=== PATIENT | female | born 1965 | race African-American/Black ===

== ENCOUNTER 2021-01-30 15:10 | Inpatient (IN) | payer MEDICARE, SELFPAY ==
[2021-01-30] VITALS (17 sets, daily range): BP systolic 158–206; BP diastolic 66–94; PULSE 79–88; RESP 12–19; TEMP 36.1; O2SAT 98–100
--- NOTE | ~2021-01-30 | CT_ITS ---
EXAMINATION: CTA chest PE protocol DATE: 02/07/2021 08:30 INDICATION: Dyspnea on exertion. TECHNIQUE: Computed tomography (CT) pulmonary angiogram of the chest was performed with 100 mL Omnipa que-350 intravenous contrast. Additional 3D reconstructions utilizing coronal maximum intensity proje ction (MIP) were performed. Automated exposure control and iterative reconstruction technique were em ployed. The dose-length product was 490.89 mGy-cm. COMPARISON: None FINDINGS: Excellent contrast opacification of the pulmonary arteries. There is mild streak artifact from dense contrast in the superior vena cava and right atrium. Mild scattered respiratory motion artifact. Over all this only mildly decreases sensitivity in some of the smaller subsegmental pulmonary arteries. No pulmonary embolism. Mild dependent atelectasis in the bilateral lower lobes. No pneumonia, pulmonary edema, pleural effusion or pneumothorax. Cardiomegaly. Atherosclerotic coronary artery calcific lesi ons versus stenting. No pericardial effusion. Thoracic aorta is normal in caliber with no dissection. No pathologically enlarged thoracic lymphadenopathy. Small sliding-type hiatal hernia. 1.7 cm parape lvic cyst at the upper pole of the left kidney. Visualized upper abdomen is otherwise unremarkable. M ild thoracic spondylosis. IMPRESSION: 1. Mild dependent atelectasis in the bilateral lower lobes. No pulmonary embolism or other acute card iopulmonary disease. 2. Cardiomegaly. 3. Small sliding-type hiatal hernia. Reviewed, dictated and finalized at [facility]. IAGE AND FAMILY THERAPIST IMPRESSION: 1. Mild dependent atelectasis in the bilateral lower lobes. No pulmonary emboli sm or other acute cardiopulmonary disease. 2. Cardiomegaly. 3. Small sliding-type hiatal hernia.
--- NOTE | ~2021-01-30 | US_ITS ---
EXAMINATION: US soft tissue buttock RT DATE: 02/05/2021 13:04 INDICATION: Hidradenitis. Right buttock drainage. TECHNIQUE: Multiple grayscale and Doppler ultrasound images of the buttocks were obtained. COMPARISON: CT abdomen and pelvis 01/30/2021 FINDINGS: In the subcutaneous right buttock, there is soft tissue of heterogeneous echogenicity with increased vascularity. IMPRESSION: 1. Heterogeneous subcutaneous soft tissue in right buttock with increased vascularity, consistent wit h inflammation. There is likely not a significant drainable component. Reviewed, dictated and finalized at location A. APPLICATION DEVELOPER IMPRESSION: 1. Heterogeneous subcutaneous soft tissue in right buttock with increased vascu larity, consistent with inflammation. There is likely not a significant draina ble component.
--- NOTE | ~2021-01-30 | NM_ITS ---
EXAMINATION: NM eryn stress w perfusion DATE: 02/10/2021 15:02 INDICATION: Coronary artery disease presenting with arrhythmia and shortness of breath TECHNIQUE: Rest images were obtained following intravenous administration of 7.9 mCi Tc99m tetrofosmi n (Myoview). The patient was infused intravenously with Lexiscan (Regadenoson). Then, 25.3 mCi Tc99m tetrofosmin (Myoview) was administered intravenously, and stress images were obtained. Data was recon structed into short axis and horizontal and vertical long axis SPECT images. Gated SPECT images were also obtained. COMPARISON: None. FINDINGS: There is no definite reversible or fixed perfusion abnormality to suggest ischemia or infar ction. There is normal left ventricular chamber size, wall motion and ejection fraction. Left ventr icular ejection fraction measures >70%. IMPRESSION: 1. Normal myocardial perfusion at rest and during stress. 2. Left ventricular ejection fraction measuring >70%. Reviewed, dictated and finalized at location . R COUNSELOR
--- NOTE | ~2021-01-30 | XR_ITS ---
XR chest 1V portable DATE: 02/08/2021 13:13 INDICATION: Assess percutaneous line placement TECHNIQUE: Portable upright AP chest on 02/08/2021 at 13 0 cm COMPARISON: 02/03/2021 CT pulmonary scan 02/01/2021 portable AP chest FINDINGS: There is cardiomegaly and coronary artery calcification. No pulmonary infiltrate or consoli dation, pleural effusion or pulmonary vascular congestion or pneumothorax. Right internal jugular central venous catheter tip overlies the superior cavoatrial junction. No pneu mothorax. IMPRESSION: Right internal artery as well as central venous catheter tip near superior cavoatrial yuri ction Cardiomegaly, coronary artery calcification Reviewed, dictated and finalized at location A. RETE MIXER OPERATOR HELPER IMPRESSION: Right internal artery as well as central venous catheter tip near s uperior cavoatrial junction Cardiomegaly, coronary artery calcification
--- NOTE | ~2021-01-30 | CT_ITS ---
EXAMINATION: CT abdomen pelvis wo con DATE: 01/30/2021 18:47 INDICATION: Right buttocks pain. Upper abdominal pain. TECHNIQUE: Computed tomography (CT) of the abdomen and pelvis was performed with 100 cc Omnipaque 350 intravenous contrast. The dose-length product was 992.43 mGy-cm. Automated exposure control and iter ative reconstruction technique were employed. COMPARISON: None. FINDINGS: Lung bases are unremarkable. No significant pleural or pericardial effusion. There is subcu taneous fatty infiltration with skin thickening in the right gluteal region extending to the perirect al space and also across the midline into the left gluteal region. Findings suspicious for cellulitis . No definite drainable fluid collection to suggest abscess. There is extensive atherosclerosis. There are gallstones with moderate gallbladder distention. The liver, spleen, pancreas, adrenal gland s are unremarkable. There are nonobstructing bilateral renal stones. No hydronephrosis. Nonobstructiv e bowel gas pattern. There is bladder wall thickening. No acute osseous abnormality. IMPRESSION: 1. Extensive subcutaneous fatty infiltration with bilateral gluteal skin thickening extending to the perirectal space. Findings compatible with cellulitis. No drainable fluid collection to suggest absce ss. 2: Cholelithiasis. 3: Nonobstructing bilateral renal stones. Reviewed, dictated and finalized at location A. ING MACHINE OPERATOR IMPRESSION: 1. Extensive subcutaneous fatty infiltration with bilateral gluteal skin thicke peace extending to the perirectal space. Findings compatible with cellulitis. No drainable fluid collection to suggest abscess. 2: Cholelithiasis. 3: Nonobstructing bilateral renal stones.
--- NOTE | ~2021-01-30 | XR_ITS ---
EXAMINATION: XR chest 2V 01/30/2021 15:47 INDICATION: Left chest pain PROCEDURE: 2 views of the chest COMPARISON: No prior studies for comparison. FINDINGS: There is a focal nodular density in the left upper lung medially may represent prominent co stal cartilage calcification, although follow-up CT recommended to exclude pulmonary nodule. The card iomediastinal silhouette is within normal limits. There are no pleural effusions. There is no pneum othorax suspected. There is a vascular stent in the left upper extremity. IMPRESSION: 1: NO ACUTE CARDIOPULMONARY DISEASE. 2: Focal nodular density in the left upper lung medially may represent prominent costal cartilage luis a cification, although follow-up CT recommended to exclude pulmonary nodule. Reviewed, dictated and finalized at location A. SCHOOL PROFESSIONAL IMPRESSION: 1: NO ACUTE CARDIOPULMONARY DISEASE. 2: Focal nodular density in the left upper lung medially may represent prominen t costal cartilage calcification, although follow-up CT recommended to exclude pulmonary nodule.
--- NOTE | ~2021-01-30 | XR_ITS ---
EXAMINATION: XR chest port-a-cath/central DATE: 02/01/2021 14:01 INDICATION: Central line placement. TECHNIQUE: A single frontal view of the chest was obtained. COMPARISON: Chest 2 views 01/30/2021, CT abdomen and pelvis 01/30/2021 FINDINGS: The chest demonstrates clear lungs without pneumonia, pleural effusion, or pneumothorax. Th e heart size is normal. There is a right internal jugular central venous catheter with tip at superio r cavoatrial junction. IMPRESSION: 1. Central line tip at superior cavoatrial junction. Reviewed, dictated and finalized at location A. HEALTH CARE WORKER
--- NOTE | ~2021-01-30 | CT_ITS ---
EXAMINATION: CT abdomen pelvis wo con DATE: 02/06/2021 14:46 INDICATION: Hidradenitis. Sore on the buttocks. TECHNIQUE: Computed tomography (CT) of the abdomen and pelvis was performed without intravenous contr ast. Automated exposure control and iterative reconstruction technique were employed. The dose-length product was 1286.15 mGy-cm. COMPARISON: None FINDINGS: Mild linear discoid atelectasis in the left and right lower lobes. Heart size is normal. No pericardi al or pleural effusion. Multiple small calcified gallstones in the dependent aspect of the normal gal lbladder. No gallbladder wall thickening or pericholecystic inflammatory stranding to suggest acute c holecystitis. Liver is normal with no intrahepatic biliary ductal dilation. Spleen, pancreas and bila teral adrenal glands are normal. 1.6 cm parapelvic cyst at the upper pole of the left kidney. There a re multiple calcifications at the bilateral kidneys which could represent nonobstructing nephrolithia sis or more likely atherosclerotic calcific lesions with additional extensive atherosclerotic calcifi cations along many of the arteries of the abdomen and pelvis which suggests diabetes. Bowels includin g the appendix are normal. Diffuse wall thickening of the incompletely distended bladder which could be due to partially decompressed state but could also be seen with cystitis either acute or chronic. A small calcified fibroid at the right side of the uterine fundus. No free intraperitoneal gas or flu id. No pathologically enlarged abdominal or pelvic lymphadenopathy. There is been some interval incre ase in both extent and degree of skin thickening and infiltration of the immediately underlying super ficial subcutaneous fat at the right buttock which extends across the midline to involve the left dean e of the gluteal crease which extends caudally to the proximal most aspect of the posterior medial bi lateral thighs. No abscess or evident deeper extension of the inflammatory changes. Bones are unremar kable. IMPRESSION: 1. Interval progression of extent and degree of skin thickening and infiltration of the superficial s ubcutaneous fat at the right buttock and medial left buttock consistent with cellulitis without assoc iated abscess. 2. Cholelithiasis. 3. Possible bilateral nonobstructing nephrolithiasis versus renal artery atherosclerotic calcificatio ns. Reviewed, dictated and finalized at [facility]. WRAPPER IMPRESSION: 1. Interval progression of extent and degree of skin thickening and infiltratio n of the superficial subcutaneous fat at the right buttock and medial left butt ock consistent with cellulitis without associated abscess. 2. Cholelithiasis. 3. Possible bilateral nonobstructing nephrolithiasis versus renal artery athero sclerotic calcifications.
--- NOTE | 2021-01-30 15:18 | ECG_ITS ---
Measurements Intervals [place] Rate: 85 P: 71 NM: 156 QRS: 19 QRSD: 94 T: 72 QT: 388 QTc: 462 Interpretive Statements SINUS RHYTHM POSSIBLE RIGHT ATRIAL ENLARGEMENT POSSIBLE LEFT ATRIAL ENLARGEMENT BORDERLINE R WAVE PROGRESSION, ANTERIOR LEADS BORDERLINE ST-T WAVE ABNORMALITY- HIGH LATERAL LEADS BORDERLINE ECG Electronically Signed On 01-30-2021 15:52:00 FIELD LOGISTICS COORDINATOR by Bruce Henry D.O.
[2021-01-30 15:41] LABS: Hematocrit 38.5 % (37.0-47.0); Hemoglobin 12.3 g/dL (12.0-15.0); Mean Corpuscular HGB Conc 31.9 g/dl (32-36); Mean Corpuscular Hemoglobin 30.6 pg (26-34); Mean Corpuscular Volume 95.8 fl (80-100); Mean Platelet Volume 9.8 fl (7.4-10.4); Platelet Count Result 342 k/mm3 (150-375); Red Blood Count 4.02 M/mm3 (4.2-5.4); Red Cell Distribution Width 15.9 % (11.5-14.5); White Blood Count 25.3 K/mm3 (4.5-10.0)
[2021-01-30 15:50] LABS: Alanine Aminotransferase 14 U/L (4-35); Albumin Level 3.9 g/dL (3.5-5.1); Alkaline Phosphatase 246 U/L (38-126); Anion Gap 8 mmol/L (8-16); Aspartate Amino Transferase 21 U/L (14-36); Bilirubin,Total 0.9 mg/dL (0.2-1.3); Blood Urea Nitrogen 22 mg/dL (7-17); Calcium 9.6 mg/dL (8.4-10.2); Carbon Dioxide 30 mmol/L (22-30); Chloride 95 mmol/L (98-107); Estimated CRCL calculation 14 ml/min; Estimated Glomerular Filt Rate 9; Glucose 129 mg/dL (65-110); Lipase 45 U/L (23-300); Potassium 4.2 mmol/L (3.4-5.0); Sodium 133 mmol/L (137-145)
[2021-01-30 15:51] LABS: Partial Thromboplastin Time 26.9 SECONDS (22.3-36.8); Prothrombin Time 13.3 Seconds (11.1-14.7)
[2021-01-30 16:01] LABS: Troponin I < 0.012 ng/mL (0.000-0.034)
[2021-01-30 16:05] LABS: Band Neutrophils Percent 2 % (0-6); Lymphocytes Absolute Manual 3.28 K/mm3 (1.1-4.5); Monocytes Percent Manual 2 % (3-9); Neutrophils Percent Manual 83 % (46-73); Total Cells Counted 100
[2021-01-30 16:06] LABS: Anisocytosis 2+ (NORMAL); Platelet Estimate Adequate (Adequate)
--- NOTE | 2021-01-30 17:27 | PC.NURSE ---
Dr. Schofield at bedside for pt assessment.
--- NOTE | 2021-01-30 17:43 | PC.NURSE ---
Attempted IV access x1 without success. Pt can only have sticks on right upper extremity and refuses to allow any attempts made anywhere other than right hand.
--- NOTE | 2021-01-30 17:48 | ED.CHESTPAIN ---
HPI - Chest Pain General Chief Complaint: Chest Pain Stated Complaint: CP, Jaw Pain, Shoulder Pain, Nausea Time Seen by Provider: 01/30/21 17:19 Source: patient and RN notes reviewed Mode of arrival: ambulatory Limitations: no limitations History of Present Illness HPI narrative: This is a 55 year old female with history of ESRD on dialysis, hypertension, CHF and CAD s/p stent who presents for evaluation of chest pain and shortness of breath. She had dialysis yesterday, and she has not felt well since she got home yesterday. She has been having intermittent upper abdominal and left lower chest pain since last night. She describes her pain has dull ache that is worse with laying supine and exertion. She also reports associated nausea, vomiting, shortness of breath. She has pain in her jaw and left arm. She denies pain currently. She developed nausea and vomiting with pushing on her abdomen. She also reports diarrhea. She just moved here from [place] so she does not have primary care physician or signal maintainer. 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 Related Data Home Medications Medication Instructions Recorded Confirmed B complex with C 20-folic acid 1 cap PO DAILY 01/30/21 [Triphrocaps] atorvastatin 10 mg PO HS 01/30/21 carvedilol 25 mg PO BID 01/30/21 cephalexin 500 mg PO Q12H 01/30/21 doxycycline hyclate 100 mg PO DAILY 01/30/21 gabapentin 100 mg PO HS 01/30/21 nifedipine 60 mg PO DAILY 01/30/21 omeprazole 20 mg PO DAILY 01/30/21 Allergies Allergy/AdvReac Type Severity Reaction Status Date / Time No Known Allergies Allergy Verified 01/30/21 18:06 Review of Systems Review of Systems: All systems reviewed & are unremarkable except as noted in HPI and below PMFSH Past Medical History Medical History (Updated 01/30/21 @ 21:48 by Gale Schofield MD) CHF (congestive heart failure) Coronary artery disease ESRD on dialysis Hypertension Surgical History Surgical History (Updated 01/30/21 @ 17:58 by Gale Schofield MD) History of coronary artery stent placement Social History Social History (Updated 01/30/21 @ 17:58 by Gale Schofield MD) Smoking status: Never smoker Exam Const: General: alert Orientation/consciousness: patient oriented x3 Eyes: EOM: EOMs intact bilaterally Resp: Effort & Inspection: normal respiratory effort and no retractions Auscultation: clear to auscultation bilaterally Cardio: Rate: regular rate Rhythm: regular rhythm Heart sounds: no murmurs GI: GI Palp: Yes Soft to palpation, Yes Tenderness to palpation present (GI) (epigastric, LUQ) and No Guarding due to palpation present (GI) : General: Yes no CVA tenderness Skin: General skin exam: normal color Rashes: no rashes Neuro: General: patient oriented x3, moves all extremities and CN's II-XI intact bilaterally Psych: Mental Status: mental status grossly normal Affect: normal affect Course Reevaluation(s) Reevaluation #1: I have discussed with patient that she will be admitted to hospital for her elevated wbc with cellulitis, chest pain with high risk. She is agreeable. Patient with nausea and vomiting so aspirin not given at this time. Date: 01/30/21 Time: 19:28 Consultations Consultation #1: Naty Amaya with hospitalist accepts patient to service Date: 01/30/21 Time: 19:28 Consultation #2: Dr. Alvarez agrees to consult . He will see patient tomorrow to arrange for dialysis Date: 01/30/21 Time: 19:29 Consultation #3: Dr. Schroeder agrees to consult. Request patient NPO after midnight. Date: 01/30/21 Time: 19:34 Vital Signs Vital signs: Vital Signs Temperature 97.0 F L 01/30/21 15:15 Pulse Rate 88 01/30/21 15:15 Respiratory Rate 14 01/30/21 15:15 Blood Pressure 206/89 H 01/30/21 15:15 Pulse Oximetry 100 01/30/21 15:15 Temperature 97.0 F L 01/30/21 15:15 Pulse Rate 85 01/30/21 20:31 Respiratory Rate 15 01/30/21 20:31 Blood Pressure 176/90 H
--- NOTE | 2021-01-30 18:33 | PC.NURSE ---
Pt to CT.
[2021-01-30 18:55] LABS: Troponin I 0.012 ng/mL (0.000-0.034)
[2021-01-30] MEDS: ONDANSETRON INJ 4 MG/2 ML VIAL IV PUSH (19:02)
[2021-01-30] MEDS: hydrALAZINE HCL 20 MG/ML VIAL 10 MG IV PUSH (19:23)
[2021-01-30 20:42] LABS: Glucose Point of Care 116 mg/dl (65-105)
[2021-01-30 21:25] LABS: Troponin I 0.015 ng/mL (0.000-0.034)
--- NOTE | 2021-01-30 23:46 | PM.IMHP ---
H&P: HPI History of Present Illness Date/Time: 01/30/21 23:46 this is a 55-year-old female patient who has a history of end-stage renal disease and has dialysis on Wednesday and Wednesday. The patient stated that her last dialysis was Wednesday and she has not felt very well since then. 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 The wound to her buttocks is losing thick white drainage and has a order smell to it. The patient stated that she also has some pain to her buttocks. The patient has been having some intermittent apart abdominal pain and left lower chest pain since last night. She stated her pain was dull and was worse when she was lying supine and also with exertion. The patient has been having some nausea vomiting and shortness of breath. She also had some pain to her drawn left arm. Her pain is now relieved. The patient stated that she recently moved to [place] from [place] and does not have a primary care physician or employment clerk. 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 Cardiology and Nephrology have been consulted. Abdominal pelvis CT was read as extensive subcutaneous fatty infiltration and bilateral gluteal skin thickening extending in the perirectal space. Findings compatible with cellulitis. No drainable fluid collection to suggest abscess. Cholelithiasis. Nonobstructive bilateral renal stones. When I assessed the patient I was able to express some thick white drainage from the right buttocks. We did culture that in the emergency room. Blood cultures were drawn in the emergency room as well. Chest x-ray was read as no acute cardiopulmonary disease. Focal nodular density in the left upper lung medial may represent prominent costal cartilage calcification although follow-up CT recommend to exclude pulmonary nodule. The patient was started on Primaxin and vancomycin as per antibiotic stewardship for diabetic cellulitis. Her white count is 25.3. Sodium 133. Chloride 95. BUN 22 creatinine 4.8. Troponin is negative x3. Alkaline phosphatase 246. Capillary glucose 116. The patient is being admitted to observation status on the date of service 01/30/2021. Chief Complaint: Chest pain Review of Systems Review of Systems: All systems reviewed & are unremarkable except as noted in HPI and below Constitutional: Constitutional: Reports as per HPI and Reports no additional constitutional complaints Eyes: Eyes: Reports as per HPI and Reports no additional eye complaints ENT: Reports system reviewed and no additional complaints, except as documented and Reports Normal hearing present Cardiovascular: Cardiovascular: Reports no additional cardiovascular complaints Respiratory: Respiratory: Reports no additional respiratory complaints and Reports no additional respiratory complaints Gastrointestinal: Gastrointestinal: Reports as per HPI and Reports no additional gastrointestinal complaints Musculoskeletal: Musculoskeletal: Reports no additional musculoskeletal complaints Integumentary/Breasts: Skin/Breast: Reports system reviewed and no additional complaints, except as docu and Reports as per HPI Neurologic: Reports system reviewed and no additional complaints, except as documented, Reports as per HPI and Reports Normal hearing present Psychiatric: Psychiatric: Reports no additional psychiatric complaints and Reports as per HPI Endocrine: Endocrine: Reports no additional endocrine complaints Hematologic/Lymphatic: Hematologic/Lymphatic: Reports no additional hematologic/lymphatic complaints Allergic/Immunologic: Allergic/Immunologic: Reports no additional allergic/immunologic complaints [facility] Past Medical History Medical History (Updated 01/30/21 @ 23:54 by Naty Amaya NP) AV fistula Left forearm CHF (congestive heart failure) Coronary artery disease DM2 (diabetes mellitus, type 2) ESRD on dialysis Hypertension Surgical History Surgical History (Upd
[2021-01-31] VITALS (22 sets, daily range): BP systolic 150–194; BP diastolic 41–101; PULSE 72–97; RESP 16; TEMP 36–37.2; O2SAT 100; BMI 34.9
--- NOTE | 2021-01-31 | ECHO_ITS ---
Patient Info Name: Sussy Jarvis Age: 55 years : 1965 Gender: Female Ht: 65 in Wt: 211 lbs BSA: 2.14 m2 HR: 82 bpm BP: 177 / 81 mmHg Heart Rhythm: Sinus Rhythm Technical Quality: Good Exam Date: 01/31/2021 2:44 PM Exam Location: [facility] Card Pulmonary Patient Status: Inpatient Admit Date: 01/31/2021 Staff Ordering Physician: Naty Amaya NP Glass Grinder: SHEYLA Attending Provider: Clifford Choi MD Referring Physician: Jose Luis MORALES; Exam Type: CA echo doppler color flow Study Info Indications - SOB, HX CHF Complete two-dimensional, color flow and Doppler transthoracic echocardiogram is performed. Summary 1. Complete two-dimensional, color flow and Doppler transthoracic echocardiogram is performed. 2. Left ventricular chamber dimension is mildly enlarged. 3. Left ventricular systolic function is normal, estimated at 55%. 4. There is mildly increased left ventricular wall thickness. 5. Left ventricular septal wall motion is abnormal with septal motion related to bundle branch block. 6. The left ventricular diastolic function is grade I diastolic dysfunction. 7. There is trace tricuspid valve regurgitation. 8. No pulmonary hypertension, estimated pulmonary arterial systolic pressure is 33 mmHg. 9. There is mild to moderate mitral valve regurgitation. Left Ventricle Left ventricular chamber dimension is mildly enlarged. Left ventricular systolic function is normal, estimated at 55%. There is mildly increased left ventricular wall thickness. Left ventricular septal wall motion is abnormal with septal motion related to bundle branch block. The left ventricular diastolic function is grade I diastolic dysfunction. Right Ventricle Right ventricular chamber dimension is normal. Right ventricular systolic function is normal. Left Atria Left atrial chamber dimension is mildly enlarged. Right Atria Right atrial chamber dimension is mildly enlarged. Aortic Valve The aortic valve is trileaflet. There is no aortic valve stenosis. There is no aortic valve regurgitation. Pulmonic Valve The pulmonic valve is not well visualized. There is trace pulmonic regurgitation. Mitral Valve The mitral valve has thickened leaflets. There is mild to moderate mitral valve regurgitation. The mitral valve annulus is mildly calcified. Tricuspid Valve The tricuspid valve leaflets are normal. There is trace tricuspid valve regurgitation. No pulmonary hypertension, estimated pulmonary arterial systolic pressure is 33 mmHg. Pericardium/Pleural The pericardium appears normal. There is small pericardial effusion. Inferior Vena Cava Normal inferior vena cava with >50% collapse upon inspiration consistent with normal right atrial pressure, 5 mmHg. Aorta The aortic root size at the sinus of Valsalva is normal. Left Ventricular Outflow Tract Name Value Normal LVOT 2D LVOT Diameter 2.1 cm LVOT Doppler LVOT Peak Gradient 5 mmHg LVOT Mean Gradient 3 mmHg LVOT VTI 23 cm LVOT VTI/AV VTI Rat
[2021-01-31] MEDS: diphenhydrAMINE HCl CAP 25 MG CAPSULE PO (03:23)
[2021-01-31] MEDS: ACETAMINOPHEN 325 MG TABLET 650 MG PO ×2 (03:55→14:02)
[2021-01-31 05:59] LABS: Basophils Absolute Auto 0.1 K/mm3 (0.0-0.1); Basophils Percent Auto 0.3 % (0.2-1.2); Eosinophils Absolute Auto 0.3 K/mm3 (0-0.3); Eosinophils Percent Auto 1.2 % (0-4.4); Hematocrit 30.2 % (37.0-47.0); Hemoglobin 9.7 g/dL (12.0-15.0); Immature Granulocyte Absolute 0.14 K/mm3 (0.00-0.031); Immature Granulocyte Percent A 0.6 % (0-0.5); Lymphocytes Absolute Auto 2.82 K/mm3 (0.9-3.2); Lymphocytes Percent Auto 11.4 % (18.3-44.2); Mean Corpuscular HGB Conc 32.1 g/dl (32-36); Mean Corpuscular Hemoglobin 30.4 pg (26-34); Mean Corpuscular Volume 94.7 fl (80-100); Mean Platelet Volume 10.3 fl (7.4-10.4); Monocytes Absolute Auto 1.1 K/mm3 (0.1-0.6); Monocytes Percent Auto 4.6 % (2.6-8.5); Neutrophils Absolute Auto 20.2 K/mm3 (1.3-6.7); Neutrophils Percent Auto 81.9 % (45.5-73.1); Platelet Count Result 321 k/mm3 (150-375); Red Blood Count 3.19 M/mm3 (4.2-5.4); Red Cell Distribution Width 15.9 % (11.5-14.5); White Blood Count 24.7 K/mm3 (4.5-10.0)
[2021-01-31 06:14] LABS: Lactic Acid Reflex < 0.5 mmol/L (0.7-2.1)
[2021-01-31 06:15] LABS: Alanine Aminotransferase 9 U/L (4-35); Albumin Level 2.9 g/dL (3.5-5.1); Alkaline Phosphatase 158 U/L (38-126); Anion Gap 7 mmol/L (8-16); Aspartate Amino Transferase 17 U/L (14-36); Bilirubin,Total 0.6 mg/dL (0.2-1.3); Blood Urea Nitrogen 24 mg/dL (7-17); Calcium 8.8 mg/dL (8.4-10.2); Carbon Dioxide 29 mmol/L (22-30); Chloride 94 mmol/L (98-107); Estimated CRCL calculation 13 ml/min; Estimated Glomerular Filt Rate 10; Glucose 89 mg/dL (65-110); Lactate Dehydrogenase 271 U/L (313-618); Magnesium 1.8 mg/dL (1.6-2.3); Potassium 3.7 mmol/L (3.4-5.0); Sodium 130 mmol/L (137-145)
--- NOTE | 2021-01-31 06:37 | ECG_ITS ---
Measurements Intervals [place] Rate: 76 P: 65 [place]: 174 QRS: 22 QRSD: 93 T: 66 QT: 407 QTc: 460 Interpretive Statements SINUS RHYTHM NORMAL ECG Electronically Signed On 02-04-2021 8:30:55 COMMUNITY RELATIONS REPRESENTATIVE by Bruce Henry D.O.
[2021-01-31 07:00] LABS: Platelet Estimate Adequate (Adequate)
[2021-01-31 07:01] LABS: Anisocytosis 2+ (NORMAL); Stomatocytes 1+ (NORMAL)
[2021-01-31 07:09] LABS: Hepatitis B Surface Antigen Negative (Negative)
[2021-01-31 07:15] LABS: HAV RESULT Negative (Negative); Hepatitis B Core IgM Result Negative (Negative)
[2021-01-31 07:38] LABS: Hepatitis B Surface Anti Res Positive; Hepatitis C Virus Antibody Negative (Negative)
--- NOTE | 2021-01-31 08:55 | PC.NURSE ---
pts 0900 meds held due to pending dialysis
--- NOTE | 2021-01-31 09:00 | PC.NURSE ---
Patient transferred to Dialysis via bedcart. Patients 0900 medications held till after dialysis per Physician.
[2021-01-31 09:27] LABS: Hemoglobin A1C 6.2 % (<5.7)
[2021-01-31] MEDS: SODIUM CHLORIDE 0.9% IV 1,000 ML 999 ML IV CONT (10:58)
--- NOTE | 2021-01-31 11:32 | PM.IMPN ---
Progress Note: A&P Assessment and Plan (1) Cellulitis and abscess of buttock: Code(s): L02.31 - Cutaneous abscess of buttock; L03.317 - Cellulitis of buttock Status: Acute Assessment and Plan: As per diabetic cellulitis antibiotic stewardship the patient was started on Primaxin and vancomycin. Wound and blood cultures are pending. Surgery consulted patient has a history of hidradenitis suppurativa follow wound culture. (2) ESRD on dialysis: Code(s): N18.6 - End stage renal disease; Z99.2 - Dependence on renal dialysis Status: Acute Assessment and Plan: Patient has dialysis on Wednesday and nephrology has been consulted. (3) Hypertension: Code(s): I10 - Essential (primary) hypertension Status: Chronic Assessment and Plan: Continue with home medications. nifedipine and carvedilol. (4) CHF (congestive heart failure): Code(s): I50.9 - Heart failure, unspecified Status: Chronic Assessment and Plan: Most likely diastolic stable continue home medication Continue with Coreg. I did order an echo as well. (5) DM2 (diabetes mellitus, type 2): Code(s): E11.9 - Type 2 diabetes mellitus without complications Status: Chronic Assessment and Plan: Accu-Cheks AC and HS. Sliding scale insulin. Subjective Date/time seen: 01/31/21 11:32 Interval history: Patient seen and examined Patient presented to the hospital with increased discharge from skin wound where she was found to have sepsis secondary to abscess patient has history of hydradenitis suppurativa Patient denies fever headache chest pain shortness of breath I am seeing the patient for sepsis Exam Narrative: Alert Chest no wheeze crackles Abdomen nontender nondistended CVS S1 + S2 Skin of the buttock bilateral area of inflammation and oozing of scan consistent with cellulitis and hidradenitis suppurative and abscess Lower extremity edema Objective Data Vital Signs Vital Signs: Vital Signs - 24 hr 01/30/21 15:15 01/30/21 17:32 01/30/21 17:33 Temperature 97.0 F L Pulse Rate 88 Respiratory Rate 14 17 Blood Pressure 206/89 H Pulse Oximetry 100 100 100 01/30/21 17:42 01/30/21 17:45 01/30/21 17:47 Temperature Pulse Rate 82 83 Respiratory Rate 18 19 Blood Pressure 172/82 H Pulse Oximetry 98 100 100 01/30/21 18:00 01/30/21 18:01 01/30/21 18:15 Temperature Pulse Rate 82 80 82 Respiratory Rate 17 17 13 Blood Pressure 164/71 H Pulse Oximetry 100 100 100 01/30/21 18:45 01/30/21 18:46 01/30/21 19:00 Temperature Pulse Rate 85 83 81 Respiratory Rate 18 12 13 Blood Pressure 174/75 H Pulse Oximetry 100 100 100 01/30/21 19:01 01/30/21 19:22 01/30/21 20:31 Temperature Pulse Rate 81 79 85 Respiratory Rate 14 15 15 Blood Pressure 196/94 H 176/90 H Pulse Oximetry 100 100 100 01/30/21 21:47 01/30/21 23:52 01/31/21 02:49 Temperature Pulse Rate 82 84 82 Respiratory Rate 18 17 16 Blood Pressure 158/66 H 170/81 H 177/81 H Pulse Oximetry 100 99 100 01/31/21 09:15 01/31/21 09:28 01/31/21 09:45 Temperature 98.9 F Pulse Rate 82 73 75 Respiratory Rate 16 Blood Pressure 192/93 H 186/101 H 185/95 H Pulse Oximetry 01/31/21 10:00 01/31/21 10:15 01/31/21 10:30 Temperature Pulse Rate 75 97 77 Respiratory Rate Blood Pressure 189/98 H 150/81 H 183/99 H Pulse Oximetry 01/31/21 10:45 01/31/21 11:00 01/31/21 11:15 Temperature Pulse Rate 79 77 78 Respiratory Rate Blood Pressure 167/41 H 191/91 H 180/91 H Pulse Oximetry Intake/Output Intake/Output: Intake & Output 01/28/21 01/29/21 01/30/21 01/31/21 23:59 23:59 23:59 23:59 Intake Total 600 100 Balance 600 100 Meds/Results Medications: Active Medications Generic Name Dose Route Start Last Admin Trade Name Freq PRN Reason Stop Dose Admin Acetaminophen 650 mg 01/31/21 03:42 01/31/21 03:55 Acetaminophen 32
--- NOTE | 2021-01-31 12:25 | PM.PNNEP ---
Progress Note: A&P Assessment and Plan (1) End stage renal disease: Code(s): N18.6 - End stage renal disease Status: Chronic Assessment and Plan: HD today and continue M/W/ schedule follow electrolytes, volume status, and clearance (2) Cellulitis and abscess of buttock: Code(s): L02.31 - Cutaneous abscess of buttock; L03.317 - Cellulitis of buttock Status: Acute Assessment and Plan: as demonstrated by physical exam and imaging studies appropriate cultures obtained continue IV antibiotic therapy General Surgery consulted -- further intervention needed (I & D?) (3) Hypertension: Code(s): I10 - Essential (primary) hypertension Status: Chronic Assessment and Plan: elevated at this time resume home medications follow trend of hemodynamics may need further adjustment to medication (versus additions of PRN meds) (4) DM2 (diabetes mellitus, type 2): Code(s): E11.9 - Type 2 diabetes mellitus without complications Status: Chronic Assessment and Plan: follow accuchecks glycemic control FULL CONSULT to follow. Subjective Date/time seen: 01/31/21 12:25 Patient tolerating hemodialysis treatment well at the time of my visit (seen on HD at 12:15PM); no acute distress voiced; pain control seems adequate; no other complaints/concerns to report currently; no issues/events overnight or earlier this morning. Exam Narrative: General: WD/WN AA female in NAD Heart: normal S1 and S2; no rub Lungs: clear to auscultation Abdomen: soft, nontender, nondistended, positive bowel sounds Extremities: no cyanosis or clubbing; trace edema Skin: erythema/drainage from right buttock area Objective Data Vital Signs Vital Signs: Vital Signs Temp Pulse Resp BP Pulse Ox 01/31/21 12:15 81 194/91 H 01/31/21 12:00 78 190/92 H 01/31/21 11:45 78 191/98 H 01/31/21 11:30 78 183/91 H 01/31/21 11:15 78 180/91 H 01/31/21 11:00 77 191/91 H 01/31/21 10:45 79 167/41 H 01/31/21 10:30 77 183/99 H 01/31/21 10:15 97 150/81 H 01/31/21 10:00 75 189/98 H 01/31/21 09:45 75 185/95 H 01/31/21 09:28 73 186/101 H 01/31/21 09:15 37.2 C 82 16 192/93 H 01/31/21 02:49 82 16 177/81 H 100 01/30/21 23:52 84 17 170/81 H 99 01/30/21 21:47 82 18 158/66 H 100 01/30/21 20:31 85 15 176/90 H 100 01/30/21 19:22 79 15 196/94 H 100 01/30/21 19:01 81 14 100 01/30/21 19:00 81 13 100 01/30/21 18:46 83 12 174/75 H 100 01/30/21 18:45 85 18 100 01/30/21 18:15 82 13 100 01/30/21 18:01 80 17 164/71 H 100 01/30/21 18:00 82 17 100 01/30/21 17:47 83 19 172/82 H 100 01/30/21 17:45 82 18 100 01/30/21 17:42 98 01/30/21 17:33 100 01/30/21 17:32 17 100 01/30/21 15:15 36.1 C L 88 14 206/89 H 100 Intake/Output Intake/Output: Intake & Output 01/28/21 01/29/21 01/30/21 01/31/21 23:59 23:59 23:59 23:59 Intake Total 600 100 Output Total 1000 Balance 600 -900 Meds/Results Medications: Active Medications Generic Name Dose Route Start Last Admin Trade Name Janusz PRN Reason Stop Dose Admin Acetaminophen 650 mg 01/31/21 03:42 01/31/21 03:55 Acetaminophen 325 Mg Tablet PO 650 mg Q6H PRN Administration Mild Pain (1-3) or Fever Carvedilol 25 mg 01/31/21 11:50 Carvedilol 25 Mg Tablet PO Q12HR ROMULO Dextrose 12.5 gm 01/31/21 00:00 Dextrose 50% 25 Gm/50 Ml Syringe IV PUSH PRN PRN Hypoglycemia Protocol Doxycycline Hyclate 100 mg 01/31/21 09:00 Doxycycline Hyclate 100 Mg Tablet PO 03/03/21 08:59 DAILY ROMULO Glucagon 1 mg 01/31/21 00:00 Glucagon For Inj 1 Mg Vial IM PRN PRN Hypoglycemia Protocol Glucose 15 gm 01/31/21 00:00 Glucose Oral Gel 15 Gm Of Glucse In 37.5 Gm Tube PO PRN PRN Hypoglycemia Protoco
[2021-01-31] MEDS: NIFEdipine 30 MG TAB.ER.24 60 MG PO (13:46)
[2021-01-31] MEDS: DOXYCYCLINE HYCLATE 100 MG TABLET PO (13:46)
[2021-01-31] MEDS: PANTOPRAZOLE 40 MG TABLET PO (13:47)
--- NOTE | 2021-01-31 13:55 | PM.CNCAR ---
Assessment and Plan Assessment and plan (1) Chest pain: Code(s): R07.9 - Chest pain, unspecified Status: Acute Assessment and Plan: Resolved, atypical, negative serial cardiac enzymes most likely secondary to hypertensive urgency presentation. Although she has a history of CAD details in this regard are not known. She reports a prior history of stents but has not been maintained on aspirin for unclear reasons. Continue to monitor for recurrence. Aggressive medical therapy at this time. Will discuss noninvasive ischemic evaluation as an outpatient as appropriate after review of prior records. Telemetry for now. 2D echocardiogram to assess LV size/function, LV wall thickness, valve pathology pulmonary pressures. Recommendation to follow after review. Continue PPI for history of GERD. (2) Hypertensive urgency: Code(s): I16.0 - Hypertensive urgency Status: Acute Assessment and Plan: BP improved but remains rather hypertensive. Aggressive BP control. Add lisinopril 10 mg daily. Hydralazine if necessary. (3) Coronary artery disease: Code(s): I25.10 - Atherosclerotic heart disease of cahto coronary artery without angina pectoris Status: Acute Assessment and Plan: Reports prior history of stent implantation. Add aspirin 81 mg daily. Continue atorvastatin goal LDL less than 70. Check lipid panel. Obtain prior records from [place]. Please have patient sign a release of information. Further recommendations after review of these records. Patient may follow up with this as an outpatient in the office to be seen within 4 weeks. (4) Cellulitis and abscess of buttock: Code(s): L02.31 - Cutaneous abscess of buttock; L03.317 - Cellulitis of buttock Status: Acute Assessment and Plan: Her hospitalist service. (5) ESRD on dialysis: Code(s): N18.6 - End stage renal disease; Z99.2 - Dependence on renal dialysis Status: Acute Assessment and Plan: Per nephrology. Patient feeling much better after hemodialysis today. (6) CHF (congestive heart failure): Code(s): I50.9 - Heart failure, unspecified Status: Chronic Assessment and Plan: Patient is not in acute decompensated heart failure at this time. Volume management per hemodialysis. (7) DM2 (diabetes mellitus, type 2): Code(s): E11.9 - Type 2 diabetes mellitus without complications Status: Chronic Assessment and Plan: Per primary service. History of Present Illness History of Present Illness Consult date/time: Date of service: 01/31/21 13:55 Cardiology consultation at the request of Dr. Shi of the [facility] service for opinion regarding history of CAD and complaints of chest pain. Requesting physician: Jasmine Shi M.A., MD Consult reason: chest pain Reason For Visit: Buttock Cellulitis,Hypertension,Chest Pain,ESRD on Narrative: Patient is a very pleasant 55-year-old female recently relocated to this area from [place], [place] with a past medical history significant for CAD status post stent implantation 2-3 years ago, end-stage renal disease on hemodialysis Wednesday, hypertension, GERD, type 2 diabetes mellitus, mixed hyperlipidemia associated with diabetes mellitus, obesity who states she was in her usual state of health when she went to dialysis on Wednesday as scheduled in began to feel quite poorly thereafter. Patient states she typically feels nauseous and so does not eat prior to dialysis. However, she did not feel well and then awoke the following morning with abdominal pain and lower chest pain which radiated to the left chest, left shoulder and neck. This persisted for some time and was initially dull worse in supine position and activity. He noted some shortness of breath due to persistence she then presented to the emergency department for further evaluation. She initially thought her symptoms were secondary to acid
--- NOTE | 2021-01-31 14:00 | ADMGEN ---
This patient, Sussy Jarvis, was admitted to Medical Room 245-. Patient/family oriented to hospital policies and general routines including ID bracelet, bed and alarms, visiting hours, pain management, procedures, bathroom and other care routines, personal items, smoking policy, room service/diet, and visiting hours. Information on how to activate the Rapid Response Team has been discussed. Patient/Family are encouraged to report perceived risks to care and to ask questions if they do not understand what they are told or what they should do.
[2021-01-31 14:15] LABS: Glucose Point of Care 73 mg/dl (65-105)
[2021-01-31 16:39] LABS: Glucose Point of Care 150 mg/dl (65-105)
[2021-01-31] MEDS: lisinopriL 10 MG TABLET PO (17:24)
[2021-01-31] MEDS: carvediloL 25 MG TABLET PO (17:24)
[2021-01-31] MEDS: MAGNESIUM SULF 2 GM/WATER 50ML 2 GM/50 ML BAG IVPB (18:01)
[2021-01-31 21:42] LABS: Vancomycin Random 12.1 ug/mL (10-20)
[2021-01-31 21:43] LABS: Glucose Point of Care 167 mg/dl (65-105)
[2021-01-31] MEDS: traMADol HCL (*CRX) 25 MG TABLET PO (21:44)
[2021-02-01] VITALS (11 sets, daily range): BP systolic 117–155; BP diastolic 54–69; PULSE 65–88; RESP 16–20; TEMP 35.9–36.5; O2SAT 96–100
[2021-02-01 05:49] LABS: Cholesterol 105 mg/dL (0-200); HDL Direct 39 mg/dL; Triglycerides 66 mg/dL (<150)
[2021-02-01 06:00] LABS: LDL Cholesterol Direct 38 mg/dL
[2021-02-01] MEDS: traMADol HCL (*CRX) 25 MG TABLET PO ×3 (06:20→23:23)
[2021-02-01 07:38] LABS: Glucose Point of Care 121 mg/dl (65-105)
--- NOTE | 2021-02-01 09:22 | PM.IMPN ---
Progress Note: A&P Assessment and Plan (1) Cellulitis and abscess of buttock: Code(s): L02.31 - Cutaneous abscess of buttock; L03.317 - Cellulitis of buttock Status: Acute Assessment and Plan: As per diabetic cellulitis antibiotic stewardship the patient was started on Primaxin and vancomycin. Wound and blood cultures are pending. Surgery consulted patient has a history of hidradenitis suppurativa follow wound culture. (2) ESRD on dialysis: Code(s): N18.6 - End stage renal disease; Z99.2 - Dependence on renal dialysis Status: Acute Assessment and Plan: Patient has dialysis on Wednesday and nephrology has been consulted. (3) Hypertension: Code(s): I10 - Essential (primary) hypertension Status: Chronic Assessment and Plan: Continue with home medications. nifedipine and carvedilol. (4) CHF (congestive heart failure): Code(s): I50.9 - Heart failure, unspecified Status: Chronic Assessment and Plan: Most likely diastolic stable continue home medication Continue with Coreg. I did order an echo as well. (5) DM2 (diabetes mellitus, type 2): Code(s): E11.9 - Type 2 diabetes mellitus without complications Status: Chronic Assessment and Plan: Accu-Cheks AC and HS. Sliding scale insulin. (6) V-tach: Code(s): I47.2 - Ventricular tachycardia Status: Acute Assessment and Plan: Nonsustained episodes of V-tach 16 beats continue Coreg replace potassium and magnesium echo was reviewed Subjective Date/time seen: 02/01/21 09:22 Interval history: Patient seen and examined Patient presented to the hospital with increased discharge from skin wound where she was found to have sepsis secondary to abscess patient has history of hydradenitis suppurativa Patient feels better today Had episode of 60 beat of V-tach overnight resumed Coreg replace magnesium and potassium Patient denies fever headache chest pain shortness of breath I am seeing the patient for sepsis Exam Narrative: Alert Chest no wheeze crackles Abdomen nontender nondistended CVS S1 + S2 Skin of the buttock bilateral area of inflammation and oozing of scan consistent with cellulitis and hidradenitis suppurative and abscess Lower extremity edema Objective Data Vital Signs Vital Signs: Vital Signs - 24 hr 01/31/21 09:28 01/31/21 09:45 01/31/21 10:00 Temperature Pulse Rate 73 75 75 Respiratory Rate Blood Pressure 186/101 H 185/95 H 189/98 H Pulse Oximetry 01/31/21 10:15 01/31/21 10:30 01/31/21 10:45 Temperature Pulse Rate 97 77 79 Respiratory Rate Blood Pressure 150/81 H 183/99 H 167/41 H Pulse Oximetry 01/31/21 11:00 01/31/21 11:15 01/31/21 11:30 Temperature Pulse Rate 77 78 78 Respiratory Rate Blood Pressure 191/91 H 180/91 H 183/91 H Pulse Oximetry 01/31/21 11:45 01/31/21 12:00 01/31/21 12:15 Temperature Pulse Rate 78 78 81 Respiratory Rate Blood Pressure 191/98 H 190/92 H 194/91 H Pulse Oximetry 01/31/21 12:33 01/31/21 12:45 01/31/21 13:30 Temperature 98.6 F Pulse Rate 80 80 80 Respiratory Rate 16 16 Blood Pressure 186/91 H 187/93 H 187/93 H Pulse Oximetry 01/31/21 14:45 01/31/21 16:00 01/31/21 17:29 Temperature 98.1 F Pulse Rate 83 82 87 Respiratory Rate 16 Blood Pressure 189/79 H 156/66 H Pulse Oximetry 100 01/31/21 20:00 01/31/21 22:00 02/01/21 00:00 Temperature 98.3 F Pulse Rate 76 72 78 Respiratory Rate 16 Blood Pressure 157/59 H Pulse Oximetry 100 02/01/21 04:00 02/01/21 06:00 Temperature 97.7 F Pulse Rate 80 76 Respiratory Rate 16 Blood Pressure 155/69 H Pulse Oximetry 96 Intake/Output Intake/Output: Intake & Output 01/29/21 01/30/21 01/31/21 02/01/21 23:59 23:59 23:59 23:59 Intake Total 600 690 900 Output Total 1000 Balance 600 -310 900 Meds/Results Medications: Active Medications Generic Na
[2021-02-01] MEDS: carvediloL 25 MG TABLET PO ×2 (09:27→19:54)
[2021-02-01] MEDS: ASPIRIN 81 MG ENTERIC TABLET PO (09:27)
[2021-02-01] MEDS: DOXYCYCLINE HYCLATE 100 MG TABLET PO (09:27)
[2021-02-01] MEDS: lisinopriL 10 MG TABLET PO (09:27)
[2021-02-01] MEDS: PANTOPRAZOLE 40 MG TABLET PO (09:27)
[2021-02-01] MEDS: ATORVASTATIN 20 MG TABLET PO (09:27)
[2021-02-01] MEDS: NIFEdipine 30 MG TAB.ER.24 60 MG PO (09:27)
[2021-02-01 09:33] LABS: Basophils Absolute Auto 0.1 K/mm3 (0.0-0.1); Basophils Percent Auto 0.3 % (0.2-1.2); Eosinophils Absolute Auto 0.3 K/mm3 (0-0.3); Eosinophils Percent Auto 1.3 % (0-4.4); Hematocrit 30.2 % (37.0-47.0); Hemoglobin 9.4 g/dL (12.0-15.0); Immature Granulocyte Absolute 0.16 K/mm3 (0.00-0.031); Immature Granulocyte Percent A 0.6 % (0-0.5); Lymphocytes Absolute Auto 2.47 K/mm3 (0.9-3.2); Lymphocytes Percent Auto 9.3 % (18.3-44.2); Mean Corpuscular HGB Conc 31.1 g/dl (32-36); Mean Corpuscular Hemoglobin 30.1 pg (26-34); Mean Corpuscular Volume 96.8 fl (80-100); Mean Platelet Volume 10.5 fl (7.4-10.4); Monocytes Absolute Auto 1.2 K/mm3 (0.1-0.6); Monocytes Percent Auto 4.4 % (2.6-8.5); Neutrophils Absolute Auto 22.4 K/mm3 (1.3-6.7); Neutrophils Percent Auto 84.1 % (45.5-73.1); Platelet Count Result 316 k/mm3 (150-375); Red Blood Count 3.12 M/mm3 (4.2-5.4); White Blood Count 26.6 K/mm3 (4.5-10.0)
[2021-02-01 09:45] LABS: Alanine Aminotransferase 10 U/L (4-35); Albumin Level 2.7 g/dL (3.5-5.1); Alkaline Phosphatase 164 U/L (38-126); Anion Gap 8 mmol/L (8-16); Aspartate Amino Transferase 18 U/L (14-36); Bilirubin,Total 0.5 mg/dL (0.2-1.3); Blood Urea Nitrogen 17 mg/dL (7-17); Calcium 8.5 mg/dL (8.4-10.2); Carbon Dioxide 27 mmol/L (22-30); Chloride 97 mmol/L (98-107); Estimated CRCL calculation 17 ml/min; Estimated Glomerular Filt Rate 15; Glucose 152 mg/dL (65-110); Magnesium 2.4 mg/dL (1.6-2.3); Sodium 132 mmol/L (137-145)
--- NOTE | 2021-02-01 11:35 | PM.CNNEP ---
Assessment and Plan Assessment and plan (1) End stage renal disease: Code(s): N18.6 - End stage renal disease Status: Chronic Assessment and Plan: HD yesterday and continue M/W/F schedule while hospitalized follow electrolytes, volume status, and clearance (2) Cellulitis and abscess of buttock: Code(s): L02.31 - Cutaneous abscess of buttock; L03.317 - Cellulitis of buttock Status: Acute Assessment and Plan: as demonstrated by physical exam and imaging studies appropriate cultures obtained continue IV antibiotic therapy General Surgery consulted -- further intervention needed (I & D?) (3) Chest pain: Code(s): R07.9 - Chest pain, unspecified Status: Acute Assessment and Plan: Cardiology following follow telemetry await review of old records continue aggressive medical mangement (multiple risk factors as already noted) (4) Hypertension: Code(s): I10 - Essential (primary) hypertension Status: Chronic Assessment and Plan: better at this time resumed home medications - lisinopril just added follow trend of hemodynamics may need further adjustment to medications (5) DM2 (diabetes mellitus, type 2): Code(s): E11.9 - Type 2 diabetes mellitus without complications Status: Chronic Assessment and Plan: follow accuchecks glycemic control Will continue to follow. History of Present Illness Reason for Consult Consult date: 02/01/21 Reason for consult: end stage renal disease Chief Complaint Chief complaint: Buttock Cellulitis,Hypertension,Chest Pain,ESRD on History of Present Illness Narrative: The patient is a 55-year-old female with a past medical history as outlined below who presented to [facility] Emergency room for further evaluation of a right buttocks wound. The patient states that she had her last dialysis treatment on Wednesday and since that time, she has not felt very well. Further complicating matters is that she is aware of a chronic right buttocks wound that has had ongoing drainage and an associated smell. Other associated symptoms include intermittent abdominal pain as well as left lower chest pain since the evening before admission as well. She reports some mild nausea and vomiting and associated shortness of breath but states the chest pain seems to be doing somewhat better since her admission to the hospital. Given these constellation of symptoms, she presented to the emergency room for further evaluation Workup and evaluation emergency room demonstrated the patient to be hemodynamically stable (actually, she was quite hypertensive with systolic BP greater than 200), and in no otherwise apparent distress. Routine blood test demonstrated labs consistent with her known history of end-stage renal disease but she did have a significant leukocytosis. Her physical exam was noteworthy for what appeared to be a right buttock cellulitis with possible underlying abscess given the persistent drainage that was quite apparent. A CT scan of the abdomen pelvis was done which demonstrated extensive subcutaneous fatty infiltration and bilateral gluteal skin thickening extending in the perirectal space consistent with cellulitis with no overt drainable fluid collection/abscess. Appropriate blood cultures as well as wound cultures were obtained and she was started on broad-spectrum IV antibiotic therapy with subsequent admission to the hospital. Since her admission, she received dialysis yesterday to maintain her Wednesday, Wednesday, Wednesday dialysis schedule and tolerated this intervention reasonably well. She has been tolerating broad-spectrum IV antibiotic therapy as well and pain control has been acceptable. Renal consultation was requested due to her end-stage renal disease. The patient normally dialyzes on a Wednesday, Wednesday, Wednesday dialysis schedule under the care of Dr. Lazo at [facility] Tashi Edward
[2021-02-01 12:31] LABS: Glucose Point of Care 116 mg/dl (65-105)
[2021-02-01] MEDS: ALPRAZolam (*CRX) 0.25 MG TABLET PO (13:18)
--- NOTE | 2021-02-01 14:36 | W.PM.PROC2 ---
Procedure Note - Detailed Date of Procedure 02/01/21 Pre-op Diagnosis poor IV access, sepsis Post-op Diagnosis same Procedure Performed placement of RIJ TLC Surgeon Deepika Montoya MD Anesthesia local Indications 55 y/o F c multiple med issues including ESRD presenting c sepsis requiring IV abx. Pt c poor IV access and needs continuing IV abx. Findings 1st stick RIJ under US Description of Procedure The patient was placed in the supine position. A time-out was then done to verify the patient's identity, as well as the procedure being performed. The patient was then prepped and draped in normal sterile fashion. Using the ultrasound, I was able to identify the right internal jugular vein. I then localized the skin over the vein in the right neck. I then used an 18 gauge needle to gain access into the right internal jugular vein, again using ultrasound guidance. I then fed the guidewire into the right internal jugular vein under ultrasonic guidance. Once this was noted to be in good position, I removed the 18 gauge needle just leaving the guidewire in the vein. I then made the needlestick site larger by using a 11 blade scalpel. I then dilated the vein using the dilator. I then placed the previously flushed catheter over the guidewire into the right internal jugular vein. The catheter was noted to go in easily and I placed this to about 15 cm. I then removed the guidewire, just leaving the catheter in the vein. I was able to easily draw and flush from all 3 ports. I then secured the catheter to the right neck using interrupted 2-0 silk sutures. Sterile dressing including Biopatch was placed. The patient tolerated the procedure well. Implants RIJ TLC Estimated Blood Loss 5 Drains No Packing No Pathology none sent Complications No immediate complications Condition stable Disposition floor
--- NOTE | 2021-02-01 14:44 | PM.CNGS ---
Assessment and Plan Assessment and plan (1) Cellulitis and abscess of buttock: Code(s): L02.31 - Cutaneous abscess of buttock; L03.317 - Cellulitis of buttock Status: Acute Assessment and Plan: cont abx, serial exams, no obvious drainable collections on exam or CT (2) Poor intravenous access: Code(s): Z78.9 - Other specified health status Status: Acute Assessment and Plan: will place TLC at bedside History of Present Illness Consult details Consult date: 02/01/21 Reason for consult: wound care Requesting physician: Clifford Choi MD Narrative: The patient is a 55-year-old female with multiple medical issues, including end-stage renal disease, presenting with sepsis. The patient reports that she has bilateral gluteal swelling, drainage, pain over at least the last year. The patient reports that she has not felt over the last few weeks, but acutely got worse over the last few days. Workup in the emergency department, including imaging, was significant for sepsis, bilateral gluteal swelling, cellulitis. The patient also has very poor IV access and we are consulted to address that as well. Review of Systems Constitutional: Constitutional: Denies anorexia, Reports body ache(s), Reports chills, Reports difficulty sleeping, Reports fatigue, Denies fever(s), Denies increased appetite, Reports lethargy, Reports malaise, Denies night sweats, Reports poor appetite, Reports weakness, Reports weight gain and Denies weight loss Eyes: Eyes: Reports no additional eye complaints ENT: Reports system reviewed and no additional complaints, except as documented Cardiovascular: Cardiovascular: Reports chest pain, Denies chest pain at rest, Reports chest pain with activity, Reports edema, Reports leg edema and Reports dyspnea on exertion Respiratory: Respiratory: Reports dyspnea, Reports dyspnea on exertion and Reports wheezing Gastrointestinal: Gastrointestinal: Reports abdominal pain, Reports bloating, Denies change in bowel habits, Denies change in stool character, Denies constipation, Denies GI cramping, Reports loose stools, Denies nausea and Denies vomiting Genitourinary: Genitourinary: Reports no additional female genitourinary complaints Musculoskeletal: Musculoskeletal: Reports no additional musculoskeletal complaints Integumentary/Breasts: Skin/Breast: Reports system reviewed and no additional complaints, except as docu Neurologic: Reports system reviewed and no additional complaints, except as documented Psychiatric: Psychiatric: Reports no additional psychiatric complaints Endocrine: Endocrine: Reports no additional endocrine complaints Hematologic/Lymphatic: Hematologic/Lymphatic: Reports no additional hematologic/lymphatic complaints Allergic/Immunologic: Allergic/Immunologic: Reports no additional allergic/immunologic complaints [facility] Past Medical History Medical History AV fistula Left forearm CHF (congestive heart failure) Coronary artery disease DM2 (diabetes mellitus, type 2) ESRD on dialysis Hypertension Surgical History Surgical History History of coronary artery stent placement X2 S/P dialysis catheter insertion AV fistula left forearm Social History Social History Smoking status: Never smoker Spiritual care concerns: No Comments FH - pt denies any h/o CRC, IBD Meds Home Medications and Allergies Home Medications Medication Instructions Recorded Confirmed Type B complex with C 20-folic acid 1 cap PO DAILY 01/30/21 01/31/21 History [Triphrocaps] atorvastatin 10 mg PO HS 01/30/21 01/31/21 History carvedilol 25 mg PO BID 01/30/21 01/31/21 History cephalexin 500 mg PO Q12H 01/30/21 01/31/21 History doxycycline hyclate 100 mg PO BID 01/30/21 01/31/21 History gabapentin 100 mg PO HS 01/30/21
[2021-02-01 16:45] LABS: Glucose Point of Care 129 mg/dl (65-105)
[2021-02-01] MEDS: ATORVASTATIN 10 MG TABLET PO (19:55)
[2021-02-01] MEDS: GABAPENTIN 100 MG CAPSULE PO (19:55)
[2021-02-01] MEDS: HEPARIN SODIUM 5,000 UNITS/ML VIAL 5000 UNITS SUB-Q (19:55)
--- NOTE | 2021-02-01 19:55 | PM.PNCARD ---
Progress Note: A&P Assessment and Plan (1) Chest pain: Code(s): R07.9 - Chest pain, unspecified Status: Acute Assessment and Plan: Resolved, atypical, negative serial cardiac enzymes. Although she has a history of CAD details in this regard are not known. She reports a prior history of stents but has not been maintained on aspirin for unclear reasons ; aspirin resumed. Most likely secondary to hypertensive urgency presentation. Continue to monitor for recurrence. Continue medical therapy at this time with nifedipine, aspirin, atorvastatin. Will discuss noninvasive ischemic evaluation as an outpatient as appropriate after review of prior records. Will sign off and arrange for outpatient follow-up. (2) Hypertensive urgency: Code(s): I16.0 - Hypertensive urgency Status: Acute Assessment and Plan: Admitted with hypertensive urgency. Added lisinopril 10 mg daily. Blood pressure much better continue lisinopril, carvedilol, nifedipine (3) Coronary artery disease: Code(s): I25.10 - Atherosclerotic heart disease of [place] coronary artery without angina pectoris Status: Acute Assessment and Plan: Reports prior history of stent implantation. Added aspirin 81 mg daily. Continue atorvastatin. LDL was 38 this admisison at goal. Obtain prior records from [place]. Further recommendations after review of these records. Patient may follow up with this as an outpatient in the office to be seen within 4 weeks. (4) Cellulitis and abscess of buttock: Code(s): L02.31 - Cutaneous abscess of buttock; L03.317 - Cellulitis of buttock Status: Acute Assessment and Plan: Her hospitalist service. (5) CHF (congestive heart failure): Code(s): I50.9 - Heart failure, unspecified Status: Chronic Assessment and Plan: Patient is not in acute decompensated heart failure at this time. Volume management per hemodialysis. (6) ESRD on dialysis: Code(s): N18.6 - End stage renal disease; Z99.2 - Dependence on renal dialysis Status: Acute Assessment and Plan: Per nephrology. Patient feeling much better after hemodialysis. Subjective Date/time seen: 02/01/21 19:55 Follow-up for chest pain, hypertensive urgency, history of CAD and stent. Also has cellulitis of buttock and on dialysis for end-stage renal disease. Date of service 02/01/2021: Doing better, no more chest pain. No shortness of breath. Had a triple-lumen central line placed for IV antibiotics. Blood pressure doing much better. Remains on room air. Had dialysis yesterday. Echo showed EF of 55%, diastolic dysfunction. Review of Systems Constitutional: Constitutional: Reports no additional constitutional complaints ENT: Denies epistaxis Cardiovascular: Cardiovascular: Denies chest pain, Denies pedal edema and Denies leg edema Respiratory: Respiratory: Denies dyspnea Gastrointestinal: Gastrointestinal: Reports abdominal pain ( Some cramping, chronic) and Denies diarrhea Genitourinary: Genitourinary: Denies hematuria Musculoskeletal: Musculoskeletal: Reports myalgias ( buttock discomfort due to cellulitis) Integumentary/Breasts: Skin/Breast: Reports erythema ( cellulitis) Neurologic: Reports system reviewed and no additional complaints, except as documented Psychiatric: Psychiatric: Reports no additional psychiatric complaints Objective Data Vital Signs Vital Signs: Vital Signs - 24 hr 01/31/21 20:00 01/31/21 22:00 02/01/21 00:00 Temperature 98.3 F Pulse Rate 76 72 78 Respiratory Rate 16 Blood Pressure 157/59 H Pulse Oximetry 100 02/01/21 04:00 02/01/21 06:00 02/01/21 08:00 Temperature 97.7 F Pulse Rate 80 76 79 Respiratory Rate 16 Blood Pressure 155/69 H Pulse Oximetry 96 02/01/21 09:27 02/01/21 12:00 02/01/21 14:00 Temperature 96.7 F L Pulse Rate 76 69 65 Respiratory Rate 20 Bl
[2021-02-01] MEDS: CENTRAL LINE FLUSH 10 ML IV PUSH (19:56)
[2021-02-01 21:21] LABS: Glucose Point of Care 173 mg/dl (65-105)
[2021-02-02] VITALS (11 sets, daily range): BP systolic 127–145; BP diastolic 58–66; PULSE 66–95; RESP 16–18; TEMP 36.4–36.6; O2SAT 97–100
[2021-02-02] MEDS: ACETAMINOPHEN 325 MG TABLET 650 MG PO ×3 (02:25→17:12)
[2021-02-02] MEDS: CENTRAL LINE FLUSH 10 ML IV PUSH ×3 (05:59→21:11)
[2021-02-02] MEDS: CENTRAL LINE FLUSH 20 ML IV PUSH (05:59)
[2021-02-02 06:10] LABS: Basophils Absolute Auto 0.1 K/mm3 (0.0-0.1); Basophils Percent Auto 0.3 % (0.2-1.2); Eosinophils Absolute Auto 0.4 K/mm3 (0-0.3); Eosinophils Percent Auto 1.7 % (0-4.4); Hematocrit 30.6 % (37.0-47.0); Hemoglobin 9.6 g/dL (12.0-15.0); Immature Granulocyte Absolute 0.14 K/mm3 (0.00-0.031); Immature Granulocyte Percent A 0.6 % (0-0.5); Lymphocytes Absolute Auto 2.52 K/mm3 (0.9-3.2); Lymphocytes Percent Auto 10.9 % (18.3-44.2); Mean Corpuscular HGB Conc 31.4 g/dl (32-36); Mean Corpuscular Hemoglobin 30.5 pg (26-34); Mean Corpuscular Volume 97.1 fl (80-100); Mean Platelet Volume 9.6 fl (7.4-10.4); Monocytes Percent Auto 4.1 % (2.6-8.5); Neutrophils Percent Auto 82.4 % (45.5-73.1); Platelet Count Result 315 k/mm3 (150-375); Red Blood Count 3.15 M/mm3 (4.2-5.4); Red Cell Distribution Width 15.9 % (11.5-14.5); White Blood Count 23.1 K/mm3 (4.5-10.0)
[2021-02-02 06:26] LABS: Alanine Aminotransferase 10 U/L (4-35); Albumin Level 2.8 g/dL (3.5-5.1); Alkaline Phosphatase 171 U/L (38-126); Anion Gap 6 mmol/L (8-16); Aspartate Amino Transferase 17 U/L (14-36); Bilirubin,Total 0.5 mg/dL (0.2-1.3); Blood Urea Nitrogen 24 mg/dL (7-17); Calcium 8.7 mg/dL (8.4-10.2); Carbon Dioxide 28 mmol/L (22-30); Chloride 96 mmol/L (98-107); Estimated CRCL calculation 12 ml/min; Estimated Glomerular Filt Rate 10; Glucose 168 mg/dL (65-110); Magnesium 2.2 mg/dL (1.6-2.3); Potassium 4.1 mmol/L (3.4-5.0); Sodium 130 mmol/L (137-145)
[2021-02-02 08:05] LABS: Glucose Point of Care 135 mg/dl (65-105)
--- NOTE | 2021-02-02 08:44 | PM.IMPN ---
Progress Note: A&P Assessment and Plan (1) Cellulitis and abscess of buttock: Code(s): L02.31 - Cutaneous abscess of buttock; L03.317 - Cellulitis of buttock Status: Acute Assessment and Plan: As per diabetic cellulitis antibiotic stewardship the patient was started on Primaxin and vancomycin. Wound and blood cultures are pending. Surgery consulted patient has a history of hidradenitis suppurativa follow wound culture Leukocytosis improved. (2) ESRD on dialysis: Code(s): N18.6 - End stage renal disease; Z99.2 - Dependence on renal dialysis Status: Acute Assessment and Plan: Patient has dialysis on Wednesday and nephrology has been consulted. (3) Hypertension: Code(s): I10 - Essential (primary) hypertension Status: Chronic Assessment and Plan: On admission patient has hypertensive urgency resolved Continue with home medications. nifedipine and carvedilol. (4) CHF (congestive heart failure): Code(s): I50.9 - Heart failure, unspecified Status: Chronic Assessment and Plan: Most likely diastolic stable continue home medication Continue with Coreg. Cardiology recommendation appreciated stable. (5) DM2 (diabetes mellitus, type 2): Code(s): E11.9 - Type 2 diabetes mellitus without complications Status: Chronic Assessment and Plan: Accu-Cheks AC and HS. Sliding scale insulin. (6) V-tach: Code(s): I47.2 - Ventricular tachycardia Status: Acute Assessment and Plan: Nonsustained episodes of V-tach 16 beats continue Coreg replace potassium and magnesium echo was reviewed Subjective Date/time seen: 02/02/21 08:44 Interval history: Patient seen and examined Patient presented to the hospital with increased discharge from skin wound where she was found to have sepsis secondary to abscess patient has history of hydradenitis suppurativa Patient feels better today Had episode of 16 beat of V-tach on 01/31/2021 resumed Coreg replace magnesium and potassium resolved Cardiology signed off on 02/01/2021 plan for noninvasive cardiac workup as outpatient Surgery following poor peripheral access addressed by surgery line was placed by surgery Patient denies fever headache chest pain shortness of breath I am seeing the patient for sepsis Exam Narrative: Alert Chest no wheeze crackles Abdomen nontender nondistended CVS S1 + S2 Skin of the buttock bilateral area of inflammation and oozing of scan consistent with cellulitis and hidradenitis suppurative and abscess Lower extremity edema Objective Data Vital Signs Vital Signs: Vital Signs - 24 hr 02/01/21 09:27 02/01/21 12:00 02/01/21 14:00 Temperature 96.7 F L Pulse Rate 76 69 65 Respiratory Rate 20 Blood Pressure 125/54 L Pulse Oximetry 100 02/01/21 16:00 02/01/21 19:50 02/01/21 19:54 Temperature 97.2 F L Pulse Rate 83 88 88 Respiratory Rate 17 Blood Pressure 117/58 L Pulse Oximetry 100 02/01/21 20:00 02/02/21 00:00 02/02/21 03:41 Temperature 97.8 F Pulse Rate 73 71 66 Respiratory Rate 17 Blood Pressure 127/58 L Pulse Oximetry 97 02/02/21 04:00 Temperature Pulse Rate 83 Respiratory Rate Blood Pressure Pulse Oximetry Intake/Output Intake/Output: Intake & Output 01/30/21 01/31/21 02/01/21 02/02/21 23:59 23:59 23:59 23:59 Intake Total 624 086 7004 340 Output Total 1000 Balance 600 -310 1660 340 Meds/Results Medications: Active Medications Generic Name Dose Route Start Last Admin Trade Name Freq PRN Reason Stop Dose Admin Acetaminophen 650 mg 01/31/21 03:42 02/02/21 02:25 Acetaminophen 325 Mg Tablet PO 650 mg Q6H PRN Administration Mild Pain (1-3) or Fever Alprazolam 0.25 mg 02/01/21 13:03 02/01/21 13:18 Alprazolam (*Crx) 0.25 Mg Tablet PO 0.25 mg BID PRN Administration Anxiety Aspirin 81 mg 02/01/21 09:00 02/01/21 09:27 Aspirin 81 Mg Enteric Tabl
--- NOTE | 2021-02-02 09:27 | PM.PNGS ---
Progress Note: A&P Assessment and Plan (1) Cellulitis and abscess of buttock: Code(s): L02.31 - Cutaneous abscess of buttock; L03.317 - Cellulitis of buttock Status: Acute Assessment and Plan: slowly improving c abx, cont local wound care Subjective Subjective Date/Time Seen: 02/02/21 09:27 feels much better today, reports decreased gluteal pain and drainage Review of Systems Review of Systems: All systems reviewed & are unremarkable except as noted in HPI and below Exam Const: General: cooperative, comfortable and no acute distress Neck: Neck: normal visual inspection and full ROM Other: RIJ TLC - C/D/I Resp: Effort & Inspection: normal respiratory effort Auscultation: clear to auscultation bilaterally Cardio: Rate: regular rate Rhythm: regular rhythm GI: Inspection: normal to inspection GI Palp: No abdominal tenderness and Yes Soft to palpation Skin: Other: decreased gluteal induration, mild drainage Objective Data Vital Signs Vital Signs: Vital Signs - 24 hr 02/01/21 12:00 02/01/21 14:00 02/01/21 16:00 Temperature 35.9 C L Pulse Rate 69 65 83 Respiratory Rate 20 Blood Pressure 125/54 L Pulse Oximetry 100 02/01/21 19:50 02/01/21 19:54 02/01/21 20:00 Temperature 36.2 C L Pulse Rate 88 88 73 Respiratory Rate 17 Blood Pressure 117/58 L Pulse Oximetry 100 02/02/21 00:00 02/02/21 03:41 02/02/21 04:00 Temperature 36.6 C Pulse Rate 71 66 83 Respiratory Rate 17 Blood Pressure 127/58 L Pulse Oximetry 97 Intake/Output Intake/Output: Intake & Output 01/30/21 01/31/21 02/01/21 02/02/21 23:59 23:59 23:59 23:59 Intake Total 485 323 5203 460 Output Total 1000 Balance 600 -310 1660 460 Meds/Results Medications: Active Medications Generic Name Dose Route Start Last Admin Trade Name Freq PRN Reason Stop Dose Admin Acetaminophen 650 mg 01/31/21 03:42 02/02/21 02:25 Acetaminophen 325 Mg Tablet PO 650 mg Q6H PRN Administration Mild Pain (1-3) or Fever Alprazolam 0.25 mg 02/01/21 13:03 02/01/21 13:18 Alprazolam (*Crx) 0.25 Mg Tablet PO 0.25 mg BID PRN Administration Anxiety Aspirin 81 mg 02/01/21 09:00 02/01/21 09:27 Aspirin 81 Mg Enteric Tablet PO 81 mg QAM ROMULO Administration Atorvastatin Calcium 20 mg 02/01/21 09:00 02/01/21 09:27 Atorvastatin 20 Mg Tablet PO 20 mg DAILY ROMULO Administration Atorvastatin Calcium 10 mg 02/01/21 21:00 02/01/21 19:55 Atorvastatin 10 Mg Tablet PO 10 mg HS ROMULO Administration Carvedilol 25 mg 01/31/21 11:50 02/01/21 19:54 Carvedilol 25 Mg Tablet PO 25 mg Q12HR ROMULO Administration Dextrose 12.5 gm 01/31/21 00:00 Dextrose 50% 25 Gm/50 Ml Syringe IV PUSH PRN PRN Hypoglycemia Protocol Doxycycline Hyclate 100 mg 01/31/21 09:00 02/01/21 09:27 Doxycycline Hyclate 100 Mg Tablet PO 03/03/21 08:59 100 mg DAILY ROMULO Administration Gabapentin 100 mg 02/01/21 21:00 02/01/21 19:55 Gabapentin 100 Mg Capsule PO 100 mg HS ROMULO Administration Glucagon 1 mg 01/31/21 00:00 Glucagon For Inj 1 Mg Vial IM PRN PRN Hypoglycemia Protocol Glucose 15 gm 01/31/21 00:00 Glucose Oral Gel 15 Gm Of Glucse In 37.5 Gm Tube PO PRN PRN Hypoglycemia Protocol Heparin Sodium (Porcine) 5,000 units 02/01/21 21:00 02/01/21 19:55 Heparin Sodium 5,000 Units/Ml Vial SUB-Q 5,000 units Q12HR ROMULO Administration Dextrose 1,000 mls @ 100 mls/hr 01/31/21 00:00 Dextrose 5% 1,000 Ml IVPB PRN PRN Hypoglycemia Protocol Albumin Human 50 mls @ 999 mls/hr 01/31/21 01:59 Albutein IVPB 03/02/21 01:58 Q10M PRN HYPOTENSION Vancomycin HCl 1,500 mg in 500 mls @ 333.333 mls/hr 01/31/21 02:31 Vancomycin 1,500 Mg/D5w 500 Ml IVPB PRN PRN Kinetics Consult Imipenem/Cilastatin Sodium 200 100 mls @ 300 mls/hr 02/01/21 21:00 02/02/21 02:13 mg/ So
[2021-02-02] MEDS: DOXYCYCLINE HYCLATE 100 MG TABLET PO (09:55)
[2021-02-02] MEDS: PANTOPRAZOLE 40 MG TABLET PO (09:55)
[2021-02-02] MEDS: ASPIRIN 81 MG ENTERIC TABLET PO (09:55)
[2021-02-02] MEDS: ATORVASTATIN 20 MG TABLET PO (09:55)
[2021-02-02] MEDS: VITAMIN B CMPLX/VIT C/FOLIC AC 1 CAPSULE 1 CAP PO (09:55)
[2021-02-02] MEDS: NIFEdipine 30 MG TAB.ER.24 60 MG PO (09:55)
[2021-02-02] MEDS: lisinopriL 10 MG TABLET PO (09:55)
[2021-02-02] MEDS: carvediloL 25 MG TABLET PO ×2 (09:55→21:09)
[2021-02-02] MEDS: HEPARIN SODIUM 5,000 UNITS/ML VIAL 5000 UNITS SUB-Q ×2 (09:56→21:10)
--- NOTE | 2021-02-02 11:36 | PM.PNNEP ---
Progress Note: A&P Assessment and Plan (1) End stage renal disease: Code(s): N18.6 - End stage renal disease Status: Chronic Assessment and Plan: HD tomorrow and continue M/W/F schedule while hospitalized follow electrolytes, volume status, and clearance (2) Cellulitis and abscess of buttock: Code(s): L02.31 - Cutaneous abscess of buttock; L03.317 - Cellulitis of buttock Status: Acute Assessment and Plan: as demonstrated by physical exam and imaging studies appropriate cultures obtained continue IV antibiotic therapy General Surgery following (3) Chest pain: Code(s): R07.9 - Chest pain, unspecified Status: Acute Assessment and Plan: Cardiology following follow telemetry continue aggressive medical mangement (multiple risk factors as already noted) (4) Hypertension: Code(s): I10 - Essential (primary) hypertension Status: Chronic Assessment and Plan: better at this time resumed home medications and lisinopril added follow trend of hemodynamics (5) DM2 (diabetes mellitus, type 2): Code(s): E11.9 - Type 2 diabetes mellitus without complications Status: Chronic Assessment and Plan: follow accuchecks on SSI Will continue to follow. Subjective Date/time seen: 02/02/21 11:36 Seems to be doing reasonably well at the time of my visit; s/p central line placement yesterday due to poor IV access and need for antibiotics - tolerated procedure well; noted decreased pain/drainage from buttock area; no other issues/events overnight or earlier this morning. Exam Narrative: GENERAL APPEARANCE: well developed well nourished AA female in no acute distress HEENT: normocephalic, atraumatic, normal conjunctiva and sclera, nares patient NECK: no lymphadenopathy, thyromegaly, or JVD MOUTH: normal lips, teeth, and gums CARDIOVASCULAR: RRR, normal S1 and S2, no rub detected RESPIRATORY: clear to auscultation bilaterally ABDOMEN: soft, nontender, nondistended, positive bowel sounds present EXTREMITIES: no evidence of cyanosis, clubbing, trace edema NEUROLOGICAL: alert and oriented x 3; CN II - XII intact bilaterally; no focal deficits noted SKIN: erythema/drainage noted from right buttock area Objective Data Vital Signs Vital Signs: Vital Signs Temp Pulse Resp BP Pulse Ox 02/02/21 09:55 76 02/02/21 08:00 84 12/19/21 04:00 83 02/02/21 03:41 36.6 C 66 17 127/58 L 97 02/02/21 00:00 71 02/01/21 20:00 73 02/01/21 19:54 88 02/01/21 19:50 36.2 C L 88 17 117/58 L 100 02/01/21 16:00 83 Intake/Output Intake/Output: Intake & Output 01/30/21 01/31/21 02/01/21 02/02/21 23:59 23:59 23:59 23:59 Intake Total 449 257 6253 560 Output Total 1000 Balance 600 -310 1660 560 Meds/Results Medications: Active Medications Generic Name Dose Route Start Last Admin Trade Name Freq PRN Reason Stop Dose Admin Acetaminophen 650 mg 01/31/21 03:42 02/02/21 11:14 Acetaminophen 325 Mg Tablet PO 650 mg Q6H PRN Administration Mild Pain (1-3) or Fever Alprazolam 0.25 mg 02/01/21 13:03 02/01/21 13:18 Alprazolam (*Crx) 0.25 Mg Tablet PO 0.25 mg BID PRN Administration Anxiety Aspirin 81 mg 02/01/21 09:00 02/02/21 09:55 Aspirin 81 Mg Enteric Tablet PO 81 mg QAM ROMULO Administration Atorvastatin Calcium 20 mg 02/01/21 09:00 02/02/21 09:55 Atorvastatin 20 Mg Tablet PO 20 mg DAILY ROMULO Administration Atorvastatin Calcium 10 mg 02/01/21 21:00 02/01/21 19:55 Atorvastatin 10 Mg Tablet PO 10 mg HS ROMULO Administration Carvedilol 25 mg 01/31/21 11:50 02/02/21 09:55 Carvedilol 25 Mg Tablet PO 25 mg Q12HR ROMULO Administration Dextrose 12.5 gm 01/31/21 00:00 Dextrose 50% 25 Gm/50 Ml Syringe IV PUSH PRN PRN Hypoglycemia Protocol Doxycycline Hyclate 100 mg 01/31/21 09:00 02/02/21 09:55
[2021-02-02 12:02] LABS: Glucose Point of Care 140 mg/dl (65-105)
[2021-02-02 17:41] LABS: Glucose Point of Care 134 mg/dl (65-105)
[2021-02-02] MEDS: ATORVASTATIN 10 MG TABLET PO (21:09)
[2021-02-02] MEDS: GABAPENTIN 100 MG CAPSULE PO (21:09)
[2021-02-02 21:46] LABS: Glucose Point of Care 154 mg/dl (65-105)
[2021-02-02] MEDS: traMADol HCL (*CRX) 25 MG TABLET PO (21:48)
[2021-02-03] VITALS (17 sets, daily range): BP systolic 104–151; BP diastolic 53–76; PULSE 70–100; RESP 16–18; TEMP 36.4–36.7; O2SAT 95–100
[2021-02-03] MEDS: diphenhydrAMINE HCl CAP 25 MG CAPSULE 50 MG PO (03:24)
[2021-02-03] MEDS: CENTRAL LINE FLUSH 10 ML IV PUSH ×3 (04:39→22:15)
[2021-02-03] MEDS: CENTRAL LINE FLUSH 20 ML IV PUSH (04:39)
[2021-02-03 04:56] LABS: Basophils Absolute Auto 0.1 K/mm3 (0.0-0.1); Basophils Percent Auto 0.3 % (0.2-1.2); Eosinophils Absolute Auto 0.4 K/mm3 (0-0.3); Eosinophils Percent Auto 1.5 % (0-4.4); Hemoglobin 8.7 g/dL (12.0-15.0); Immature Granulocyte Absolute 0.16 K/mm3 (0.00-0.031); Immature Granulocyte Percent A 0.7 % (0-0.5); Lymphocytes Absolute Auto 2.89 K/mm3 (0.9-3.2); Mean Corpuscular HGB Conc 31.1 g/dl (32-36); Mean Corpuscular Hemoglobin 30.3 pg (26-34); Mean Corpuscular Volume 97.6 fl (80-100); Mean Platelet Volume 10.1 fl (7.4-10.4); Monocytes Absolute Auto 1.2 K/mm3 (0.1-0.6); Monocytes Percent Auto 4.8 % (2.6-8.5); Neutrophils Absolute Auto 19.5 K/mm3 (1.3-6.7); Neutrophils Percent Auto 80.7 % (45.5-73.1); Platelet Count Result 325 k/mm3 (150-375); Red Blood Count 2.87 M/mm3 (4.2-5.4); Red Cell Distribution Width 16.1 % (11.5-14.5); White Blood Count 24.2 K/mm3 (4.5-10.0)
[2021-02-03 05:17] LABS: Alanine Aminotransferase 9 U/L (4-35); Albumin Level 2.5 g/dL (3.5-5.1); Alkaline Phosphatase 159 U/L (38-126); Anion Gap 9 mmol/L (8-16); Aspartate Amino Transferase 17 U/L (14-36); Bilirubin,Total 0.5 mg/dL (0.2-1.3); Blood Urea Nitrogen 32 mg/dL (7-17); Calcium 8.4 mg/dL (8.4-10.2); Carbon Dioxide 24 mmol/L (22-30); Chloride 97 mmol/L (98-107); Estimated CRCL calculation 10 ml/min; Estimated Glomerular Filt Rate 8; Glucose 130 mg/dL (65-110); Magnesium 2.3 mg/dL (1.6-2.3); Potassium 4.2 mmol/L (3.4-5.0); Sodium 130 mmol/L (137-145)
--- NOTE | 2021-02-03 07:30 | PM.IMPN ---
Progress Note: A&P Assessment and Plan (1) Cellulitis and abscess of buttock: Code(s): L02.31 - Cutaneous abscess of buttock; L03.317 - Cellulitis of buttock Status: Acute Assessment and Plan: As per diabetic cellulitis antibiotic stewardship the patient was started on Primaxin and vancomycin. Wound and blood cultures BGTD. Surgery consulted Thank you for your help history of hidradenitis suppurativa Leukocytosis, still elevated at 24.2 today Trend labs Wound nurse consult Wound care directions in chart (2) ESRD on dialysis: Code(s): N18.6 - End stage renal disease; Z99.2 - Dependence on renal dialysis Status: Acute Assessment and Plan: Patient has dialysis on Wednesday nephrology consulted thank you Fistula in the left arm with thrill and bruit Cr elevated at 6.50, K is within normal range 4.2 Trend labs Dialysis today (3) Hypertension: Code(s): I10 - Essential (primary) hypertension Status: Chronic Assessment and Plan: Current BP 104/57 BP on admission 206/89, hypertensive urgency which is resolved Continue home nifedipine and carvedilol Trend BP Adjust therapy as indicated (4) CHF (congestive heart failure): Code(s): I50.9 - Heart failure, unspecified Status: Chronic Assessment and Plan: Non exacerbative diastolic heart failure Echo EF of 55% with grade 1 diastolic dysfunction Continue with Coreg Cardiology consulted and signed off Trend fluid status JVD present Dialysis today (5) DM2 (diabetes mellitus, type 2): Code(s): E11.9 - Type 2 diabetes mellitus without complications Status: Chronic Assessment and Plan: Glucose 130 Looks to be diet controlled Accu-Cheks AC and HS Sliding scale insulin Trend glucose Adjust therapy as indicated (6) V-tach: Code(s): I47.2 - Ventricular tachycardia Status: Acute Assessment and Plan: Nonsustained episodes of V-tach 16 beats continue Coreg replace potassium and magnesium echo was reviewed Time Spent With Patient Time with patient: 25 - 35 minutes Subjective Date/time seen: 02/03/21 0730 Interval history: Date/Time: 01/30/21 23:46 This is a 55-year-old female patient who has a history of end-stage renal disease and has dialysis on Wednesday and Wednesday. The patient stated that her last dialysis was Wednesday and she has not felt very well since then. 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 The wound to her buttocks is losing thick white drainage and has a order smell to it. The patient stated that she also has some pain to her buttocks. The patient has been having some intermittent apart abdominal pain and left lower chest pain since last night. She stated her pain was dull and was worse when she was lying supine and also with exertion. The patient has been having some nausea vomiting and shortness of breath. She also had some pain to her drawn left arm. Her pain is now relieved. 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 Cardiology and Nephrology have been consulted. Abdominal pelvis CT was read as extensive subcutaneous fatty infiltration and bilateral gluteal skin thickening extending in the perirectal space. Findings compatible with cellulitis. No drainable fluid collection to suggest abscess. Cholelithiasis. Nonobstructive bilateral renal stones. When I assessed the patient I was able to express some thick white drainage from the right buttocks. We did culture that in the emergency room. Blood cultures were drawn in the emergency room as well. Chest x-ray was read as no acute cardiopulmonary disease. Focal nodular density in the left upper
--- NOTE | 2021-02-03 07:30 | P.PNIM_ITS ---
Progress Note: A&P Assessment and Plan (1) Cellulitis and abscess of buttock: Code(s): L02.31 - Cutaneous abscess of buttock; L03.317 - Cellulitis of buttock Status: Acute Assessment and Plan: * As per diabetic cellulitis antibiotic stewardship the patient was started on Primaxin and vancomycin. * Wound and blood cultures BGTD. * Surgery consulted Thank you for your help * history of hidradenitis suppurativa * Leukocytosis, still elevated at 24.2 today * Trend labs * Wound nurse consult * Wound care directions in chart (2) ESRD on dialysis: Code(s): N18.6 - End stage renal disease; Z99.2 - Dependence on renal dialysis Status: Acute Assessment and Plan: * Patient has dialysis on Wednesday * nephrology consulted thank you * Fistula in the left arm with thrill and bruit * Cr elevated at 6.50, K is within normal range 4.2 * Trend labs * Dialysis today (3) Hypertension: Code(s): I10 - Essential (primary) hypertension Status: Chronic Assessment and Plan: * Current BP 104/57 * BP on admission 206/89, hypertensive urgency which is resolved * Continue home nifedipine and carvedilol * Trend BP * Adjust therapy as indicated (4) CHF (congestive heart failure): Code(s): I50.9 - Heart failure, unspecified Status: Chronic Assessment and Plan: * Non exacerbative diastolic heart failure * Echo EF of 55% with grade 1 diastolic dysfunction * Continue with Coreg * Cardiology consulted and signed off * Trend fluid status * JVD present * Dialysis today (5) DM2 (diabetes mellitus, type 2): Code(s): E11.9 - Type 2 diabetes mellitus without complications Status: Chronic Assessment and Plan: * Glucose 130 * Looks to be diet controlled * Accu-Cheks AC and HS * Sliding scale insulin * Trend glucose * Adjust therapy as indicated (6) V-tach: Code(s): I47.2 - Ventricular tachycardia Status: Acute Assessment and Plan: * Nonsustained episodes of V-tach 16 beats * continue Coreg * replace potassium and magnesium * echo was reviewed Time Spent With Patient Time with patient: 25 - 35 minutes Subjective Date/time seen: 02/03/21 0730 Interval history: Date/Time: 01/30/21 23:46 This is a 55-year-old female patient who has a history of end-stage renal disease and has dialysis on Wednesday and Wednesday. The patient stated that her last dialysis was Wednesday and she has not felt very well since then. 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 The wound to her buttocks is losing thick white drainage and has a order smell to it. The patient stated that she also has some pain to her buttocks. The patient has been having some intermittent apart abdominal pain and left lower chest pain since last night. She stated her pain was dull and was worse when she was lying supine and also with exertion. The patient has been having some nausea vomiting and shortness of breath. She also had some pain to her drawn left arm. Her pain is now relieved. The patient stated that she recently moved to [place] from [place] and does not have a primary care physician or intermediate accountant. 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 Cardiology and Nephrology have been consulted. Abdominal pelvis CT was read as extensive subcutaneous fatty infiltration and bilater
[2021-02-03 07:40] LABS: Glucose Point of Care 104 mg/dl (65-105)
[2021-02-03] MEDS: NIFEdipine 30 MG TAB.ER.24 60 MG PO (09:14)
[2021-02-03] MEDS: ASPIRIN 81 MG ENTERIC TABLET PO (09:14)
[2021-02-03] MEDS: DOXYCYCLINE HYCLATE 100 MG TABLET PO (09:14)
[2021-02-03] MEDS: ATORVASTATIN 20 MG TABLET PO (09:14)
[2021-02-03] MEDS: VITAMIN B CMPLX/VIT C/FOLIC AC 1 CAPSULE 1 CAP PO (09:15)
[2021-02-03] MEDS: carvediloL 25 MG TABLET PO ×2 (09:15→20:25)
[2021-02-03] MEDS: lisinopriL 10 MG TABLET PO (09:15)
[2021-02-03] MEDS: PANTOPRAZOLE 40 MG TABLET PO (09:15)
[2021-02-03] MEDS: HEPARIN SODIUM 5,000 UNITS/ML VIAL 5000 UNITS SUB-Q ×2 (09:16→20:25)
[2021-02-03] MEDS: ACETAMINOPHEN 325 MG TABLET 650 MG PO ×2 (09:23→19:48)
--- NOTE | 2021-02-03 12:09 | PM.PNGS ---
Progress Note: A&P Assessment and Plan (1) Hidradenitis: Code(s): L73.2 - Hidradenitis suppurativa Status: Acute Assessment and Plan: cont to manage conservatively, appreciate wound care input, cont abx, trend WBC, ?repeat CT to look for drainable collections Subjective Subjective Date/Time Seen: 02/03/21 12:09 reports she overall has been feeling much better, buttock wound still draining, but pain and swelling improved Review of Systems Review of Systems: All systems reviewed & are unremarkable except as noted in HPI and below Exam Const: General: cooperative, comfortable and no acute distress Resp: Effort & Inspection: normal respiratory effort Auscultation: clear to auscultation bilaterally Cardio: Rate: regular rate Rhythm: regular rhythm GI: Inspection: normal to inspection GI Palp: Yes Soft to palpation and No Tenderness to palpation present (GI) Skin: Other: gluteal hidraadenitis - still c purulent drainage, no obvious collections, induration/pain improved Objective Data Vital Signs Vital Signs: Vital Signs - 24 hr 02/02/21 14:00 02/02/21 16:00 02/02/21 20:00 Temperature 36.5 C Pulse Rate 71 95 88 Respiratory Rate 16 Blood Pressure 131/59 L Pulse Oximetry 99 02/02/21 21:09 02/02/21 22:00 02/03/21 00:00 Temperature 36.4 C L Pulse Rate 73 73 82 Respiratory Rate 18 Blood Pressure 145/66 H Pulse Oximetry 100 02/03/21 04:00 02/03/21 04:40 Temperature 36.4 C Pulse Rate 70 76 Respiratory Rate 18 Blood Pressure 104/57 L Pulse Oximetry 95 Intake/Output Intake/Output: Intake & Output 01/31/21 02/01/21 02/02/21 02/03/21 23:59 23:59 23:59 23:59 Intake Total 690 1660 1390 100 Output Total 1000 Balance -310 1660 1390 100 Meds/Results Medications: Active Medications Generic Name Dose Route Start Last Admin Trade Name Freq PRN Reason Stop Dose Admin Acetaminophen 650 mg 01/31/21 03:42 02/03/21 09:23 Acetaminophen 325 Mg Tablet PO 650 mg Q6H PRN Administration Mild Pain (1-3) or Fever Alprazolam 0.25 mg 02/01/21 13:03 02/01/21 13:18 Alprazolam (*Crx) 0.25 Mg Tablet PO 0.25 mg BID PRN Administration Anxiety Aspirin 81 mg 02/01/21 09:00 02/03/21 09:14 Aspirin 81 Mg Enteric Tablet PO 81 mg QAM ROMULO Administration Atorvastatin Calcium 20 mg 02/01/21 09:00 02/03/21 09:14 Atorvastatin 20 Mg Tablet PO 20 mg DAILY ROMULO Administration Atorvastatin Calcium 10 mg 02/01/21 21:00 02/02/21 21:09 Atorvastatin 10 Mg Tablet PO 10 mg HS ROMULO Administration Carvedilol 25 mg 01/31/21 11:50 02/03/21 09:15 Carvedilol 25 Mg Tablet PO 25 mg Q12HR ROMULO Administration Dextrose 12.5 gm 01/31/21 00:00 Dextrose 50% 25 Gm/50 Ml Syringe IV PUSH PRN PRN Hypoglycemia Protocol Diphenhydramine HCl 50 mg 02/03/21 03:17 02/03/21 03:24 Diphenhydramine Hcl Cap 25 Mg Capsule PO 50 mg Q6H PRN Administration Itching Doxycycline Hyclate 100 mg 01/31/21 09:00 02/03/21 09:14 Doxycycline Hyclate 100 Mg Tablet PO 03/03/21 08:59 100 mg DAILY ROMULO Administration Epoetin Arturo-epbx 10,000 units 02/03/21 19:07 Epoetin Arturo-Epbx 10,000 Units/Ml Vial IV PUSH 02/03/21 19:08 ONCE ONE Gabapentin 100 mg 02/01/21 21:00 02/02/21 21:09 Gabapentin 100 Mg Capsule PO 100 mg HS ROMULO Administration Glucagon 1 mg 01/31/21 00:00 Glucagon For Inj 1 Mg Vial IM PRN PRN Hypoglycemia Protocol Glucose 15 gm 01/31/21 00:00 Glucose Oral Gel 15 Gm Of Glucse In 37.5 Gm Tube PO PRN PRN Hypoglycemia Protocol Heparin Sodium (Porcine) 5,000 units 02/01/21 21:00 02/03/21 09:16 Heparin Sodium 5,000 Units/Ml Vial SUB-Q 5,000 units Q12HR ROMULO Administration Dextrose 1,000 mls @ 100 mls/hr 01/31/21 00:00 Dextrose 5% 1,000 Ml IVPB PRN PRN Hypoglycemia Protocol Albumin Human 50 mls @ 999 mls/hr 01/31
[2021-02-03 12:13] LABS: Glucose Point of Care 146 mg/dl (65-105)
[2021-02-03] MEDS: traMADol HCL (*CRX) 25 MG TABLET PO ×2 (14:34→22:13)
[2021-02-03] MEDS: ALPRAZolam (*CRX) 0.25 MG TABLET PO (14:55)
--- NOTE | 2021-02-03 15:50 | PM.PNNEP ---
Progress Note: A&P Assessment and Plan (1) End stage renal disease: Code(s): N18.6 - End stage renal disease Status: Chronic Assessment and Plan: HD underway. Volume status looks good. Potassium is looking good. (2) Cellulitis and abscess of buttock: Code(s): L02.31 - Cutaneous abscess of buttock; L03.317 - Cellulitis of buttock Status: Acute Assessment and Plan: as demonstrated by physical exam and imaging studies appropriate cultures obtained continue IV antibiotic therapy General Surgery following (3) Chest pain: Code(s): R07.9 - Chest pain, unspecified Status: Acute Assessment and Plan: Cardiology following follow telemetry continue aggressive medical mangement (multiple risk factors as already noted) (4) Hypertension: Code(s): I10 - Essential (primary) hypertension Status: Chronic Assessment and Plan: Blood pressure doing well. She is on carvedilol, lisinopril, nifedipine. (5) DM2 (diabetes mellitus, type 2): Code(s): E11.9 - Type 2 diabetes mellitus without complications Status: Chronic Assessment and Plan: follow accuchecks on SSI Will continue to follow. Subjective Date/time seen: 02/03/21 15:50 Interval history: patient is feeling better today. She is on dialysis and tolerating it well. She was seen at 3:45 p.m. Review of Systems Cardiovascular: Cardiovascular: Reports no additional cardiovascular complaints Respiratory: Respiratory: Reports no additional respiratory complaints Gastrointestinal: Gastrointestinal: Reports no additional gastrointestinal complaints Genitourinary: Genitourinary: Reports no additional female genitourinary complaints Objective Data Vital Signs Vital Signs: Vital Signs - 24 hr 02/02/21 16:00 02/02/21 20:00 02/02/21 21:09 Temperature Pulse Rate 95 88 73 Respiratory Rate Blood Pressure Pulse Oximetry 02/02/21 22:00 02/03/21 00:00 02/03/21 04:00 Temperature 36.4 C L Pulse Rate 73 82 70 Respiratory Rate 18 Blood Pressure 145/66 H Pulse Oximetry 100 02/03/21 04:40 02/03/21 08:30 02/03/21 14:35 Temperature 36.4 C 36.7 C Pulse Rate 76 80 Respiratory Rate 18 18 Blood Pressure 104/57 L 111/53 L 112/55 L Pulse Oximetry 95 100 Intake/Output Intake/Output: Intake & Output 01/31/21 02/01/21 02/02/21 02/03/21 23:59 23:59 23:59 23:59 Intake Total 690 1660 1390 380 Output Total 1000 Balance -310 1660 1390 380 Meds/Results Medications: Active Medications Generic Name Dose Route Start Last Admin Trade Name Freq PRN Reason Stop Dose Admin Acetaminophen 650 mg 01/31/21 03:42 02/03/21 09:23 Acetaminophen 325 Mg Tablet PO 650 mg Q6H PRN Administration Mild Pain (1-3) or Fever Alprazolam 0.25 mg 02/01/21 13:03 02/03/21 14:55 Alprazolam (*Crx) 0.25 Mg Tablet PO 0.25 mg BID PRN Administration Anxiety Aspirin 81 mg 02/01/21 09:00 02/03/21 09:14 Aspirin 81 Mg Enteric Tablet PO 81 mg QAM ROMULO Administration Atorvastatin Calcium 20 mg 02/01/21 09:00 02/03/21 09:14 Atorvastatin 20 Mg Tablet PO 20 mg DAILY ROMULO Administration Atorvastatin Calcium 10 mg 02/01/21 21:00 02/02/21 21:09 Atorvastatin 10 Mg Tablet PO 10 mg HS ROMULO Administration Carvedilol 25 mg 01/31/21 11:50 02/03/21 09:15 Carvedilol 25 Mg Tablet PO 25 mg Q12HR ROMULO Administration Dextrose 12.5 gm 01/31/21 00:00 Dextrose 50% 25 Gm/50 Ml Syringe IV PUSH PRN PRN Hypoglycemia Protocol Diphenhydramine HCl 50 mg 02/03/21 03:17 02/03/21 03:24 Diphenhydramine Hcl Cap 25 Mg Capsule PO 50 mg Q6H PRN Administration Itching Doxycycline Hyclate 100 mg 01/31/21 09:00 02/03/21 09:14 Doxycycline Hyclate 100 Mg Tablet PO 03/03/21 08:59 100 mg DAILY ROMULO Administration Epoetin Arturo-epbx 10,000 units 02/03/21 19:07 Ep
--- NOTE | 2021-02-03 16:32 | WPDCDIQUERY2 ---
CDI Query Clarification Request WBC 25.3 on admission VS 97.0-88-14-206/89 Cellulitis and abscess of buttock documented History of hidradenitis suppurativa Lactic Acid <0.5 I am seeing the patient for sepsis was documented in Dr. Shi's progress note on 01/31. Please clarify if sepsis is present or has been ruled out. <Laura Holder, SHINE - Last Filed: 02/03/21 16:41> Sepsis is ruled out QSofa score is 0 No fever, hypotension, or altered mental status WBC is elevated Blood cultures NGTD Renal function not valid since patient is dialysis <CAROL Khanna - Last Filed: 02/04/21 06:06>
[2021-02-03] MEDS: GABAPENTIN 100 MG CAPSULE PO (20:24)
[2021-02-03] MEDS: ATORVASTATIN 10 MG TABLET PO (20:25)
[2021-02-03 20:26] LABS: Vancomycin Random 16.4 ug/mL (10-20)
[2021-02-03] MEDS: SIMETHICONE 80 MG TAB.CHEW PO (22:11)
[2021-02-03 22:20] LABS: Glucose Point of Care 89 mg/dl (65-105)
[2021-02-04] VITALS (11 sets, daily range): BP systolic 121–136; BP diastolic 55–62; PULSE 69–89; RESP 12–16; TEMP 36.4–36.6; O2SAT 93–100
[2021-02-04 04:40] LABS: Basophils Absolute Auto 0.1 K/mm3 (0.0-0.1); Basophils Percent Auto 0.4 % (0.2-1.2); Eosinophils Absolute Auto 0.2 K/mm3 (0-0.3); Eosinophils Percent Auto 1.1 % (0-4.4); Hematocrit 27.5 % (37.0-47.0); Hemoglobin 8.8 g/dL (12.0-15.0); Immature Granulocyte Absolute 0.13 K/mm3 (0.00-0.031); Immature Granulocyte Percent A 0.6 % (0-0.5); Lymphocytes Absolute Auto 2.39 K/mm3 (0.9-3.2); Mean Corpuscular Hemoglobin 30.4 pg (26-34); Mean Corpuscular Volume 95.2 fl (80-100); Mean Platelet Volume 9.8 fl (7.4-10.4); Monocytes Percent Auto 4.6 % (2.6-8.5); Neutrophils Absolute Auto 17.8 K/mm3 (1.3-6.7); Neutrophils Percent Auto 82.3 % (45.5-73.1); Platelet Count Result 324 k/mm3 (150-375); Red Blood Count 2.89 M/mm3 (4.2-5.4); Red Cell Distribution Width 15.9 % (11.5-14.5); White Blood Count 21.7 K/mm3 (4.5-10.0)
[2021-02-04 05:04] LABS: Alanine Aminotransferase 11 U/L (4-35); Albumin Level 2.6 g/dL (3.5-5.1); Alkaline Phosphatase 158 U/L (38-126); Anion Gap 6 mmol/L (8-16); Aspartate Amino Transferase 20 U/L (14-36); Bilirubin,Total 0.4 mg/dL (0.2-1.3); Blood Urea Nitrogen 19 mg/dL (7-17); Calcium 8.1 mg/dL (8.4-10.2); Carbon Dioxide 28 mmol/L (22-30); Chloride 96 mmol/L (98-107); Estimated CRCL calculation 15 ml/min; Estimated Glomerular Filt Rate 12; Glucose 143 mg/dL (65-110); Magnesium 1.9 mg/dL (1.6-2.3); Potassium 4.2 mmol/L (3.4-5.0); Sodium 130 mmol/L (137-145)
--- NOTE | 2021-02-04 06:34 | PM.PNNEP ---
Progress Note: A&P Assessment and Plan (1) End stage renal disease: Code(s): N18.6 - End stage renal disease Status: Chronic Assessment and Plan: HD due tomorrow. Volume status looks good. Potassium is looking good. (2) Cellulitis and abscess of buttock: Code(s): L02.31 - Cutaneous abscess of buttock; L03.317 - Cellulitis of buttock Status: Acute Assessment and Plan: as demonstrated by physical exam and imaging studies wound cultures mixed corina. blood cx neg ct showed no abscess. on imipenem wbc still high in the 20s. todays pending. General Surgery following (3) Chest pain: Code(s): R07.9 - Chest pain, unspecified Status: Acute Assessment and Plan: Cardiology following follow telemetry continue aggressive medical mangement (multiple risk factors as already noted) (4) Hypertension: Code(s): I10 - Essential (primary) hypertension Status: Chronic Assessment and Plan: Blood pressure well controlled. She is on carvedilol, lisinopril, nifedipine. (5) DM2 (diabetes mellitus, type 2): Code(s): E11.9 - Type 2 diabetes mellitus without complications Status: Chronic Assessment and Plan: follow accuchecks on SSI Subjective Date/time seen: 02/04/21 06:34 Interval history: patient is feeling okay this morning. she had dizziness after dialysis yesterday. her sugar was a bit low and she ate and felt better. slept well yesterday. Exam Narrative: GENERAL APPEARANCE: well developed well nourished AA female in no acute distress CARDIOVASCULAR: RRR,no rub or gallop RESPIRATORY: clear ABDOMEN: BS+ nontender EXTREMITIES: no evidence of cyanosis, clubbing, trace edema SKIN: no acute rash. Objective Data Vital Signs Vital Signs: Vital Signs - 24 hr 02/03/21 08:00 02/03/21 08:30 02/03/21 12:00 Temperature Pulse Rate 88 84 Respiratory Rate Blood Pressure 111/53 L Pulse Oximetry 02/03/21 14:35 02/03/21 15:20 02/03/21 15:31 Temperature 36.7 C 36.7 C Pulse Rate 80 100 80 Respiratory Rate 18 18 Blood Pressure 112/55 L 129/68 129/68 Pulse Oximetry 100 02/03/21 16:00 02/03/21 16:30 02/03/21 17:30 Temperature Pulse Rate 83 84 83 Respiratory Rate Blood Pressure 130/74 131/61 Pulse Oximetry 02/03/21 18:41 02/03/21 18:45 02/03/21 19:49 Temperature 36.7 C 36.4 C Pulse Rate 75 82 91 Respiratory Rate 18 16 Blood Pressure 151/76 H 146/69 H 134/60 Pulse Oximetry 100 02/03/21 20:00 02/03/21 20:25 02/04/21 00:00 Temperature Pulse Rate 85 80 85 Respiratory Rate Blood Pressure Pulse Oximetry 02/04/21 04:00 02/04/21 04:37 Temperature 36.6 C Pulse Rate 84 87 Respiratory Rate 16 Blood Pressure 121/57 L Pulse Oximetry 93 Intake/Output Intake/Output: Intake & Output 02/01/21 02/02/21 02/03/21 02/04/21 23:59 23:59 23:59 23:59 Intake Total 1660 1390 1330 400 Output Total 1010 Balance 1660 1390 320 400 Meds/Results Medications: Active Medications Generic Name Dose Route Start Last Admin Trade Name Freq PRN Reason Stop Dose Admin Acetaminophen 650 mg 01/31/21 03:42 02/03/21 19:48 Acetaminophen 325 Mg Tablet PO 650 mg Q6H PRN Administration Mild Pain (1-3) or Fever Alprazolam 0.25 mg 02/01/21 13:03 02/03/21 14:55 Alprazolam (*Crx) 0.25 Mg Tablet PO 0.25 mg BID PRN Administration Anxiety Aspirin 81 mg 02/01/21 09:00 02/03/21 09:14 Aspirin 81 Mg Enteric Tablet PO 81 mg QAM ROMULO Administration Atorvastatin Calcium 20 mg 02/01/21 09:00 02/03/21 09:14 Atorvastatin 20 Mg Tablet PO 20 mg DAILY ROMULO Administration Atorvastatin Calcium 10 mg 02/01/21 21:00 02/03/21 20:25 Atorvastatin 10 Mg Tablet PO 10 mg HS ROMULO Administration Carvedilol 25 mg 01/31/21 11:50 02/03/21 20:25 Carvedilol 25 Mg Tablet PO 25 mg Q12HR ROMULO Administr
[2021-02-04] MEDS: CENTRAL LINE FLUSH 10 ML IV PUSH ×3 (06:50→22:28)
[2021-02-04 08:06] LABS: Glucose Point of Care 135 mg/dl (65-105)
[2021-02-04] MEDS: ACETAMINOPHEN 325 MG TABLET 650 MG PO ×2 (08:53→14:30)
[2021-02-04] MEDS: ASPIRIN 81 MG ENTERIC TABLET PO (08:54)
[2021-02-04] MEDS: VITAMIN B CMPLX/VIT C/FOLIC AC 1 CAPSULE 1 CAP PO (08:55)
[2021-02-04] MEDS: HEPARIN SODIUM 5,000 UNITS/ML VIAL 5000 UNITS SUB-Q ×2 (08:55→22:27)
[2021-02-04] MEDS: lisinopriL 10 MG TABLET PO (08:55)
[2021-02-04] MEDS: carvediloL 25 MG TABLET PO ×2 (08:55→22:27)
[2021-02-04] MEDS: PANTOPRAZOLE 40 MG TABLET PO (08:55)
[2021-02-04] MEDS: ATORVASTATIN 20 MG TABLET PO (08:55)
[2021-02-04] MEDS: NIFEdipine 30 MG TAB.ER.24 60 MG PO (08:55)
[2021-02-04] MEDS: DOXYCYCLINE HYCLATE 100 MG TABLET PO (08:55)
[2021-02-04] MEDS: SIMETHICONE 80 MG TAB.CHEW PO (09:03)
--- NOTE | 2021-02-04 11:12 | PM.PNGS ---
Progress Note: A&P Assessment and Plan (1) Hidradenitis: Code(s): L73.2 - Hidradenitis suppurativa Status: Acute Assessment and Plan: cont local wound care, abx, leukocytosis improving, no acute surgical issues, will sign off, call c ?s, issues Subjective Subjective Date/Time Seen: 02/04/21 11:12 no acute issues, cont to feel pretty good, gluteal pain much improved Review of Systems Review of Systems: All systems reviewed & are unremarkable except as noted in HPI and below Exam Const: General: cooperative, comfortable and no acute distress Resp: Effort & Inspection: normal respiratory effort Auscultation: clear to auscultation bilaterally Cardio: Rate: regular rate Rhythm: regular rhythm GI: Inspection: normal to inspection and non-distended GI Palp: Yes Soft to palpation and No Tenderness to palpation present (GI) Skin: Other: brock gluteal hidraadenitis - no changes, mod induration, mod drainage diffusely Objective Data Vital Signs Vital Signs: Vital Signs - 24 hr 02/03/21 12:00 02/03/21 14:35 02/03/21 15:20 Temperature 36.7 C 36.7 C Pulse Rate 84 80 100 Respiratory Rate 18 18 Blood Pressure 112/55 L 129/68 Pulse Oximetry 100 02/03/21 15:31 02/03/21 16:00 02/03/21 16:30 Temperature Pulse Rate 80 83 84 Respiratory Rate Blood Pressure 129/68 130/74 Pulse Oximetry 02/03/21 17:30 02/03/21 18:41 02/03/21 18:45 Temperature 36.7 C Pulse Rate 83 75 82 Respiratory Rate 18 Blood Pressure 131/61 151/76 H 146/69 H Pulse Oximetry 02/03/21 19:49 02/03/21 20:00 02/03/21 20:25 Temperature 36.4 C Pulse Rate 91 85 80 Respiratory Rate 16 Blood Pressure 134/60 Pulse Oximetry 100 02/04/21 00:00 02/04/21 04:00 02/04/21 04:37 Temperature 36.6 C Pulse Rate 85 84 87 Respiratory Rate 16 Blood Pressure 121/57 L Pulse Oximetry 93 02/04/21 08:55 Temperature Pulse Rate 88 Respiratory Rate Blood Pressure Pulse Oximetry Intake/Output Intake/Output: Intake & Output 1202/02/21 02/03/21 02/04/21 23:59 23:59 23:59 23:59 Intake Total 1660 1390 1330 600 Output Total 1010 Balance 1660 1390 320 600 Meds/Results Medications: Active Medications Generic Name Dose Route Start Last Admin Trade Name Freq PRN Reason Stop Dose Admin Acetaminophen 650 mg 01/31/21 03:42 02/04/21 08:53 Acetaminophen 325 Mg Tablet PO 650 mg Q6H PRN Administration Mild Pain (1-3) or Fever Alprazolam 0.25 mg 02/01/21 13:03 02/03/21 14:55 Alprazolam (*Crx) 0.25 Mg Tablet PO 0.25 mg BID PRN Administration Anxiety Aspirin 81 mg 02/01/21 09:00 02/04/21 08:54 Aspirin 81 Mg Enteric Tablet PO 81 mg QAM ROMULO Administration Atorvastatin Calcium 20 mg 02/01/21 09:00 02/04/21 08:55 Atorvastatin 20 Mg Tablet PO 20 mg DAILY ROMULO Administration Atorvastatin Calcium 10 mg 02/01/21 21:00 02/03/21 20:25 Atorvastatin 10 Mg Tablet PO 10 mg HS ROMULO Administration Carvedilol 25 mg 01/31/21 11:50 02/04/21 08:55 Carvedilol 25 Mg Tablet PO 25 mg Q12HR ROMULO Administration Dextrose 12.5 gm 01/31/21 00:00 Dextrose 50% 25 Gm/50 Ml Syringe IV PUSH PRN PRN Hypoglycemia Protocol Diphenhydramine HCl 50 mg 02/03/21 03:17 02/03/21 03:24 Diphenhydramine Hcl Cap 25 Mg Capsule PO 50 mg Q6H PRN Administration Itching Doxycycline Hyclate 100 mg 01/31/21 09:00 02/04/21 08:55 Doxycycline Hyclate 100 Mg Tablet PO 03/03/21 08:59 100 mg DAILY ROMULO Administration Epoetin Arturo-epbx 10,000 units 02/05/21 06:39 Epoetin Arturo-Epbx 10,000 Units/Ml Vial IV PUSH MOWEFR ROMULO Gabapentin 100 mg 02/01/21 21:00 02/03/21 20:24 Gabapentin 100 Mg Capsule PO 100 mg HS ROMULO Administration Glucagon 1 mg 01/31/21 00:00 Glucagon For Inj 1 Mg Vial IM PRN PRN Hypoglycemia Protocol Glucose 15 gm 01/31/21 00:00 Glucose Oral Gel 15 Gm Of G
[2021-02-04 11:51] LABS: Glucose Point of Care 159 mg/dl (65-105)
--- NOTE | 2021-02-04 13:15 | P.PNIM_ITS ---
Progress Note: A&P Assessment and Plan (1) Cellulitis and abscess of buttock: Code(s): L02.31 - Cutaneous abscess of buttock; L03.317 - Cellulitis of buttock Status: Acute Assessment and Plan: * As per diabetic cellulitis antibiotic stewardship the patient was started on Primaxin and vancomycin. * Wound and blood cultures BGTD. * Surgery consulted Thank you for your help * history of hidradenitis suppurativa * Leukocytosis, still elevated at 21.7 today * Trend labs * Wound nurse consult * Wound care directions in chart (2) ESRD on dialysis: Code(s): N18.6 - End stage renal disease; Z99.2 - Dependence on renal dialysis Status: Acute Assessment and Plan: * Patient has dialysis on Wednesday * nephrology consulted thank you * Fistula in the left arm with thrill and bruit * Cr elevated at 4.50, K is within normal range 4.2 * Trend labs * Dialysis today (3) Hypertension: Code(s): I10 - Essential (primary) hypertension Status: Chronic Assessment and Plan: * Current BP 121/57 * BP on admission 206/89, hypertensive urgency which is resolved * Continue home nifedipine and carvedilol * Trend BP * Adjust therapy as indicated (4) CHF (congestive heart failure): Code(s): I50.9 - Heart failure, unspecified Status: Chronic Assessment and Plan: * Non exacerbative diastolic heart failure * Echo EF of 55% with grade 1 diastolic dysfunction * Continue with Coreg * Cardiology consulted and signed off * Trend fluid status * JVD present * Dialysis today (5) DM2 (diabetes mellitus, type 2): Code(s): E11.9 - Type 2 diabetes mellitus without complications Status: Chronic Assessment and Plan: * Glucose 143 * Looks to be diet controlled * Accu-Cheks AC and HS * Sliding scale insulin * Trend glucose * Adjust therapy as indicated (6) V-tach: Code(s): I47.2 - Ventricular tachycardia Status: Acute Assessment and Plan: * Nonsustained episodes of V-tach 16 beats * continue Coreg * replace potassium and magnesium * echo was reviewed Time Spent With Patient Time with patient: Greater than 35 minutes Subjective Date/time seen: 02/04/21 13:15 Interval history: Date/Time: 01/30/21 23:46 This is a 55-year-old female patient who has a history of end-stage renal disease and has dialysis on Wednesday and Wednesday. The patient stated that her last dialysis was Wednesday and she has not felt very well since then. 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 The wound to her buttocks is losing thick white drainage and has a order smell to it. The patient stated that she also has some pain to her buttocks. The patient has been having some intermittent apart abdominal pain a nd left lower chest pain since last night. She stated her pain was dull and was worse when she was lying supine and also with exertion. The patient has been having some nausea vomiting and shortness of breath. She also had some pain to her drawn left arm. Her pain is now relieved. 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 Cardiology and Nephrology have been consulted. Abdominal pelvis CT was read as extensive subcutaneous fatty infiltration and
--- NOTE | 2021-02-04 13:15 | PM.IMPN ---
Progress Note: A&P Assessment and Plan (1) Cellulitis and abscess of buttock: Code(s): L02.31 - Cutaneous abscess of buttock; L03.317 - Cellulitis of buttock Status: Acute Assessment and Plan: As per diabetic cellulitis antibiotic stewardship the patient was started on Primaxin and vancomycin. Wound and blood cultures BGTD. Surgery consulted Thank you for your help history of hidradenitis suppurativa Leukocytosis, still elevated at 21.7 today Trend labs Wound nurse consult Wound care directions in chart (2) ESRD on dialysis: Code(s): N18.6 - End stage renal disease; Z99.2 - Dependence on renal dialysis Status: Acute Assessment and Plan: Patient has dialysis on Wednesday nephrology consulted thank you Fistula in the left arm with thrill and bruit Cr elevated at 4.50, K is within normal range 4.2 Trend labs Dialysis today (3) Hypertension: Code(s): I10 - Essential (primary) hypertension Status: Chronic Assessment and Plan: Current BP 121/57 BP on admission 206/89, hypertensive urgency which is resolved Continue home nifedipine and carvedilol Trend BP Adjust therapy as indicated (4) CHF (congestive heart failure): Code(s): I50.9 - Heart failure, unspecified Status: Chronic Assessment and Plan: Non exacerbative diastolic heart failure Echo EF of 55% with grade 1 diastolic dysfunction Continue with Coreg Cardiology consulted and signed off Trend fluid status JVD present Dialysis today (5) DM2 (diabetes mellitus, type 2): Code(s): E11.9 - Type 2 diabetes mellitus without complications Status: Chronic Assessment and Plan: Glucose 143 Looks to be diet controlled Accu-Cheks AC and HS Sliding scale insulin Trend glucose Adjust therapy as indicated (6) V-tach: Code(s): I47.2 - Ventricular tachycardia Status: Acute Assessment and Plan: Nonsustained episodes of V-tach 16 beats continue Coreg replace potassium and magnesium echo was reviewed Time Spent With Patient Time with patient: Greater than 35 minutes Subjective Date/time seen: 02/04/21 13:15 Interval history: Date/Time: 01/30/21 23:46 This is a 55-year-old female patient who has a history of end-stage renal disease and has dialysis on Wednesday and Wednesday. The patient stated that her last dialysis was Wednesday and she has not felt very well since then. 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 The wound to her buttocks is losing thick white drainage and has a order smell to it. The patient stated that she also has some pain to her buttocks. The patient has been having some intermittent apart abdominal pain and left lower chest pain since last night. She stated her pain was dull and was worse when she was lying supine and also with exertion. The patient has been having some nausea vomiting and shortness of breath. She also had some pain to her drawn left arm. Her pain is now relieved. The patient stated that she recently moved to [place] from [place] and does not have a primary care physician or bolt man. She does have a orthopedic physician in [place]. Cardiology and Nephrology have been consulted. Abdominal pelvis CT was read as extensive subcutaneous fatty infiltration and bilateral gluteal skin thickening extending in the perirectal space. Findings compatible with cellulitis. No drainable fluid collection to suggest abscess. Cholelithiasis. Nonobstructive bilateral renal stones. When I assessed the patient I was able to express some thick white drainage from the right buttocks. We did culture that in the emergency room. Blood cultures were drawn in the emergency room as well. Chest x-ray was read as no acute cardiopulmonary disease. Focal nodular density in the le
[2021-02-04 16:34] LABS: Glucose Point of Care 137 mg/dl (65-105)
[2021-02-04] MEDS: traMADol HCL (*CRX) 25 MG TABLET PO ×2 (17:01→22:24)
[2021-02-04] MEDS: GABAPENTIN 100 MG CAPSULE PO (22:27)
[2021-02-05] VITALS (23 sets, daily range): BP systolic 120–158; BP diastolic 47–78; PULSE 66–98; RESP 12–17; TEMP 36–37; O2SAT 96–100
[2021-02-05 01:31] LABS: Glucose Point of Care 168 mg/dl (65-105)
[2021-02-05] MEDS: SIMETHICONE 80 MG TAB.CHEW PO ×2 (06:03→12:28)
[2021-02-05] MEDS: ACETAMINOPHEN 325 MG TABLET 650 MG PO ×2 (06:10→20:41)
[2021-02-05] MEDS: CENTRAL LINE FLUSH 10 ML IV PUSH ×3 (06:15→20:43)
[2021-02-05 06:19] LABS: Basophils Absolute Auto 0.1 K/mm3 (0.0-0.1); Basophils Percent Auto 0.3 % (0.2-1.2); Eosinophils Absolute Auto 0.4 K/mm3 (0-0.3); Eosinophils Percent Auto 1.7 % (0-4.4); Hematocrit 28.1 % (37.0-47.0); Hemoglobin 8.8 g/dL (12.0-15.0); Immature Granulocyte Percent A 0.9 % (0-0.5); Lymphocytes Absolute Auto 3.26 K/mm3 (0.9-3.2); Lymphocytes Percent Auto 14.1 % (18.3-44.2); Mean Corpuscular HGB Conc 31.3 g/dl (32-36); Mean Corpuscular Hemoglobin 30.1 pg (26-34); Mean Corpuscular Volume 96.2 fl (80-100); Mean Platelet Volume 9.9 fl (7.4-10.4); Monocytes Absolute Auto 1.3 K/mm3 (0.1-0.6); Monocytes Percent Auto 5.4 % (2.6-8.5); Neutrophils Absolute Auto 17.9 K/mm3 (1.3-6.7); Neutrophils Percent Auto 77.6 % (45.5-73.1); Platelet Count Result 346 k/mm3 (150-375); Red Blood Count 2.92 M/mm3 (4.2-5.4); White Blood Count 23.1 K/mm3 (4.5-10.0)
[2021-02-05 06:26] LABS: Alanine Aminotransferase 9 U/L (4-35); Albumin Level 2.7 g/dL (3.5-5.1); Alkaline Phosphatase 166 U/L (38-126); Anion Gap 8 mmol/L (8-16); Aspartate Amino Transferase 16 U/L (14-36); Bilirubin,Total 0.4 mg/dL (0.2-1.3); Blood Urea Nitrogen 29 mg/dL (7-17); Calcium 8.5 mg/dL (8.4-10.2); Carbon Dioxide 25 mmol/L (22-30); Chloride 95 mmol/L (98-107); Estimated CRCL calculation 12 ml/min; Estimated Glomerular Filt Rate 9; Glucose 132 mg/dL (65-110); Magnesium 1.9 mg/dL (1.6-2.3); Phosphorus 3.9 mg/dL (2.5-4.5); Potassium 4.7 mmol/L (3.4-5.0); Sodium 128 mmol/L (137-145)
[2021-02-05] MEDS: ATORVASTATIN 20 MG TABLET PO (08:06)
[2021-02-05] MEDS: PANTOPRAZOLE 40 MG TABLET PO (08:06)
[2021-02-05] MEDS: DOXYCYCLINE HYCLATE 100 MG TABLET PO (08:06)
[2021-02-05] MEDS: VITAMIN B CMPLX/VIT C/FOLIC AC 1 CAPSULE 1 CAP PO (08:06)
[2021-02-05] MEDS: ASPIRIN 81 MG ENTERIC TABLET PO (08:06)
[2021-02-05] MEDS: NIFEdipine 30 MG TAB.ER.24 60 MG PO (08:06)
[2021-02-05] MEDS: lisinopriL 10 MG TABLET PO (08:06)
[2021-02-05] MEDS: carvediloL 25 MG TABLET PO ×2 (08:07→20:42)
[2021-02-05] MEDS: HEPARIN SODIUM 5,000 UNITS/ML VIAL 5000 UNITS SUB-Q ×2 (08:07→20:43)
[2021-02-05 08:24] LABS: Glucose Point of Care 130 mg/dl (65-105)
[2021-02-05 11:42] LABS: Glucose Point of Care 132 mg/dl (65-105)
--- NOTE | 2021-02-05 12:15 | P.PNNP_ITS ---
Progress Note: A&P Assessment and Plan (1) End stage renal disease: Code(s): N18.6 - End stage renal disease Status: Chronic Assessment and Plan: * HD due today * Volume status looks good. * Potassium is looking good. (2) Cellulitis and abscess of buttock: Code(s): L02.31 - Cutaneous abscess of buttock; L03.317 - Cellulitis of buttock Status: Acute Assessment and Plan: * as demonstrated by physical exam and imaging studies * wound cultures mixed corina. * blood cx neg * ct showed no abscess. * on imipenem * wbc still high in the 20s. todays pending. * General Surgery following (3) Chest pain: Code(s): R07.9 - Chest pain, unspecified Status: Acute Assessment and Plan: * Cardiology following * follow telemetry * continue aggressive medical mangement (multiple risk factors as already noted) (4) Hypertension: Code(s): I10 - Essential (primary) hypertension Status: Chronic Assessment and Plan: * Blood pressure well controlled. * She is on carvedilol, lisinopril, nifedipine. (5) DM2 (diabetes mellitus, type 2): Code(s): E11.9 - Type 2 diabetes mellitus without complications Status: Chronic Assessment and Plan: * follow accuchecks * on SSI Subjective Date/time seen: 02/05/21 12:15 Interval history: patient is feeling okay this morning. eager for discharge after dialysis today slept well yesterday. Exam Narrative: GENERAL APPEARANCE: well developed well nourished AA female in no acute distress CARDIOVASCULAR: RRR,no rub or gallop RESPIRATORY: clear bilaterally ABDOMEN: BS+ nontender EXTREMITIES: no evidence of cyanosis, clubbing, trace edema SKIN: no acute rash or subcu nodules Objective Data Vital Signs Vital Signs: Vital Signs - 24 hr 02/04/21 14:00 02/04/21 16:00 02/04/21 20:00 Temperature 36.4 C Pulse Rate 69 84 72 Respiratory Rate 16 Blood Pressure 136/62 Pulse Oximetry 100 02/04/21 21:52 02/04/21 22:27 02/05/21 00:00 Temperature 36.6 C Pulse Rate 79 79 77 Respiratory Rate 12 Blood Pressure 132/55 L Pulse Oximetry 98 02/05/21 04:00 02/05/21 05:09 02/05/21 08:00 Temperature 36.1 C L Pulse Rate 82 76 85 Respiratory Rate 12 Blood Pressure 132/58 L Pulse Oximetry 96 Intake/Output Intake/Output: Intake & Output 02/02/21 02/03/21 02/04/21 02/05/21 23:59 23:59 23:59 23:59 Intake Total 1390 1330 2260 440 Output Total 1010 Balance 3863 092 5273 440 Meds/Results Medications: Active Medications Generic Name Dose Route Start Last Admin Trade Name Freq PRN Reason Stop Dose Admin Acetaminophen 650 mg 01/31/21 03:42 02/05/21 06:10 Acetaminophen 325 Mg Tablet PO 650 mg Q6H PRN Administration Mild Pain (1-3) or Fever Alprazolam 0.25 mg 02/01/21 13:03 02/03/21 14:55 Alprazolam (*Crx) 0.25 Mg Tablet PO 0.25 mg BID PRN Administration Anxiety Aspirin 81 mg 02/01/21 09:00 02/05/21 08:06 Aspirin 81 Mg Enteric Tablet [facility]
--- NOTE | 2021-02-05 12:15 | PM.PNNEP ---
Progress Note: A&P Assessment and Plan (1) End stage renal disease: Code(s): N18.6 - End stage renal disease Status: Chronic Assessment and Plan: HD due today Volume status looks good. Potassium is looking good. (2) Cellulitis and abscess of buttock: Code(s): L02.31 - Cutaneous abscess of buttock; L03.317 - Cellulitis of buttock Status: Acute Assessment and Plan: as demonstrated by physical exam and imaging studies wound cultures mixed corina. blood cx neg ct showed no abscess. on imipenem wbc still high in the 20s. todays pending. General Surgery following (3) Chest pain: Code(s): R07.9 - Chest pain, unspecified Status: Acute Assessment and Plan: Cardiology following follow telemetry continue aggressive medical mangement (multiple risk factors as already noted) (4) Hypertension: Code(s): I10 - Essential (primary) hypertension Status: Chronic Assessment and Plan: Blood pressure well controlled. She is on carvedilol, lisinopril, nifedipine. (5) DM2 (diabetes mellitus, type 2): Code(s): E11.9 - Type 2 diabetes mellitus without complications Status: Chronic Assessment and Plan: follow accuchecks on SSI Subjective Date/time seen: 02/05/21 12:15 Interval history: patient is feeling okay this morning. eager for discharge after dialysis today slept well yesterday. Exam Narrative: GENERAL APPEARANCE: well developed well nourished AA female in no acute distress CARDIOVASCULAR: RRR,no rub or gallop RESPIRATORY: clear bilaterally ABDOMEN: BS+ nontender EXTREMITIES: no evidence of cyanosis, clubbing, trace edema SKIN: no acute rash or subcu nodules Objective Data Vital Signs Vital Signs: Vital Signs - 24 hr 02/04/21 14:00 02/04/21 16:00 02/04/21 20:00 Temperature 36.4 C Pulse Rate 69 84 72 Respiratory Rate 16 Blood Pressure 136/62 Pulse Oximetry 100 02/04/21 21:52 02/04/21 22:27 02/05/21 00:00 Temperature 36.6 C Pulse Rate 79 79 77 Respiratory Rate 12 Blood Pressure 132/55 L Pulse Oximetry 98 02/05/21 04:00 02/05/21 05:09 02/05/21 08:00 Temperature 36.1 C L Pulse Rate 82 76 85 Respiratory Rate 12 Blood Pressure 132/58 L Pulse Oximetry 96 Intake/Output Intake/Output: Intake & Output 02/02/21 02/03/21 02/04/21 02/05/21 23:59 23:59 23:59 23:59 Intake Total 1390 1330 2260 440 Output Total 1010 Balance 0816 924 9017 440 Meds/Results Medications: Active Medications Generic Name Dose Route Start Last Admin Trade Name Freq PRN Reason Stop Dose Admin Acetaminophen 650 mg 01/31/21 03:42 02/05/21 06:10 Acetaminophen 325 Mg Tablet PO 650 mg Q6H PRN Administration Mild Pain (1-3) or Fever Alprazolam 0.25 mg 02/01/21 13:03 02/03/21 14:55 Alprazolam (*Crx) 0.25 Mg Tablet PO 0.25 mg BID PRN Administration Anxiety Aspirin 81 mg 02/01/21 09:00 02/05/21 08:06 Aspirin 81 Mg Enteric Tablet PO 81 mg QAM ROMULO Administration Atorvastatin Calcium 20 mg 02/01/21 09:00 02/05/21 08:06 Atorvastatin 20 Mg Tablet PO 20 mg DAILY ROMULO Administration Carvedilol 25 mg 01/31/21 11:50 02/05/21 08:07 Carvedilol 25 Mg Tablet PO 25 mg Q12HR ROMULO Administration Dextrose 12.5 gm 01/31/21 00:00 Dextrose 50% 25 Gm/50 Ml Syringe IV PUSH PRN PRN Hypoglycemia Protocol Diphenhydramine HCl 50 mg 02/03/21 03:17 02/03/21 03:24 Diphenhydramine Hcl Cap 25 Mg Capsule PO 50 mg Q6H PRN Administration Itching Doxycycline Hyclate 100 mg 01/31/21 09:00 02/05/21 08:06 Doxycycline Hyclate 100 Mg Tablet PO 03/03/21 08:59 100 mg DAILY ROMULO Administration Epoetin Arturo-epbx 10,000 units 02/05/21 06:39 Epoetin Arturo-Epbx 10,000 Units/Ml Vial IV PUSH MOWEFR ROMULO Gabapentin 100 mg 02/01/21 21:00 02/04/21 22:27 Gabapentin 100 Mg Capsule
[2021-02-05] MEDS: ALPRAZolam (*CRX) 0.25 MG TABLET PO (12:28)
[2021-02-05] MEDS: traMADol HCL (*CRX) 25 MG TABLET PO (12:28)
--- NOTE | 2021-02-05 13:13 | PM.IMPN ---
Progress Note: A&P Assessment and Plan (1) Cellulitis and abscess of buttock: Code(s): L02.31 - Cutaneous abscess of buttock; L03.317 - Cellulitis of buttock Status: Acute Assessment and Plan: Patient has been on imipenem since 02/01/21 and vancomycin -white blood cell count is still elevated at 23,000. Pt has been afebrile. -DEYVI Clayton from the wound care center saw the patient at bedside and there are concern for abscesses -will obtain ultrasound -surgery consulted -blood cultures negative (2) ESRD on dialysis: Code(s): N18.6 - End stage renal disease; Z99.2 - Dependence on renal dialysis Status: Acute Assessment and Plan: Plan for dialysis today, this should correct her sodium -she typically goes Wednesday and Wednesday (3) Hypertension: Code(s): I10 - Essential (primary) hypertension Status: Chronic Assessment and Plan: Last blood pressure was 132/58 -continue carvedilol, nifedipine and lisinopril -BP on admission 206/89, hypertensive urgency which is resolved (chest pain resolved) (4) CHF (congestive heart failure): Code(s): I50.9 - Heart failure, unspecified Status: Chronic Assessment and Plan: Appears euvolemic at this time -Echo EF of 55% with grade 1 diastolic dysfunction -Continue with Coreg -Cardiology was previously consulted and signed off -continue aspirin and atorvastatin at discharge -patient will need to follow up with a oncology pharmacist in this area since she moved from [place] ago and does not have one (5) DM2 (diabetes mellitus, type 2): Code(s): E11.9 - Type 2 diabetes mellitus without complications Status: Chronic Assessment and Plan: Last glucose 132 -continue sliding scale insulin -continue Accu-Cheks (6) V-tach: Code(s): I47.2 - Ventricular tachycardia Status: Acute Assessment and Plan: Nonsustained episodes of V-tach 16 beats earlier in the stay -no episodes noted on recent telemetry -continue Coreg -cardiology was consulted Time Spent With Patient Time with patient: 25 - 35 minutes Subjective Date/time seen: 02/05/21 13:13 Interval history: Pt is a 55-year-old female here for hidradenitis with infection. Patient was seen today and states her pain is controlled with the pain medication. She is having more discharge and pain than typical but is overall feeling okay. She does have some shortness of breath that she has had for a couple months. She says it can be all the time and when she lays flat, sits up, and walks around. It is not distressing to her but she notices it. She had no chest pain with this. He is eating and drinking okay without diarrhea or constipation. No history of blood clots Review of Systems Review of Systems: All systems reviewed & are unremarkable except as noted in HPI and below Exam Narrative: General: Well developed well nourished patient in NAD HEENT: normocephalic, IJ intact to the right Neck: supple Neuro: Alert and oriented x4 CV:RRR Resp:CTA--no crackles, rhonchi or wheezing Abd: Soft, non distended. No pain to palpation. Positive bowel sounds Extremities: No swelling, erythema, or pain to palpation. Buttocks: Multiple areas of discharge with tracks. To areas of focus that could be possible abscesses. Seen with the Wound RN, please see her notes. Objective Data Vital Signs Vital Signs: Vital Signs - 24 hr 02/04/21 14:00 02/04/21 16:00 02/04/21 20:00 Temperature 97.6 F Pulse Rate 69 84 72 Respiratory Rate 16 Blood Pressure 136/62 Pulse Oximetry 100 02/04/21 21:52 02/04/21 22:27 02/05/21 00:00 Temperature 98 F Pulse Rate 79 79 77 Respiratory Rate 12 Blood Pressure 132/55 L Pulse Oximetry 98 02/05/21 04:00 02/05/21 05:09 02/05/21 08:00 Temperature 97 F L Pulse Rate 82 76 85 Respiratory Rate 12 Blood Pressure 132/58 L Pulse Oximetry 96
[2021-02-05] MEDS: SODIUM CHLORIDE 0.9% IV 1,000 ML 999 ML IV CONT (14:37)
[2021-02-05] MEDS: EPOETIN ALFA-EPBX 10,000 UNITS/ML VIAL 10000 UNITS IV PUSH (14:37)
[2021-02-05] MEDS: HEPARIN SODIUM 1,000 UNITS/ML VIAL 500 UNITS IV PUSH ×2 (14:38)
[2021-02-05] MEDS: HEPARIN SODIUM 1,000 UNITS/ML VIAL 1000 UNITS IV PUSH (14:38)
[2021-02-05 17:48] LABS: Glucose Point of Care 93 mg/dl (65-105)
[2021-02-05 19:09] LABS: Vancomycin Random 20.9 ug/mL (10-20)
[2021-02-05] MEDS: GABAPENTIN 100 MG CAPSULE PO (20:42)
[2021-02-05 21:46] LABS: Glucose Point of Care 168 mg/dl (65-105)
[2021-02-06] VITALS (11 sets, daily range): BP systolic 132–143; BP diastolic 52–62; PULSE 71–85; RESP 18–20; TEMP 36.3–36.6; O2SAT 98–99
[2021-02-06] MEDS: traMADol HCL (*CRX) 25 MG TABLET PO ×2 (00:14→20:32)
[2021-02-06] MEDS: CENTRAL LINE FLUSH 10 ML IV PUSH ×3 (03:49→22:10)
[2021-02-06 04:03] LABS: Basophils Absolute Auto 0.1 K/mm3 (0.0-0.1); Basophils Percent Auto 0.4 % (0.2-1.2); Eosinophils Absolute Auto 0.4 K/mm3 (0-0.3); Eosinophils Percent Auto 1.6 % (0-4.4); Hematocrit 27.8 % (37.0-47.0); Hemoglobin 8.9 g/dL (12.0-15.0); Immature Granulocyte Absolute 0.21 K/mm3 (0.00-0.031); Immature Granulocyte Percent A 0.8 % (0-0.5); Lymphocytes Absolute Auto 3.52 K/mm3 (0.9-3.2); Lymphocytes Percent Auto 13.5 % (18.3-44.2); Mean Corpuscular Volume 96.9 fl (80-100); Mean Platelet Volume 9.7 fl (7.4-10.4); Monocytes Absolute Auto 1.3 K/mm3 (0.1-0.6); Monocytes Percent Auto 4.8 % (2.6-8.5); Neutrophils Absolute Auto 20.6 K/mm3 (1.3-6.7); Neutrophils Percent Auto 78.9 % (45.5-73.1); Platelet Count Result 342 k/mm3 (150-375); Red Blood Count 2.87 M/mm3 (4.2-5.4); Red Cell Distribution Width 16.1 % (11.5-14.5); White Blood Count 26.1 K/mm3 (4.5-10.0)
[2021-02-06 04:17] LABS: Albumin Level 2.5 g/dL (3.5-5.1); Anion Gap 7 mmol/L (8-16); Blood Urea Nitrogen 18 mg/dL (7-17); Calcium 8.2 mg/dL (8.4-10.2); Carbon Dioxide 29 mmol/L (22-30); Chloride 95 mmol/L (98-107); Estimated CRCL calculation 16 ml/min; Estimated Glomerular Filt Rate 13; Glucose 113 mg/dL (65-110); Phosphorus 3.4 mg/dL (2.5-4.5); Sodium 131 mmol/L (137-145)
[2021-02-06 04:37] LABS: CRP 12.8 mg/dL (<1.0)
[2021-02-06] MEDS: ACETAMINOPHEN 325 MG TABLET 650 MG PO ×3 (05:07→17:15)
[2021-02-06] MEDS: SIMETHICONE 80 MG TAB.CHEW PO (05:07)
[2021-02-06 05:38] LABS: Hepatitis B Core Ab Total Nonreactive (Nonreactive)
[2021-02-06 07:46] LABS: Glucose Point of Care 104 mg/dl (65-105)
[2021-02-06] MEDS: ASPIRIN 81 MG ENTERIC TABLET PO (09:26)
[2021-02-06] MEDS: NIFEdipine 30 MG TAB.ER.24 60 MG PO (09:26)
[2021-02-06] MEDS: ATORVASTATIN 20 MG TABLET PO (09:26)
[2021-02-06] MEDS: VITAMIN B CMPLX/VIT C/FOLIC AC 1 CAPSULE 1 CAP PO (09:26)
[2021-02-06] MEDS: HEPARIN SODIUM 5,000 UNITS/ML VIAL 5000 UNITS SUB-Q ×2 (09:27→20:22)
[2021-02-06] MEDS: PANTOPRAZOLE 40 MG TABLET PO (09:27)
[2021-02-06] MEDS: carvediloL 25 MG TABLET PO ×2 (09:27→20:22)
[2021-02-06] MEDS: lisinopriL 10 MG TABLET PO (09:27)
[2021-02-06 11:51] LABS: Glucose Point of Care 159 mg/dl (65-105)
--- NOTE | 2021-02-06 16:11 | P.PNNP_ITS ---
Progress Note: A&P Assessment and Plan (1) End stage renal disease: Code(s): N18.6 - End stage renal disease Status: Chronic Assessment and Plan: * HD finished yesterday. * Volume status looks good. * Potassium is looking good. (2) Cellulitis and abscess of buttock: Code(s): L02.31 - Cutaneous abscess of buttock; L03.317 - Cellulitis of buttock Status: Acute Assessment and Plan: * as demonstrated by physical exam and imaging studies * wound cultures mixed corina. * blood cx neg * ct showed no abscess. * on imipenem * wbc alexandra to 26.1. * General Surgery following (3) Chest pain: Code(s): R07.9 - Chest pain, unspecified Status: Acute Assessment and Plan: * Cardiology Saw. * On atorvastatin and aspirin. * Will follow up with her regulator tester. * continue aggressive medical mangement (multiple risk factors as already noted) (4) Hypertension: Code(s): I10 - Essential (primary) hypertension Status: Chronic Assessment and Plan: * Blood pressure well controlled. * She is on carvedilol, lisinopril, nifedipine. (5) DM2 (diabetes mellitus, type 2): Code(s): E11.9 - Type 2 diabetes mellitus without complications Status: Chronic Assessment and Plan: * follow accuchecks * on SSI Subjective Date/time seen: 02/06/21 16:11 Interval history: Alert. She feels okay today. lying flat in bed comfortably. She did go home because her white cell count alexandra again. Review of Systems Cardiovascular: Cardiovascular: Reports no additional cardiovascular complaints Respiratory: Respiratory: Reports no additional respiratory complaints Gastrointestinal: Gastrointestinal: Reports no additional gastrointestinal complaints Genitourinary: Genitourinary: Reports no additional female genitourinary complaints Exam Narrative: WDWN in NAD skin no rash head ncat lungs clear cor reg no rub abd BS+ nontender and soft ext no edema. Objective Data Vital Signs Vital Signs: Vital Signs - 24 hr 02/05/21 16:15 02/05/21 16:30 02/05/21 16:49 Temperature Pulse Rate 72 74 75 Respiratory Rate Blood Pressure 144/69 H 151/78 H 156/73 H Pulse Oximetry 02/05/21 17:00 02/05/21 19:50 02/05/21 20:00 Temperature 36.6 C 36.6 C Pulse Rate 78 85 85 Respiratory Rate 16 17 Blood Pressure 156/75 H 127/47 L Pulse Oximetry 100 02/05/21 20:42 02/06/21 00:00 02/06/21 03:26 Temperature 36.6 C Pulse Rate 85 81 82 Respiratory Rate 18 Blood Pressure 132/52 L Pulse Oximetry 98 02/06/21 04:00 02/06/21 08:00 02/06/21 09:27 Temperature Pulse Rate 85 77 85 Respiratory Rate Blood Pressure Pulse Oximetry 02/06/21 12:00 02/06/21 13:30 Temperature 36.3 C L Pulse Rate 83 71 Respiratory Rate 20 Blood Pressure 143/62 H Pulse Oximetry 99 Intake/Output Intake/Output: Intake & Output 02/03/21 02/04/21 02/05/21 02/06/21 23:59 23:59 23:59 23:59 Intake Total 1330 2260 1120 1940
--- NOTE | 2021-02-06 16:11 | PM.PNNEP ---
Progress Note: A&P Assessment and Plan (1) End stage renal disease: Code(s): N18.6 - End stage renal disease Status: Chronic Assessment and Plan: HD finished yesterday. Volume status looks good. Potassium is looking good. (2) Cellulitis and abscess of buttock: Code(s): L02.31 - Cutaneous abscess of buttock; L03.317 - Cellulitis of buttock Status: Acute Assessment and Plan: as demonstrated by physical exam and imaging studies wound cultures mixed corina. blood cx neg ct showed no abscess. on imipenem wbc alexandra to 26.1. General Surgery following (3) Chest pain: Code(s): R07.9 - Chest pain, unspecified Status: Acute Assessment and Plan: Cardiology Saw. On atorvastatin and aspirin. Will follow up with her neurosurgery spine physician. continue aggressive medical mangement (multiple risk factors as already noted) (4) Hypertension: Code(s): I10 - Essential (primary) hypertension Status: Chronic Assessment and Plan: Blood pressure well controlled. She is on carvedilol, lisinopril, nifedipine. (5) DM2 (diabetes mellitus, type 2): Code(s): E11.9 - Type 2 diabetes mellitus without complications Status: Chronic Assessment and Plan: follow accuchecks on SSI Subjective Date/time seen: 02/06/21 16:11 Interval history: Alert. She feels okay today. lying flat in bed comfortably. She did go home because her white cell count alexandra again. Review of Systems Cardiovascular: Cardiovascular: Reports no additional cardiovascular complaints Respiratory: Respiratory: Reports no additional respiratory complaints Gastrointestinal: Gastrointestinal: Reports no additional gastrointestinal complaints Genitourinary: Genitourinary: Reports no additional female genitourinary complaints Exam Narrative: WDWN in NAD skin no rash head ncat lungs clear cor reg no rub abd BS+ nontender and soft ext no edema. Objective Data Vital Signs Vital Signs: Vital Signs - 24 hr 02/05/21 16:15 02/05/21 16:30 02/05/21 16:49 Temperature Pulse Rate 72 74 75 Respiratory Rate Blood Pressure 144/69 H 151/78 H 156/73 H Pulse Oximetry 02/05/21 17:00 02/05/21 19:50 02/05/21 20:00 Temperature 36.6 C 36.6 C Pulse Rate 78 85 85 Respiratory Rate 16 17 Blood Pressure 156/75 H 127/47 L Pulse Oximetry 100 02/05/21 20:42 02/06/21 00:00 02/06/21 03:26 Temperature 36.6 C Pulse Rate 85 81 82 Respiratory Rate 18 Blood Pressure 132/52 L Pulse Oximetry 98 02/06/21 04:00 02/06/21 08:00 02/06/21 09:27 Temperature Pulse Rate 85 77 85 Respiratory Rate Blood Pressure Pulse Oximetry 02/06/21 12:00 02/06/21 13:30 Temperature 36.3 C L Pulse Rate 83 71 Respiratory Rate 20 Blood Pressure 143/62 H Pulse Oximetry 99 Intake/Output Intake/Output: Intake & Output 02/03/21 02/04/21 02/05/21 02/06/21 23:59 23:59 23:59 23:59 Intake Total 1330 2260 1120 1940 Output Total 1010 3000 Balance 320 2260 -1880 1940 Meds/Results Medications: Active Medications Generic Name Dose Route Start Last Admin Trade Name Freq PRN Reason Stop Dose Admin Acetaminophen 650 mg 01/31/21 03:42 02/06/21 09:30 Acetaminophen 325 Mg Tablet PO 650 mg Q6H PRN Administration Mild Pain (1-3) or Fever Alprazolam 0.25 mg 02/01/21 13:03 02/05/21 12:28 Alprazolam (*Crx) 0.25 Mg Tablet PO 0.25 mg BID PRN Administration Anxiety Aspirin 81 mg 02/01/21 09:00 02/06/21 09:26 Aspirin 81 Mg Enteric Tablet PO 81 mg QAM ROMULO Administration Atorvastatin Calcium 20 mg 02/01/21 09:00 02/06/21 09:26 Atorvastatin 20 Mg Tablet PO 20 mg DAILY ROMULO Administration Carvedilol 25 mg 01/31/21 11:50 02/06/21 09:27 Carvedilol 25 Mg Tablet PO 25 mg Q12HR ROMULO Administration Dextrose 12.5 gm 01/31/21 00:00 Dextrose 50% 25 Gm/50 Ml Syringe IV PUSH
[2021-02-06] MEDS: INSULIN ASPART (*BKC) 100 UNITS/ML SUB-Q (16:18)
[2021-02-06 16:21] LABS: Glucose Point of Care 209 mg/dl (65-105)
--- NOTE | 2021-02-06 17:23 | PM.IMPN ---
Progress Note: A&P Assessment and Plan (1) Cellulitis and abscess of buttock: Code(s): L02.31 - Cutaneous abscess of buttock; L03.317 - Cellulitis of buttock Status: Acute Assessment and Plan: Patient has been on imipenem since 02/01/21 and vancomycin -white blood cell count continues to be elevated. Repeat CT shows worsening infection -she has been on vancomycin and imipenem, I do not think changing antibiotics is beneficial at this time. She might need some of these areas opened up and packed since antibiotics may not be getting to the area efficiently. I spoke with Dr. Montoya about this who is going to evaluate her tomorrow. -blood cultures negative -repeat wound culture and add fungal cx (2) ESRD on dialysis: Code(s): N18.6 - End stage renal disease; Z99.2 - Dependence on renal dialysis Status: Acute Assessment and Plan: Plan for dialysis tomorrow -she typically goes Wednesday and Wednesday (3) Hypertension: Code(s): I10 - Essential (primary) hypertension Status: Chronic Assessment and Plan: Last blood pressure was 143/62 -continue carvedilol, nifedipine and lisinopril -BP on admission 206/89, hypertensive urgency which is resolved (chest pain resolved) (4) CHF (congestive heart failure): Code(s): I50.9 - Heart failure, unspecified Status: Chronic Assessment and Plan: Appears euvolemic at this time -Echo EF of 55% with grade 1 diastolic dysfunction -Continue with Coreg -Cardiology was previously consulted and signed off -continue aspirin and atorvastatin at discharge -patient will need to follow up with a financial services counselor in this area since she moved from [place] and does not have one (5) DM2 (diabetes mellitus, type 2): Code(s): E11.9 - Type 2 diabetes mellitus without complications Status: Chronic Assessment and Plan: Last glucose 209 -continue sliding scale insulin -continue Accu-Cheks (6) V-tach: Code(s): I47.2 - Ventricular tachycardia Status: Acute Assessment and Plan: Nonsustained episodes of V-tach 16 beats earlier in the stay -no episodes noted on recent telemetry -continue Coreg -cardiology was consulted (7) REY (dyspnea on exertion): Code(s): R06.00 - Dyspnea, unspecified Status: Acute Assessment and Plan: Persistent x 1 month -will obtain CTA early tomorrow before dialysis -will assess for nodule from the initial CXR Additional Plan No other source of infection identified. IJ site looks good. No concerns for PNA or UTI. Subjective Date/time seen: 02/06/21 17:23 Interval history: Pt is a 55-year-old female here for hidradenitis with infection. Patient was seen today and states she feels okay. She is bummed that she is still in the hospital. She continues to have dyspnea on exertion with any movement. This is been going on for a month. No chest pain. She continues to have drainage from her backside. She denies nausea, vomiting, fevers or chills. She is eating and drinking okay. Exam Narrative: General: Well developed well nourished patient in NAD HEENT: normocephalic, IJ intact to the right Neck: supple Neuro: Alert and oriented x4 CV:RRR Resp:CTA--no crackles, rhonchi or wheezing Abd: Soft, non distended. No pain to palpation. Positive bowel sounds Extremities: No swelling, erythema, or pain to palpation. Buttocks: Multiple areas of discharge with tracks. Please see wound care notes Objective Data Vital Signs Vital Signs: Vital Signs - 24 hr 02/05/21 19:50 02/05/21 20:00 02/05/21 20:42 Temperature 97.8 F Pulse Rate 85 85 85 Respiratory Rate 17 Blood Pressure 127/47 L Pulse Oximetry 100 02/06/21 00:00 02/06/21 03:26 02/06/21 04:00 Temperature 98 F Pulse Rate 81 82 85 Respiratory Rate 18 Blood Pressure 132/52 L Pulse Oximetry 98 02/06/21 08:00 02/06/21 09:27
[2021-02-06] MEDS: GABAPENTIN 100 MG CAPSULE PO (20:22)
[2021-02-06 20:52] LABS: Glucose Point of Care 139 mg/dl (65-105)
[2021-02-07] VITALS (27 sets, daily range): BP systolic 139–159; BP diastolic 64–78; PULSE 67–81; RESP 16–20; TEMP 36.1–37; O2SAT 98–100
[2021-02-07] MEDS: CENTRAL LINE FLUSH 10 ML IV PUSH ×3 (05:06→21:03)
[2021-02-07 05:19] LABS: Basophils Absolute Auto 0.1 K/mm3 (0.0-0.1); Basophils Percent Auto 0.3 % (0.2-1.2); Eosinophils Absolute Auto 0.4 K/mm3 (0-0.3); Eosinophils Percent Auto 1.9 % (0-4.4); Hematocrit 28.4 % (37.0-47.0); Immature Granulocyte Percent A 0.9 % (0-0.5); Lymphocytes Percent Auto 13.9 % (18.3-44.2); Mean Corpuscular HGB Conc 31.7 g/dl (32-36); Mean Corpuscular Hemoglobin 30.7 pg (26-34); Mean Corpuscular Volume 96.9 fl (80-100); Mean Platelet Volume 9.9 fl (7.4-10.4); Monocytes Absolute Auto 1.1 K/mm3 (0.1-0.6); Monocytes Percent Auto 4.8 % (2.6-8.5); Neutrophils Absolute Auto 17.4 K/mm3 (1.3-6.7); Neutrophils Percent Auto 78.2 % (45.5-73.1); Platelet Count Result 340 k/mm3 (150-375); Red Blood Count 2.93 M/mm3 (4.2-5.4); White Blood Count 22.3 K/mm3 (4.5-10.0)
[2021-02-07 05:36] LABS: Alanine Aminotransferase 7 U/L (4-35); Albumin Level 2.5 g/dL (3.5-5.1); Alkaline Phosphatase 177 U/L (38-126); Anion Gap 6 mmol/L (8-16); Aspartate Amino Transferase 17 U/L (14-36); Bilirubin,Total 0.5 mg/dL (0.2-1.3); Blood Urea Nitrogen 26 mg/dL (7-17); Calcium 8.7 mg/dL (8.4-10.2); Carbon Dioxide 27 mmol/L (22-30); Chloride 95 mmol/L (98-107); Estimated CRCL calculation 12 ml/min; Estimated Glomerular Filt Rate 10; Glucose 115 mg/dL (65-110); Potassium 4.2 mmol/L (3.4-5.0); Sodium 128 mmol/L (137-145)
[2021-02-07] MEDS: traMADol HCL (*CRX) 25 MG TABLET PO ×3 (06:25→21:02)
[2021-02-07] MEDS: ALPRAZolam (*CRX) 0.25 MG TABLET PO (06:26)
[2021-02-07 08:01] LABS: Glucose Point of Care 104 mg/dl (65-105)
[2021-02-07] MEDS: SIMETHICONE 80 MG TAB.CHEW PO (08:38)
--- NOTE | 2021-02-07 10:36 | PM.IMPN ---
Progress Note: A&P Assessment and Plan (1) Cellulitis and abscess of buttock: Code(s): L02.31 - Cutaneous abscess of buttock; L03.317 - Cellulitis of buttock Status: Acute Assessment and Plan: Patient has been on imipenem since 02/01/21 and vancomycin -white blood cell count continues to be elevated but slightly improved today. Repeat CT shows worsening infection -she has been on vancomycin and imipenem, I do not think changing antibiotics is beneficial at this time. She might need some of these areas opened up and packed since antibiotics may not be getting to the area efficiently. I spoke with Dr. Montoya 02/06/21 about this who is going to evaluate her again. -blood cultures negative -repeat wound culture and fungal cx pending. (2) ESRD on dialysis: Code(s): N18.6 - End stage renal disease; Z99.2 - Dependence on renal dialysis Status: Acute Assessment and Plan: Currently undergoing dialysis -she typically goes Wednesday and Wednesday (3) Hypertension: Code(s): I10 - Essential (primary) hypertension Status: Chronic Assessment and Plan: Last blood pressure was 149/70 -continue carvedilol, nifedipine and lisinopril -BP on admission 206/89, hypertensive urgency which is resolved (chest pain resolved) (4) CHF (congestive heart failure): Code(s): I50.9 - Heart failure, unspecified Status: Chronic Assessment and Plan: Appears euvolemic at this time -Echo EF of 55% with grade 1 diastolic dysfunction -Continue with Coreg -Cardiology was previously consulted and signed off -continue aspirin and atorvastatin at discharge -patient will need to follow up with a maintenance supervisor mechanical in this area since she moved from [place] and does not have one (5) DM2 (diabetes mellitus, type 2): Code(s): E11.9 - Type 2 diabetes mellitus without complications Status: Chronic Assessment and Plan: Last glucose 104 -continue sliding scale insulin -continue Accu-Cheks (6) V-tach: Code(s): I47.2 - Ventricular tachycardia Status: Acute Assessment and Plan: Nonsustained episodes of V-tach 16 beats earlier in the stay -no episodes noted on recent telemetry -continue Coreg -cardiology was consulted (7) REY (dyspnea on exertion): Code(s): R06.00 - Dyspnea, unspecified Status: Acute Assessment and Plan: Persistent x 1 month -await CTA. Additional Plan No other source of infection identified. IJ site looks good. No concerns for PNA or UTI. Subjective Date/time seen: 02/07/21 10:36 Interval history: Pt is a 55-year-old female here for hidradenitis with infection. Patient was seen today and states she feels okay. She continues to have pain to her bottom which is worse during dialysis since she has lay in one spot. She continues to have dyspnea on exertion with any movement that is unchanged. This is been going on for a month. No chest pain. She continues to have drainage from her backside. She denies nausea, vomiting, fevers or chills. She is eating and drinking okay. RN states she is walking indepentently. Exam Narrative: General: Well developed well nourished patient in NAD HEENT: normocephalic, IJ intact to the right Neck: supple Neuro: Alert and oriented x4 CV:RRR Resp:CTA--no crackles, rhonchi or wheezing Abd: Soft, non distended. No pain to palpation. Positive bowel sounds Extremities: No swelling, erythema, or pain to palpation. Buttocks: Multiple areas of discharge with tracks. Please see wound care notes Objective Data Vital Signs Vital Signs: Vital Signs - 24 hr 02/06/21 12:00 02/06/21 13:30 02/06/21 16:00 Temperature 97.4 F L Pulse Rate 83 71 74 Respiratory Rate 20 Blood Pressure 143/62 H Pulse Oximetry 99 02/06/21 20:00 02/06/21 20:22 02/06/21 22:00 Temperature 97.8 F Pulse Rate 84 76 76 Respiratory Rate 20 Blood Pr
[2021-02-07] MEDS: SODIUM CHLORIDE 0.9% IV 1,000 ML 999 ML IV CONT (10:37)
--- NOTE | 2021-02-07 11:06 | PCNWS ---
Weekly nutritional screen. Patient is tolerating current diet with adequate intake. No weight loss reported. No nutritional needs at this time.
--- NOTE | 2021-02-07 11:45 | PM.PNNEP ---
Progress Note: A&P Assessment and Plan (1) End stage renal disease: Code(s): N18.6 - End stage renal disease Status: Chronic Assessment and Plan: HD today and continue M// schedule electrolytes, volume status, and clearance acceptable (2) Cellulitis and abscess of buttock: Code(s): L02.31 - Cutaneous abscess of buttock; L03.317 - Cellulitis of buttock Status: Acute Assessment and Plan: as demonstrated by physical exam and imaging studies wound cultures with mixed corina and blood culture negative imaging with discrete abscess or fluid collection on antibiotics General Surgery following - no need for surgical intervention at this time (3) Chest pain: Code(s): R07.9 - Chest pain, unspecified Status: Acute Assessment and Plan: Cardiology has seen on atorvastatin and aspirin. to follow up with her mail distributor on discharge continue aggressive medical management (multiple risk factors as already noted) (4) Hypertension: Code(s): I10 - Essential (primary) hypertension Status: Chronic Assessment and Plan: blood pressure well controlled. continues current medications (5) DM2 (diabetes mellitus, type 2): Code(s): E11.9 - Type 2 diabetes mellitus without complications Status: Chronic Assessment and Plan: follow accuchecks on SSI Will continue to follow. Subjective Date/time seen: 02/07/21 11:45 Chart reviewed - assuming care from Dr. Meléndez; tolerating dialysis treatment at the time of my visit (seen on HD at 11:30am); still with some pain and ongoing drainage from right buttocks area; no other acute issues or complaints voiced; no events overnight or earlier this morning. Exam Narrative: General: WD/WN AA female in NAD Heart: normal S1 and S2; no rub Lungs: clear to auscultation Abdomen: soft, nontender, nondistended, positive bowel sounds Extremities: no cyanosis or clubbing; no edema Skin: warm and dry Objective Data Vital Signs Vital Signs: Vital Signs Temp Pulse Resp BP Pulse Ox 02/07/21 11:40 69 157/74 H 02/07/21 11:25 71 157/69 H 02/07/21 11:10 72 148/71 H 02/07/21 10:50 70 149/71 H 02/07/21 10:35 70 153/69 H 02/07/21 10:20 70 149/70 H 02/07/21 10:05 70 149/73 H 02/07/21 09:50 69 152/75 H 02/07/21 09:35 69 149/76 H 02/07/21 09:20 68 150/78 H 02/07/21 09:06 72 147/77 H 02/07/21 08:53 36.8 C 76 16 149/75 H 02/07/21 08:00 72 02/07/21 06:00 36.1 C L 72 20 139/64 98 02/07/21 04:00 67 02/07/21 00:00 77 02/06/21 22:00 36.6 C 76 20 140/59 L 99 02/06/21 20:22 76 02/06/21 20:00 84 02/06/21 16:00 74 Intake/Output Intake/Output: Intake & Output 02/04/21 02/05/21 02/06/21 02/07/21 23:59 23:59 23:59 23:59 Intake Total 2260 1120 3130 100 Output Total 3000 3000 Balance 2260 -1880 3130 -2900 Meds/Results Medications: Active Medications Generic Name Dose Route Start Last Admin Trade Name Freq PRN Reason Stop Dose Admin Acetaminophen 650 mg 01/31/21 03:42 02/07/21 12:55 Acetaminophen 325 Mg Tablet PO 650 mg Q6H PRN Administration Mild Pain (1-3) or Fever Alprazolam 0.25 mg 02/01/21 13:03 02/07/21 06:26 Alprazolam (*Crx) 0.25 Mg Tablet PO 0.25 mg BID PRN Administration Anxiety Aspirin 81 mg 02/01/21 09:00 02/07/21 12:52 Aspirin 81 Mg Enteric Tablet PO 81 mg QAM ROMULO Administration Atorvastatin Calcium 20 mg 02/01/21 09:00 02/07/21 12:52 Atorvastatin 20 Mg Tablet PO 20 mg DAILY ROMULO Administration Carvedilol 25 mg 01/31/21 11:50 02/07/21 12:52 Carvedilol 25 Mg Tablet PO 25 mg Q12HR ROMULO Administration Dextrose 12.5 gm 01/31/21 00:00 Dextrose 50% 25 Gm/50 Ml Syringe IV PUSH PRN PRN Hypoglycemia Protocol Diphenhydramine HCl 50 mg 02/03/21 03:17 02/03/21 03:24 Dip
[2021-02-07] MEDS: NIFEdipine 30 MG TAB.ER.24 60 MG PO (12:52)
[2021-02-07] MEDS: VITAMIN B CMPLX/VIT C/FOLIC AC 1 CAPSULE 1 CAP PO (12:52)
[2021-02-07] MEDS: ATORVASTATIN 20 MG TABLET PO (12:52)
[2021-02-07] MEDS: PANTOPRAZOLE 40 MG TABLET PO (12:52)
[2021-02-07] MEDS: ASPIRIN 81 MG ENTERIC TABLET PO (12:52)
[2021-02-07] MEDS: carvediloL 25 MG TABLET PO ×2 (12:52→21:02)
[2021-02-07] MEDS: HEPARIN SODIUM 5,000 UNITS/ML VIAL 5000 UNITS SUB-Q ×2 (12:54→21:02)
[2021-02-07] MEDS: lisinopriL 10 MG TABLET PO (12:54)
[2021-02-07] MEDS: ACETAMINOPHEN 325 MG TABLET 650 MG PO (12:55)
[2021-02-07 13:05] LABS: Glucose Point of Care 89 mg/dl (65-105)
[2021-02-07] MEDS: SACCHAROMYCES BOULARDII 250 MG CAPSULE PO (16:23)
[2021-02-07 16:26] LABS: Glucose Point of Care 127 mg/dl (65-105)
[2021-02-07 19:49] LABS: Vancomycin Random 22.5 ug/mL (10-20)
[2021-02-07] MEDS: GABAPENTIN 100 MG CAPSULE PO (21:02)
[2021-02-07 22:16] LABS: Glucose Point of Care 123 mg/dl (65-105)
[2021-02-08] VITALS (11 sets, daily range): BP systolic 121–143; BP diastolic 49–62; PULSE 62–86; RESP 16–18; TEMP 36–36.6; O2SAT 97–100
[2021-02-08] MEDS: CENTRAL LINE FLUSH 10 ML IV PUSH ×3 (05:03→20:59)
[2021-02-08 05:18] LABS: Basophils Absolute Auto 0.1 K/mm3 (0.0-0.1); Basophils Percent Auto 0.5 % (0.2-1.2); Eosinophils Absolute Auto 0.5 K/mm3 (0-0.3); Eosinophils Percent Auto 2.5 % (0-4.4); Hematocrit 29.1 % (37.0-47.0); Hemoglobin 9.2 g/dL (12.0-15.0); Immature Granulocyte Absolute 0.16 K/mm3 (0.00-0.031); Immature Granulocyte Percent A 0.8 % (0-0.5); Lymphocytes Absolute Auto 3.35 K/mm3 (0.9-3.2); Lymphocytes Percent Auto 16.1 % (18.3-44.2); Mean Corpuscular HGB Conc 31.6 g/dl (32-36); Mean Corpuscular Hemoglobin 30.3 pg (26-34); Mean Corpuscular Volume 95.7 fl (80-100); Mean Platelet Volume 9.7 fl (7.4-10.4); Monocytes Absolute Auto 1.1 K/mm3 (0.1-0.6); Monocytes Percent Auto 5.1 % (2.6-8.5); Neutrophils Absolute Auto 15.6 K/mm3 (1.3-6.7); Platelet Count Result 361 k/mm3 (150-375); Red Blood Count 3.04 M/mm3 (4.2-5.4); Red Cell Distribution Width 16.2 % (11.5-14.5); White Blood Count 20.8 K/mm3 (4.5-10.0)
[2021-02-08 05:40] LABS: Anion Gap 3 mmol/L (8-16); Blood Urea Nitrogen 18 mg/dL (7-17); CRP 11.8 mg/dL (<1.0); Calcium 8.5 mg/dL (8.4-10.2); Carbon Dioxide 34 mmol/L (22-30); Chloride 94 mmol/L (98-107); Estimated CRCL calculation 16 ml/min; Estimated Glomerular Filt Rate 13; Glucose 99 mg/dL (65-110); Potassium 4.2 mmol/L (3.4-5.0); Sodium 131 mmol/L (137-145)
[2021-02-08 07:49] LABS: Glucose Point of Care 78 mg/dl (65-105)
[2021-02-08] MEDS: ASPIRIN 81 MG ENTERIC TABLET PO (09:11)
[2021-02-08] MEDS: ATORVASTATIN 20 MG TABLET PO (09:12)
[2021-02-08] MEDS: lisinopriL 10 MG TABLET PO (09:12)
[2021-02-08] MEDS: VITAMIN B CMPLX/VIT C/FOLIC AC 1 CAPSULE 1 CAP PO (09:12)
[2021-02-08] MEDS: PANTOPRAZOLE 40 MG TABLET PO (09:12)
[2021-02-08] MEDS: SACCHAROMYCES BOULARDII 250 MG CAPSULE PO ×2 (09:12→17:16)
[2021-02-08] MEDS: NIFEdipine 30 MG TAB.ER.24 60 MG PO (09:12)
[2021-02-08] MEDS: carvediloL 25 MG TABLET PO (09:12)
[2021-02-08] MEDS: HEPARIN SODIUM 5,000 UNITS/ML VIAL 5000 UNITS SUB-Q ×2 (09:16→20:58)
[2021-02-08] MEDS: ACETAMINOPHEN 325 MG TABLET 650 MG PO ×2 (09:25→15:46)
--- NOTE | 2021-02-08 11:09 | PM.IMPN ---
Progress Note: A&P Assessment and Plan (1) Junctional rhythm: Code(s): I49.8 - Other specified cardiac arrhythmias Status: Acute Assessment and Plan: Telemetry shows that the patient intermittently goes into what appears to be an accelerated junctional rhythm. -obtain EKG since she is currently in the rhythm -spoke with cardiology, they are going to see her -hx of cardiac stents with new onset REY for the last month. -Continue coreg, aspirin, and lisinopril -consider stress test (2) Cellulitis and abscess of buttock: Code(s): L02.31 - Cutaneous abscess of buttock; L03.317 - Cellulitis of buttock Status: Acute Assessment and Plan: Patient has been on imipenem since 02/01/21 and vancomycin -white blood cell count continues to be elevated but slightly improved today. Repeat CT shows worsening infection -she has been on vancomycin and imipenem, I do not think changing antibiotics is beneficial at this time. She might need some of these areas opened up and packed since antibiotics may not be getting to the area efficiently. I spoke with bo who is going to re-evaluate her -blood cultures negative -repeat wound culture without evidence of organisms at this time (3) ESRD on dialysis: Code(s): N18.6 - End stage renal disease; Z99.2 - Dependence on renal dialysis Status: Acute Assessment and Plan: Currently undergoing dialysis -she typically goes Wednesday and Wednesday (4) Hypertension: Code(s): I10 - Essential (primary) hypertension Status: Chronic Assessment and Plan: Last blood pressure was 143/62 -continue carvedilol, nifedipine and lisinopril -BP on admission 206/89, hypertensive urgency which is resolved (chest pain resolved) (5) CHF (congestive heart failure): Code(s): I50.9 - Heart failure, unspecified Status: Chronic Assessment and Plan: Appears euvolemic at this time -Echo EF of 55% with grade 1 diastolic dysfunction -Continue with Coreg -continue aspirin and atorvastatin at discharge -patient will need to follow up with a race starter in this area since she moved from [place] and does not have one (6) DM2 (diabetes mellitus, type 2): Code(s): E11.9 - Type 2 diabetes mellitus without complications Status: Chronic Assessment and Plan: Last glucose 112 -continue sliding scale insulin -continue Accu-Cheks (7) V-tach: Code(s): I47.2 - Ventricular tachycardia Status: Acute Assessment and Plan: Nonsustained episodes of V-tach 16 beats earlier in the stay -no episodes noted on recent telemetry but now in a junctional rhythm -continue Coreg -cardiology consulted (8) REY (dyspnea on exertion): Code(s): R06.00 - Dyspnea, unspecified Status: Acute Assessment and Plan: Persistent x 1 month -CTA without evidence of PE Additional Plan Check IJ placement with CXR. Pt thinks it moved. Subjective Date/time seen: 02/08/21 11:09 Interval history: Pt is a 55-year-old female here for hidradenitis with infection. Patient was seen today and says she intermittently has SOB with rest and activity now. She has no CP. She continues to have pain to her bottom which is unchanged. She denies nausea, vomiting, fevers or chills. She is eating and drinking okay. RN states she is walking independently. Exam Narrative: General: Well developed well nourished patient in NAD HEENT: normocephalic, IJ to the right Neck: supple Neuro: Alert and oriented x4 CV:RRR. tele shows that she goes in and out of an accelerated junctional rhythm which she is now currently in. Resp:CTA--no crackles, rhonchi or wheezing Abd: Soft, non distended. No pain to palpation. Positive bowel sounds Extremities: No swelling, erythema, or pain to palpation. Buttocks: Multiple areas of discharge with tracks. Please see wound care notes Objective
--- NOTE | 2021-02-08 11:25 | ECG_ITS ---
Measurements Intervals [place] Rate: 84 P: -62 IA: 195 QRS: 99 QRSD: 164 T: -65 QT: 413 QTc: 489 Interpretive Statements ACCELERATED JUNCTIONAL RHYTHM RIGHT AXIS DEVIATION INTRAVENTRICULAR CONDUCTION DELAY CONSIDER HIGH LATERAL INFARCT, AGE INDETERMINATE ST-T WAVE ABNORMALITY IN ANTEROLAT/INF LEADS- CONSIDER ISCHEMIA ABNORMAL ECG Electronically Signed On 02-08-2021 14:37:09 BLOCK PILER by Bruce Henry D.O.
[2021-02-08 11:26] LABS: Glucose Point of Care 112 mg/dl (65-105)
--- NOTE | 2021-02-08 11:46 | PM.PNCARD ---
Progress Note: A&P Assessment and Plan (1) Chest pain: Code(s): R07.9 - Chest pain, unspecified Status: Acute Assessment and Plan: Resolved, atypical, negative serial cardiac enzymes. Although she has a history of CAD details in this regard are not known. She reports a prior history of stents but has not been maintained on aspirin for unclear reasons ; aspirin resumed. Most likely secondary to hypertensive urgency presentation. Continue to monitor for recurrence. Continue medical therapy at this time with nifedipine, aspirin, atorvastatin. Will discuss noninvasive ischemic evaluation as an outpatient as appropriate after review of prior records. Will sign off and arrange for outpatient follow-up. (2) Hypertensive urgency: Code(s): I16.0 - Hypertensive urgency Status: Acute Assessment and Plan: Admitted with hypertensive urgency. Blood pressure much better continue lisinopril, carvedilol, nifedipine (3) Coronary artery disease: Code(s): I25.10 - Atherosclerotic heart disease of [place] coronary artery without angina pectoris Status: Acute Assessment and Plan: Reports prior history of stent implantation. continue aspirin 81 mg daily. Continue atorvastatin. LDL was 38 this admisison at goal. Obtain prior records from [place]. Further recommendations after review of these records. (4) Cellulitis and abscess of buttock: Code(s): L02.31 - Cutaneous abscess of buttock; L03.317 - Cellulitis of buttock Status: Acute Assessment and Plan: Her hospitalist service. (5) CHF (congestive heart failure): Code(s): I50.9 - Heart failure, unspecified Status: Chronic Assessment and Plan: Patient is not in acute decompensated heart failure at this time. Volume management per hemodialysis. (6) ESRD on dialysis: Code(s): N18.6 - End stage renal disease; Z99.2 - Dependence on renal dialysis Status: Acute Assessment and Plan: Per nephrology. Patient feeling much better after hemodialysis. (7) Junctional rhythm: Code(s): I49.8 - Other specified cardiac arrhythmias Status: Acute Assessment and Plan: steady EKG. rhythm appears to be An accelerated idioventricular rhythm. She is hemodynamically stable with this rhythm and is going in and out . Will reduce her carvedilol hopefully to allow her sinoatrial node to take over. She needs ischemic workup as an inpatient Subjective Date/time seen: 12/25/21 11:46 Interval history: Pt is a 55-year-old female here for hidradenitis with infection. Date of service 02/08/2021: Re-consulted because of abnormal rhythm. Patient is going in and out of a wider complex rhythm that has a left bundle-branch morphology. She does feel short of breath at times but otherwise is sitting in her room comfortable while in this rhythm without any complaints of chest pain. She does feel tired but she has felt tired for a month she states. Review of Systems Review of Systems: All systems reviewed & are unremarkable except as noted in HPI and below Constitutional: Constitutional: Reports as per HPI, Reports no additional constitutional complaints, Reports fatigue and Reports weakness Eyes: Eyes: Reports as per HPI and Reports no additional eye complaints ENT: Reports system reviewed and no additional complaints, except as documented, Reports as per HPI and Denies epistaxis Cardiovascular: Cardiovascular: Reports as per HPI, Reports no additional cardiovascular complaints, Denies chest pain, Denies diaphoresis, Denies pedal edema, Denies leg edema, Denies palpitations, Denies dyspnea and Reports dyspnea on exertion Respiratory: Respiratory: Reports as per HPI, Reports no additional respiratory complaints, Denies hemoptysis, Denies dyspnea and Reports dyspnea on exertion Gastrointestinal: Gastrointestinal: Reports as per HPI, Reports no add
--- NOTE | 2021-02-08 12:15 | PM.PNNEP ---
Progress Note: A&P Assessment and Plan (1) End stage renal disease: Code(s): N18.6 - End stage renal disease Status: Chronic Assessment and Plan: HD yesterday and continue M/W/ schedule electrolytes, volume status, and clearance acceptable (2) Cellulitis and abscess of buttock: Code(s): L02.31 - Cutaneous abscess of buttock; L03.317 - Cellulitis of buttock Status: Acute Assessment and Plan: as demonstrated by physical exam and imaging studies wound cultures with mixed corina and blood culture negative imaging without discrete abscess or fluid collections on antibiotics General Surgery following - no need for surgical intervention at this time (3) Chest pain: Code(s): R07.9 - Chest pain, unspecified Status: Acute Assessment and Plan: Cardiology has seen on atorvastatin and aspirin. to follow up with her cardiology on discharge continue aggressive medical management (multiple risk factors as already noted) (4) Hypertension: Code(s): I10 - Essential (primary) hypertension Status: Chronic Assessment and Plan: blood pressure well controlled. continues current medications (5) DM2 (diabetes mellitus, type 2): Code(s): E11.9 - Type 2 diabetes mellitus without complications Status: Chronic Assessment and Plan: follow accuchecks on SSI Will continue to follow. Subjective Date/time seen: 02/08/21 12:15 Still with ongoing drainage from right buttocks area; major complaint is that of shortness of breath with both at rest and with activity (but denies any chest pain); pain in right buttocks under reasonable control; no issues/events overnight or earlier this AM. Exam Narrative: General: WD/WN AA female in NAD Heart: normal S1 and S2; no rub Lungs: clear to auscultation Abdomen: soft, nontender, nondistended, positive bowel sounds Extremities: no cyanosis or clubbing; no edema Skin: warm and intact Objective Data Vital Signs Vital Signs: Vital Signs Temp Pulse Resp BP Pulse Ox 02/08/21 12:00 78 02/08/21 09:12 85 02/08/21 08:00 79 02/08/21 06:00 36.6 C 77 18 143/62 H 97 02/08/21 04:00 75 02/08/21 00:00 77 02/07/21 22:00 36.6 C 80 20 143/67 H 98 02/07/21 21:02 78 02/07/21 20:00 76 20 100 Intake/Output Intake/Output: Intake & Output 02/05/21 02/06/21 02/07/21 02/08/21 23:59 23:59 23:59 23:59 Intake Total 1120 3130 1310 1340 Output Total 3000 3000 Balance -1880 3130 -1690 1340 Meds/Results Medications: Active Medications Generic Name Dose Route Start Last Admin Trade Name Freq PRN Reason Stop Dose Admin Acetaminophen 650 mg 01/31/21 03:42 02/08/21 15:46 Acetaminophen 325 Mg Tablet PO 650 mg Q6H PRN Administration Mild Pain (1-3) or Fever Alprazolam 0.25 mg 02/01/21 13:03 02/07/21 06:26 Alprazolam (*Crx) 0.25 Mg Tablet PO 0.25 mg BID PRN Administration Anxiety Aspirin 81 mg 02/01/21 09:00 02/08/21 09:11 Aspirin 81 Mg Enteric Tablet PO 81 mg QAM ROMULO Administration Atorvastatin Calcium 20 mg 02/01/21 09:00 02/08/21 09:12 Atorvastatin 20 Mg Tablet PO 20 mg DAILY ROMULO Administration Carvedilol 12.5 mg 02/08/21 21:00 Carvedilol 12.5 Mg Tablet PO Q12HR ROMULO Dextrose 12.5 gm 01/31/21 00:00 Dextrose 50% 25 Gm/50 Ml Syringe IV PUSH PRN PRN Hypoglycemia Protocol Diphenhydramine HCl 50 mg 02/03/21 03:17 02/03/21 03:24 Diphenhydramine Hcl Cap 25 Mg Capsule PO 50 mg Q6H PRN Administration Itching Epoetin Arturo-epbx 10,000 units 02/05/21 06:39 02/07/21 12:52 Epoetin Arturo-Epbx 10,000 Units/Ml Vial IV PUSH Not Given MOWEFR ROMULO Gabapentin 100 mg 02/01/21 21:00 02/07/21 21:02 Gabapentin 100 Mg Capsule PO 100 mg HS ROMULO Administration Glucagon 1 mg 01/31/21 00:00 Glucagon For Inj 1 Mg Vial IM PRN RI
--- NOTE | 2021-02-08 12:39 | PM.PNGS ---
Progress Note: A&P Assessment and Plan (1) Hidradenitis: Code(s): L73.2 - Hidradenitis suppurativa Status: Acute Assessment and Plan: Will start applying mupirocin ointment to wounds and use ABD pads to help collect drainage. She has multiple areas with purulent drainage, possibly could benefit from small I&D's over each area, but will ultimately need to see a green marketing specialist as this is going to continue to be a problem for patient. OK to discharge from surgical standpoint when other medical problems are resolved. (2) End stage renal disease: Code(s): N18.6 - End stage renal disease Status: Chronic (3) DM2 (diabetes mellitus, type 2): Code(s): E11.9 - Type 2 diabetes mellitus without complications Status: Chronic (4) CHF (congestive heart failure): Code(s): I50.9 - Heart failure, unspecified Status: Chronic Subjective Subjective Date/Time Seen: 02/08/21 12:39 Interval history: Patient still having pain around areas of hidradenitis. Doesn't feel like it's much better yet. No fevers. Exam Skin: Other: 5-6 areas of small wound openings with purulent drainage around right buttock. No significant surrounding erythema. Chronic induration and scarring from hidradenitis. Objective Data Vital Signs Vital Signs: Vital Signs - 24 hr 02/07/21 12:52 02/07/21 14:00 02/07/21 16:00 Temperature 36.4 C Pulse Rate 81 72 69 Respiratory Rate 20 Blood Pressure 150/66 H Pulse Oximetry 100 02/07/21 20:00 02/07/21 21:02 02/07/21 22:00 Temperature 36.6 C Pulse Rate 76 78 80 Respiratory Rate 20 20 Blood Pressure 143/67 H Pulse Oximetry 100 98 02/08/21 00:00 02/08/21 04:00 02/08/21 06:00 Temperature 36.6 C Pulse Rate 77 75 77 Respiratory Rate 18 Blood Pressure 143/62 H Pulse Oximetry 97 02/08/21 08:00 02/08/21 09:12 02/08/21 12:00 Temperature Pulse Rate 79 85 78 Respiratory Rate Blood Pressure Pulse Oximetry Intake/Output Intake/Output: Intake & Output 02/05/21 02/06/21 02/07/21/25/21 23:59 23:59 23:59 23:59 Intake Total 1120 3130 1310 1100 Output Total 3000 3000 Balance -1880 3130 -1690 1100 Meds/Results Medications: Active Medications Generic Name Dose Route Start Last Admin Trade Name Freq PRN Reason Stop Dose Admin Acetaminophen 650 mg 01/31/21 03:42 02/08/21 09:25 Acetaminophen 325 Mg Tablet PO 650 mg Q6H PRN Administration Mild Pain (1-3) or Fever Alprazolam 0.25 mg 02/01/21 13:03 02/07/21 06:26 Alprazolam (*Crx) 0.25 Mg Tablet PO 0.25 mg BID PRN Administration Anxiety Aspirin 81 mg 02/01/21 09:00 02/08/21 09:11 Aspirin 81 Mg Enteric Tablet PO 81 mg QAM ROMULO Administration Atorvastatin Calcium 20 mg 02/01/21 09:00 02/08/21 09:12 Atorvastatin 20 Mg Tablet PO 20 mg DAILY ROMULO Administration Carvedilol 12.5 mg 02/08/21 21:00 Carvedilol 12.5 Mg Tablet PO Q12HR ROMULO Dextrose 12.5 gm 01/31/21 00:00 Dextrose 50% 25 Gm/50 Ml Syringe IV PUSH PRN PRN Hypoglycemia Protocol Diphenhydramine HCl 50 mg 02/03/21 03:17 02/03/21 03:24 Diphenhydramine Hcl Cap 25 Mg Capsule PO 50 mg Q6H PRN Administration Itching Epoetin Arturo-epbx 10,000 units 02/05/21 06:39 02/07/21 12:52 Epoetin Arturo-Epbx 10,000 Units/Ml Vial IV PUSH Not Given MOWEFR ROMULO Gabapentin 100 mg 02/01/21 21:00 02/07/21 21:02 Gabapentin 100 Mg Capsule PO 100 mg HS ROMULO Administration Glucagon 1 mg 01/31/21 00:00 Glucagon For Inj 1 Mg Vial IM PRN PRN Hypoglycemia Protocol Glucose 15 gm 01/31/21 00:00 Glucose Oral Gel 15 Gm Of Glucse In 37.5 Gm Tube PO PRN PRN Hypoglycemia Protocol Heparin Sodium (Porcine) 5,000 units 02/01/21 21:00 02/08/21 09:16 Heparin Sodium 5,000 Units/Ml Vial SUB-Q 5,000 units Q12HR ROMULO Administration Dextrose 1,000 mls @ 100 mls/hr 01/31/
[2021-02-08] MEDS: MUPIROCIN 2% OINT 22 GM TUBE 1 APPLIC TOPICAL ×2 (14:05→17:16)
[2021-02-08] MEDS: SIMETHICONE 80 MG TAB.CHEW PO (15:46)
[2021-02-08 16:30] LABS: Glucose Point of Care 97 mg/dl (65-105)
[2021-02-08] MEDS: traMADol HCL (*CRX) 25 MG TABLET PO (20:57)
[2021-02-08] MEDS: GABAPENTIN 100 MG CAPSULE PO (20:58)
[2021-02-08] MEDS: carvediloL 12.5 MG TABLET PO (20:58)
[2021-02-08 21:10] LABS: Glucose Point of Care 179 mg/dl (65-105)
[2021-02-09] VITALS (12 sets, daily range): BP systolic 101–130; BP diastolic 46–70; PULSE 67–85; RESP 16–18; TEMP 36.2–36.6; O2SAT 98–99
[2021-02-09] MEDS: ACETAMINOPHEN 325 MG TABLET 650 MG PO ×2 (02:21→18:00)
[2021-02-09] MEDS: ONDANSETRON INJ 4 MG/2 ML VIAL IV PUSH (02:23)
[2021-02-09] MEDS: CENTRAL LINE FLUSH 20 ML IV PUSH (04:43)
[2021-02-09] MEDS: CENTRAL LINE FLUSH 10 ML IV PUSH ×3 (04:43→19:53)
[2021-02-09 05:05] LABS: Anion Gap 1 mmol/L (8-16); Blood Urea Nitrogen 23 mg/dL (7-17); Calcium 8.7 mg/dL (8.4-10.2); Carbon Dioxide 31 mmol/L (22-30); Chloride 96 mmol/L (98-107); Estimated CRCL calculation 12 ml/min; Estimated Glomerular Filt Rate 10; Glucose 119 mg/dL (65-110); Potassium 4.4 mmol/L (3.4-5.0); Sodium 128 mmol/L (137-145)
[2021-02-09] MEDS: SIMETHICONE 80 MG TAB.CHEW PO ×2 (05:17→18:00)
[2021-02-09 05:52] LABS: Basophils Absolute Auto 0.1 K/mm3 (0.0-0.1); Basophils Percent Auto 0.4 % (0.2-1.2); Eosinophils Absolute Auto 0.5 K/mm3 (0-0.3); Hematocrit 28.8 % (37.0-47.0); Immature Granulocyte Absolute 0.23 K/mm3 (0.00-0.031); Lymphocytes Absolute Auto 3.34 K/mm3 (0.9-3.2); Lymphocytes Percent Auto 14.9 % (18.3-44.2); Mean Corpuscular HGB Conc 31.3 g/dl (32-36); Mean Corpuscular Hemoglobin 30.4 pg (26-34); Mean Corpuscular Volume 97.3 fl (80-100); Mean Platelet Volume 10.1 fl (7.4-10.4); Monocytes Percent Auto 4.6 % (2.6-8.5); Neutrophils Absolute Auto 17.3 K/mm3 (1.3-6.7); Neutrophils Percent Auto 77.1 % (45.5-73.1); Platelet Count Result 372 k/mm3 (150-375); Red Blood Count 2.96 M/mm3 (4.2-5.4); Red Cell Distribution Width 16.2 % (11.5-14.5); White Blood Count 22.4 K/mm3 (4.5-10.0)
[2021-02-09 07:44] LABS: Glucose Point of Care 80 mg/dl (65-105)
--- NOTE | 2021-02-09 09:04 | PM.PNCARD ---
Progress Note: A&P Assessment and Plan (1) Chest pain: Code(s): R07.9 - Chest pain, unspecified Status: Acute Assessment and Plan: Resolved, atypical, negative serial cardiac enzymes. Although she has a history of CAD details in this regard are not known. She reports a prior history of stents but has not been maintained on aspirin for unclear reasons ; aspirin resumed. Most likely secondary to hypertensive urgency presentation. Continue to monitor for recurrence. Continue medical therapy at this time with nifedipine, aspirin, atorvastatin. Will discuss noninvasive ischemic evaluation as an outpatient as appropriate after review of prior records. Will sign off and arrange for outpatient follow-up. (2) Hypertensive urgency: Code(s): I16.0 - Hypertensive urgency Status: Acute Assessment and Plan: Admitted with hypertensive urgency. Blood pressure much better continue lisinopril, carvedilol, nifedipine (3) Coronary artery disease: Code(s): I25.10 - Atherosclerotic heart disease of [place] coronary artery without angina pectoris Status: Acute Assessment and Plan: Reports prior history of stent implantation. continue aspirin 81 mg daily. Continue atorvastatin. LDL was 38 this admisison at goal. Obtain prior records from [place]. Further recommendations after review of these records. (4) Cellulitis and abscess of buttock: Code(s): L02.31 - Cutaneous abscess of buttock; L03.317 - Cellulitis of buttock Status: Acute Assessment and Plan: Her hospitalist service. (5) CHF (congestive heart failure): Code(s): I50.9 - Heart failure, unspecified Status: Chronic Assessment and Plan: Patient is not in acute decompensated heart failure at this time. Volume management per hemodialysis. (6) ESRD on dialysis: Code(s): N18.6 - End stage renal disease; Z99.2 - Dependence on renal dialysis Status: Acute Assessment and Plan: Per nephrology. Patient feeling much better after hemodialysis. (7) Junctional rhythm: Code(s): I49.8 - Other specified cardiac arrhythmias Status: Acute Assessment and Plan: steady EKG. rhythm appears to be An accelerated idioventricular rhythm. She is hemodynamically stable with this rhythm and is going in and out . NPO after midnight for Lexiscan myocardial perfusion study in the morning Subjective Date/time seen: 02/09/21 09:04 Interval history: Pt is a 55-year-old female here for hidradenitis with infection. Date of service 02/08/2021: Re-consulted because of abnormal rhythm. Patient is going in and out of a wider complex rhythm that has a left bundle-branch morphology. She does feel short of breath at times but otherwise is sitting in her room comfortable while in this rhythm without any complaints of chest pain. She does feel tired but she has felt tired for a month she states. Date of service 02/09/2021: Still in and out of what appears to be accelerated junctional or accelerated idioventricular rhythm. She is asymptomatic. No chest pain or shortness of breath. Review of Systems Review of Systems: All systems reviewed & are unremarkable except as noted in HPI and below Constitutional: Constitutional: Reports as per HPI, Reports no additional constitutional complaints, Reports fatigue and Reports weakness Eyes: Eyes: Reports as per HPI and Reports no additional eye complaints ENT: Reports system reviewed and no additional complaints, except as documented, Reports as per HPI and Denies epistaxis Cardiovascular: Cardiovascular: Reports as per HPI, Reports no additional cardiovascular complaints, Denies chest pain, Denies diaphoresis, Denies pedal edema, Denies leg edema, Denies palpitations, Denies dyspnea and Reports dyspnea on exertion Respiratory: Respiratory: Reports as per HPI, Reports no additional respiratory complaints,
--- NOTE | 2021-02-09 09:07 | PM.PNGS ---
Progress Note: A&P Assessment and Plan (1) Hidradenitis: Code(s): L73.2 - Hidradenitis suppurativa Status: Acute Assessment and Plan: AM labs still pending. Continue current treatment with Mupirocin ointment, ABD pads, and oral doxycycline. OK to discharge from surgical standpoint. Will need to follow up with screening specialist. (2) End stage renal disease: Code(s): N18.6 - End stage renal disease Status: Chronic (3) DM2 (diabetes mellitus, type 2): Code(s): E11.9 - Type 2 diabetes mellitus without complications Status: Chronic (4) CHF (congestive heart failure): Code(s): I50.9 - Heart failure, unspecified Status: Chronic Subjective Subjective Date/Time Seen: 02/09/21 09:07 Interval history: Drainage about the same. Patient doing well. No fevers. No worsening pain or swelling. Exam Skin: Other: 5-6 areas of small wound openings with purulent drainage around right buttock. No significant surrounding erythema. Chronic induration and scarring from hidradenitis. Objective Data Vital Signs Vital Signs: Vital Signs - 24 hr 02/08/21 09:12 02/08/21 12:00 02/08/21 14:15 Temperature 36.6 C Pulse Rate 85 78 86 Respiratory Rate 16 Blood Pressure 121/61 Pulse Oximetry 100 02/08/21 16:00 02/08/21 19:47 02/08/21 20:00 Temperature 36.0 C L Pulse Rate 74 73 62 Respiratory Rate 16 Blood Pressure 129/49 L Pulse Oximetry 100 02/08/21 20:58 02/09/21 00:00 02/09/21 03:41 Temperature 36.2 C L Pulse Rate 73 80 80 Respiratory Rate 18 Blood Pressure 101/46 L Pulse Oximetry 98 02/09/21 04:00 Temperature Pulse Rate 80 Respiratory Rate Blood Pressure Pulse Oximetry Intake/Output Intake/Output: Intake & Output 02/06/21 02/07/21 02/08/21 02/09/21 23:59 23:59 23:59 23:59 Intake Total 3130 1310 2330 1100 Output Total 3000 Balance 3130 -1690 2330 1100 Meds/Results Medications: Active Medications Generic Name Dose Route Start Last Admin Trade Name Freq PRN Reason Stop Dose Admin Acetaminophen 650 mg 01/31/21 03:42 02/09/21 02:21 Acetaminophen 325 Mg Tablet PO 650 mg Q6H PRN Administration Mild Pain (1-3) or Fever Alprazolam 0.25 mg 02/01/21 13:03 02/07/21 06:26 Alprazolam (*Crx) 0.25 Mg Tablet PO 0.25 mg BID PRN Administration Anxiety Aspirin 81 mg 02/01/21 09:00 02/08/21 09:11 Aspirin 81 Mg Enteric Tablet PO 81 mg QAM ROMULO Administration Atorvastatin Calcium 20 mg 02/01/21 09:00 02/08/21 09:12 Atorvastatin 20 Mg Tablet PO 20 mg DAILY ROMULO Administration Carvedilol 12.5 mg 02/08/21 21:00 02/08/21 20:58 Carvedilol 12.5 Mg Tablet PO 12.5 mg Q12HR ROMULO Administration Dextrose 12.5 gm 01/31/21 00:00 Dextrose 50% 25 Gm/50 Ml Syringe IV PUSH PRN PRN Hypoglycemia Protocol Diphenhydramine HCl 50 mg 02/03/21 03:17 02/03/21 03:24 Diphenhydramine Hcl Cap 25 Mg Capsule PO 50 mg Q6H PRN Administration Itching Doxycycline Hyclate 100 mg 02/09/21 09:00 Doxycycline Hyclate 100 Mg Tablet PO Q12HR ROMULO Epoetin Arturo-epbx 10,000 units 02/05/21 06:39 02/07/21 12:52 Epoetin Arturo-Epbx 10,000 Units/Ml Vial IV PUSH Not Given MOWEFR ROMULO Gabapentin 100 mg 02/01/21 21:00 02/08/21 20:58 Gabapentin 100 Mg Capsule PO 100 mg HS ROMULO Administration Glucagon 1 mg 01/31/21 00:00 Glucagon For Inj 1 Mg Vial IM PRN PRN Hypoglycemia Protocol Glucose 15 gm 01/31/21 00:00 Glucose Oral Gel 15 Gm Of Glucse In 37.5 Gm Tube PO PRN PRN Hypoglycemia Protocol Heparin Sodium (Porcine) 5,000 units 02/01/21 21:00 02/08/21 20:58 Heparin Sodium 5,000 Units/Ml Vial SUB-Q 5,000 units Q12HR ROMULO Administration Dextrose 1,000 mls @ 100 mls/hr 01/31/21 00:00 Dextrose 5% 1,000 Ml IVPB PRN PRN Hypoglycemia Protocol Insulin Aspart 2 - 5 units 01/31/21 08
[2021-02-09] MEDS: HEPARIN SODIUM 5,000 UNITS/ML VIAL 5000 UNITS SUB-Q ×2 (09:09→19:53)
[2021-02-09] MEDS: carvediloL 12.5 MG TABLET PO ×2 (09:10→19:52)
[2021-02-09] MEDS: SACCHAROMYCES BOULARDII 250 MG CAPSULE PO ×2 (09:11→17:12)
[2021-02-09] MEDS: NIFEdipine 30 MG TAB.ER.24 60 MG PO (09:11)
[2021-02-09] MEDS: PANTOPRAZOLE 40 MG TABLET PO (09:11)
[2021-02-09] MEDS: ATORVASTATIN 20 MG TABLET PO (09:11)
[2021-02-09] MEDS: lisinopriL 10 MG TABLET PO (09:11)
[2021-02-09] MEDS: VITAMIN B CMPLX/VIT C/FOLIC AC 1 CAPSULE 1 CAP PO (09:11)
[2021-02-09] MEDS: ASPIRIN 81 MG ENTERIC TABLET PO (09:11)
[2021-02-09] MEDS: MUPIROCIN 2% OINT 22 GM TUBE 1 APPLIC TOPICAL ×3 (09:12→17:13)
--- NOTE | 2021-02-09 10:43 | PM.IMPN ---
Progress Note: A&P Assessment and Plan (1) Junctional rhythm: Code(s): I49.8 - Other specified cardiac arrhythmias Status: Acute Assessment and Plan: Telemetry shows that the patient intermittently goes into what appears to be an accelerated junctional rhythm. -spoke with cardiology, plan for stress tomorrow -hx of cardiac stents with new onset REY for the last month. -Continue coreg (dose decreased), aspirin, and lisinopril (2) Cellulitis and abscess of buttock: Code(s): L02.31 - Cutaneous abscess of buttock; L03.317 - Cellulitis of buttock Status: Acute Assessment and Plan: Patient has been on imipenem since 02/01/21 and vancomycin -white blood cell count continues to be elevated. Repeat CT shows worsening infection -she has completed vancomycin and imipenem and now on local bactroban. She might need some of these areas opened up and packed since antibiotics may not be getting to the area efficiently. This will be done outpt. -blood cultures negative -repeat wound culture with no predominant organism (3) ESRD on dialysis: Code(s): N18.6 - End stage renal disease; Z99.2 - Dependence on renal dialysis Status: Acute Assessment and Plan: Currently undergoing dialysis -she typically goes Wednesday and Wednesday (4) Hypertension: Code(s): I10 - Essential (primary) hypertension Status: Chronic Assessment and Plan: Last blood pressure was 130/70 -continue carvedilol, nifedipine and lisinopril -BP on admission 206/89, hypertensive urgency which is resolved (chest pain resolved) (5) CHF (congestive heart failure): Code(s): I50.9 - Heart failure, unspecified Status: Chronic Assessment and Plan: Appears euvolemic at this time -Echo EF of 55% with grade 1 diastolic dysfunction -Continue with Coreg -continue aspirin and atorvastatin at discharge -patient will need to follow up with a crepe box tender in this area since she moved from [place] and does not have one (6) DM2 (diabetes mellitus, type 2): Code(s): E11.9 - Type 2 diabetes mellitus without complications Status: Chronic Assessment and Plan: Last glucose 80 -continue sliding scale insulin -continue Accu-Cheks (7) V-tach: Code(s): I47.2 - Ventricular tachycardia Status: Acute Assessment and Plan: Nonsustained episodes of V-tach 16 beats earlier in the stay -no episodes noted on recent telemetry but now in a junctional rhythm -continue Coreg -cardiology consulted (8) REY (dyspnea on exertion): Code(s): R06.00 - Dyspnea, unspecified Status: Acute Assessment and Plan: Persistent x 1 month -CTA without evidence of PE Subjective Date/time seen: 02/09/21 10:43 Interval history: Pt is a 55-year-old female here for hidradenitis with infection. Patient was seen today and feels the same as yesterday with no changes. She is tired today. She has complaints of REY and pain to her bottom. No CP. Exam Narrative: General: Well developed well nourished patient in NAD HEENT: normocephalic, IJ to the right Neck: supple Neuro: Alert and oriented x4 CV:RRR. tele shows that she goes in and out of an accelerated junctional rhythm which she is now currently in. Resp:CTA--no crackles, rhonchi or wheezing Abd: Soft, non distended. No pain to palpation. Positive bowel sounds Extremities: No swelling, erythema, or pain to palpation. Buttocks: Multiple areas of discharge with tracks. Please see wound care notes Objective Data Vital Signs Vital Signs: Vital Signs - 24 hr 02/08/21 12:00 02/08/21 14:15 02/08/21 16:00 Temperature 97.8 F Pulse Rate 78 86 74 Respiratory Rate 16 Blood Pressure 121/61 Pulse Oximetry 100 02/08/21 19:47 02/08/21 20:00 02/08/21 20:58 Temperature 96.8 F L Pulse Rate 73 62 73 Respiratory Rate 16 Blood Pressure 129/49 L Puls
[2021-02-09] MEDS: DOXYCYCLINE HYCLATE 100 MG TABLET PO ×2 (11:27→19:53)
[2021-02-09 12:03] LABS: Glucose Point of Care 106 mg/dl (65-105)
--- NOTE | 2021-02-09 12:55 | PM.PNNEP ---
Progress Note: A&P Assessment and Plan (1) End stage renal disease: Code(s): N18.6 - End stage renal disease Status: Chronic Assessment and Plan: HD tomorrow and continue M/W/F schedule electrolytes, volume status, and clearance acceptable (2) Cellulitis and abscess of buttock: Code(s): L02.31 - Cutaneous abscess of buttock; L03.317 - Cellulitis of buttock Status: Acute Assessment and Plan: as demonstrated by physical exam and imaging studies wound cultures with mixed corina and blood culture negative imaging without discrete abscess or fluid collections on antibiotics General Surgery following - no need for surgical intervention at this time but will need follow-up with wound care (3) Junctional rhythm: Code(s): I49.8 - Other specified cardiac arrhythmias Status: Acute Assessment and Plan: Cardiology following as noted by telemetry stress test tomorrow for further evaluation continue aggressive medical management given known history of CAD/stents (4) Hypertension: Code(s): I10 - Essential (primary) hypertension Status: Chronic Assessment and Plan: blood pressure well controlled at this time hypertensive on admission (which likely led to previous chest pain) continues current medications (5) DM2 (diabetes mellitus, type 2): Code(s): E11.9 - Type 2 diabetes mellitus without complications Status: Chronic Assessment and Plan: follow accuchecks on SSI Will continue to follow. Subjective Date/time seen: 02/09/21 12:55 No real significant change noted at the time of my visit -- still with pain and on/off drainage from her buttocks area; some intermittent SOB but this has not changed and is apparently a long-standing issue/problem; no other issues/events overnight or earlier this AM; no apparent distress voiced. Exam Narrative: General: WD/WN AA female in NAD Heart: normal S1 and S2; no rub Lungs: clear to auscultation Abdomen: soft, nontender, nondistended, positive bowel sounds Extremities: no cyanosis or clubbing; no edema Skin: buttocks wounds noted Objective Data Vital Signs Vital Signs: Vital Signs Temp Pulse Resp BP Pulse Ox 02/09/21 12:00 84 02/09/21 09:13 67 130/70 02/09/21 09:10 70 02/09/21 08:40 69 02/09/21 04:00 80 02/09/21 03:41 36.2 C L 80 18 101/46 L 98 02/09/21 00:00 80 02/08/21 20:58 73 02/08/21 20:00 62 02/08/21 19:47 36.0 C L 73 16 129/49 L 100 02/08/21 16:00 74 02/08/21 14:15 36.6 C 86 16 121/61 100 Intake/Output Intake/Output: Intake & Output 02/06/21 02/07/21 02/08/21 02/09/21 23:59 23:59 23:59 23:59 Intake Total 3130 1310 2330 1175 Output Total 3000 Balance 3130 -1690 2330 1175 Meds/Results Medications: Active Medications Generic Name Dose Route Start Last Admin Trade Name Freq PRN Reason Stop Dose Admin Acetaminophen 650 mg 01/31/21 03:42 02/09/21 02:21 Acetaminophen 325 Mg Tablet PO 650 mg Q6H PRN Administration Mild Pain (1-3) or Fever Alprazolam 0.25 mg 02/01/21 13:03 02/07/21 06:26 Alprazolam (*Crx) 0.25 Mg Tablet PO 0.25 mg BID PRN Administration Anxiety Aspirin 81 mg 02/01/21 09:00 02/09/21 09:11 Aspirin 81 Mg Enteric Tablet PO 81 mg QAM ROMULO Administration Atorvastatin Calcium 20 mg 02/01/21 09:00 02/09/21 09:11 Atorvastatin 20 Mg Tablet PO 20 mg DAILY ROMULO Administration Carvedilol 12.5 mg 02/08/21 21:00 02/09/21 09:10 Carvedilol 12.5 Mg Tablet PO 12.5 mg Q12HR ROMULO Administration Dextrose 12.5 gm 01/31/21 00:00 Dextrose 50% 25 Gm/50 Ml Syringe IV PUSH PRN PRN Hypoglycemia Protocol Diphenhydramine HCl 50 mg 02/03/21 03:17 02/03/21 03:24 Diphenhydramine Hcl Cap 25 Mg Capsule PO 50 mg Q6H PRN Administration Itching Doxycycline Hyclate 100 mg 02/09/21 09:00
[2021-02-09] MEDS: traMADol HCL (*CRX) 25 MG TABLET PO (14:06)
[2021-02-09 16:26] LABS: Glucose Point of Care 108 mg/dl (65-105)
--- NOTE | 2021-02-09 18:13 | PC.NURSE ---
Electrical Subcontractor spoke with Leticia at [facility] made aware of order for treatment in AM
[2021-02-09] MEDS: GABAPENTIN 100 MG CAPSULE PO (19:53)
[2021-02-09 20:58] LABS: Glucose Point of Care 93 mg/dl (65-105)
[2021-02-10] VITALS (25 sets, daily range): BP systolic 126–171; BP diastolic 62–87; PULSE 69–88; RESP 16–20; TEMP 36.2–36.7; O2SAT 93–99
[2021-02-10 04:46] LABS: Basophils Absolute Auto 0.1 K/mm3 (0.0-0.1); Basophils Percent Auto 0.4 % (0.2-1.2); Eosinophils Absolute Auto 0.4 K/mm3 (0-0.3); Eosinophils Percent Auto 1.8 % (0-4.4); Hematocrit 28.7 % (37.0-47.0); Hemoglobin 9.2 g/dL (12.0-15.0); Immature Granulocyte Absolute 0.19 K/mm3 (0.00-0.031); Immature Granulocyte Percent A 0.8 % (0-0.5); Lymphocytes Absolute Auto 3.18 K/mm3 (0.9-3.2); Lymphocytes Percent Auto 13.4 % (18.3-44.2); Mean Corpuscular HGB Conc 32.1 g/dl (32-36); Mean Corpuscular Hemoglobin 31.3 pg (26-34); Mean Corpuscular Volume 97.6 fl (80-100); Mean Platelet Volume 9.7 fl (7.4-10.4); Neutrophils Absolute Auto 18.9 K/mm3 (1.3-6.7); Neutrophils Percent Auto 79.6 % (45.5-73.1); Platelet Count Result 329 k/mm3 (150-375); Red Blood Count 2.94 M/mm3 (4.2-5.4); Red Cell Distribution Width 16.8 % (11.5-14.5); White Blood Count 23.8 K/mm3 (4.5-10.0)
[2021-02-10 04:59] LABS: Albumin Level 2.5 g/dL (3.5-5.1); Anion Gap 6 mmol/L (8-16); Blood Urea Nitrogen 29 mg/dL (7-17); Calcium 8.5 mg/dL (8.4-10.2); Carbon Dioxide 28 mmol/L (22-30); Chloride 98 mmol/L (98-107); Estimated CRCL calculation 10 ml/min; Estimated Glomerular Filt Rate 8; Glucose 85 mg/dL (65-110); Phosphorus 4.2 mg/dL (2.5-4.5); Potassium 4.7 mmol/L (3.4-5.0); Sodium 132 mmol/L (137-145)
[2021-02-10 06:37] LABS: Glucose Point of Care 97 mg/dl (65-105)
[2021-02-10] MEDS: CENTRAL LINE FLUSH 10 ML IV PUSH ×3 (06:41→20:38)
[2021-02-10] MEDS: CENTRAL LINE FLUSH 20 ML IV PUSH (06:42)
--- NOTE | 2021-02-10 08:07 | EST_ITS ---
Patient Info Name: Sussy Jarvis Age: 55 years : 1965 Gender: Female Ht: 65 in Wt: 215 lbs BSA: 2.16 m2 Exam Date: 02/10/2021 1:37 PM Exam Location: [facility] Stress Patient Status: Inpatient Admit Date: 01/31/2021 Staff Ordering Physician: Manish Bright MD Attending Provider: Kesha Billy PA-C Exercise Technologist: Dionne Zhong RDCS Exercise Physician: Jensen Cardoso MD Exam Type: CA stress eryn w NM Study Info Indications - CAD R06.02 - Shortness of breath A regadenoson stress test was performed. Summary 1. Normal sinus rhythm - normal ECG. 2. No ST segment changes following Lexiscan injection. 3. Clinically and electrocardiographically negative Lexiscan stress test. 4. Myocardial perfusion imaging results to be dictated by Radiology. Protocol: Lexiscan Stress ECG Details Stage: REST Duration (min): 3 min : 11 sec HR (bpm): 74 SBP (mmHg): 142 DBP (mmHg): 65 Stage: REST Duration (min): 8 min : 49 sec HR (bpm): 76 SBP (mmHg): 142 DBP (mmHg): 65 Stage: STAGE 1 Duration (min): 1 min : 0 sec HR (bpm): 90 SBP (mmHg): 142 DBP (mmHg): 65 Stage: RECOVERY Duration (min): 1 min : 0 sec HR (bpm): 87 SBP (mmHg): 142 DBP (mmHg): 54 Stage: RECOVERY Duration (min): 2 min : 0 sec HR (bpm): 87 SBP (mmHg): 142 DBP (mmHg): 54 Stage: RECOVERY Duration (min): 3 min : 0 sec HR (bpm): 85 SBP (mmHg): 139 DBP (mmHg): 58 Stage: RECOVERY Duration (min): 3 min : 20 sec HR (bpm): 85 SBP (mmHg): 139 DBP (mmHg): 58 Rest HR: 76 bpm Peak HR: 91 bpm Rest Sys BP: 142 mmHg Peak Sys BP: 142 mmHg Max Pred HR: 165 bpm % Max Pred HR: 55 % Target HR: 140 bpm Max RPP: 12,922 bpm*mmHg BP Response: Normal blood pressure response Termination Reason: Completed protocol Cardiac Symptoms: None Total Time: 1 min : 0 sec Rest Castelan BP: 65 mmHg Peak Castelan BP: 54 mmHg Total Dose: 0.4 mg Resting ECG Normal sinus rhythm - normal ECG. Stress ECG No ST segment changes following Lexiscan injection. Arrhythmias None. Report Signatures
[2021-02-10 08:24] LABS: CRP 4.8 mg/dL (<1.0)
[2021-02-10] MEDS: EPOETIN ALFA-EPBX 10,000 UNITS/ML VIAL 10000 UNITS IV PUSH (09:44)
--- NOTE | 2021-02-10 11:06 | PM.PNNEP ---
Progress Note: A&P Assessment and Plan (1) End stage renal disease: Code(s): N18.6 - End stage renal disease Status: Chronic Assessment and Plan: HD today and continue M/W/ schedule electrolytes, volume status, and clearance acceptable (2) Cellulitis and abscess of buttock: Code(s): L02.31 - Cutaneous abscess of buttock; L03.317 - Cellulitis of buttock Status: Acute Assessment and Plan: as demonstrated by physical exam and imaging studies wound cultures with mixed corina and blood culture negative imaging without discrete abscess or fluid collections on antibiotics General Surgery following - no need for surgical intervention at this time but will need follow-up with wound care/Plastic Surgery (3) Junctional rhythm: Code(s): I49.8 - Other specified cardiac arrhythmias Status: Acute Assessment and Plan: Cardiology following as noted by telemetry stress test today for further evaluation continue aggressive medical management given known history of CAD/stents (4) Hypertension: Code(s): I10 - Essential (primary) hypertension Status: Chronic Assessment and Plan: blood pressure well controlled at this time hypertensive on admission (which likely led to previous chest pain) continues current medications (5) DM2 (diabetes mellitus, type 2): Code(s): E11.9 - Type 2 diabetes mellitus without complications Status: Chronic Assessment and Plan: follow accuchecks on SSI Will continue to follow. Subjective Date/time seen: 02/10/21 11:06 Tolerating dialysis at the time of my visit (seen on HD at 10:55am); appears in good spirits; no new issues or problems to report; no events overnight or earlier this AM; tentatively schedule for stress test later this morning; no apparent distress voiced. Exam Narrative: General: WD/WN AA female in NAD Heart: normal S1 and S2; no rub Lungs: clear to auscultation Abdomen: soft, nontender, nondistended, positive bowel sounds Extremities: no cyanosis or clubbing; no edema Skin: buttocks wounds present Objective Data Vital Signs Vital Signs: Vital Signs Temp Pulse Resp BP Pulse Ox 02/10/21 11:01 70 162/79 H 02/10/21 10:45 72 170/81 H 02/10/21 10:30 70 157/78 H 02/10/21 10:15 71 167/83 H 02/10/21 10:00 72 165/85 H 02/10/21 09:45 72 163/79 H 02/10/21 09:30 71 159/87 H 02/10/21 09:15 69 163/82 H 02/10/21 09:00 86 160/79 H 02/10/21 08:45 86 157/81 H 02/10/21 08:30 86 158/85 H 02/10/21 08:20 36.7 C 88 18 161/80 H 02/10/21 08:00 86 02/10/21 05:31 36.2 C L 83 16 126/63 93 02/10/21 04:00 81 02/10/21 00:00 81 02/09/21 20:00 75 02/09/21 19:52 75 02/09/21 19:28 36.6 C 72 16 127/50 L 98 02/09/21 16:00 85 02/09/21 13:50 36.5 C 85 16 130/61 99 Intake/Output Intake/Output: Intake & Output 02/07/21 02/08/21 02/09/21 02/10/21 23:59 23:59 23:59 23:59 Intake Total 1310 2330 1575 400 Output Total 3000 3000 Balance -1690 2330 1575 -2600 Meds/Results Medications: Active Medications Generic Name Dose Route Start Last Admin Trade Name Mick PRN Reason Stop Dose Admin Acetaminophen 650 mg 01/31/21 03:42 02/09/21 18:00 Acetaminophen 325 Mg Tablet PO 650 mg Q6H PRN Administration Mild Pain (1-3) or Fever Alprazolam 0.25 mg 02/01/21 13:03 02/07/21 06:26 Alprazolam (*Crx) 0.25 Mg Tablet PO 0.25 mg BID PRN Administration Anxiety Aspirin 81 mg 02/01/21 09:00 02/09/21 09:11 Aspirin 81 Mg Enteric Tablet PO 81 mg QAM ROMULO Administration Atorvastatin Calcium 20 mg 02/01/21 09:00 02/09/21 09:11 Atorvastatin 20 Mg Tablet PO 20 mg DAILY ROMULO Administration Carvedilol 12.5 mg 02/08/21 21:00 02/10/21 12:15 Carvedilol 12.5 Mg Tablet PO 12.5 mg Q12HR ROMULO Administration Dextrose 12.5 gm
--- NOTE | 2021-02-10 12:12 | PM.PNGS ---
Progress Note: A&P Assessment and Plan (1) Hidradenitis: Code(s): L73.2 - Hidradenitis suppurativa Status: Acute Assessment and Plan: cont local wound care, plan to send to plastics for definitive care as outpt, cont abx Subjective Subjective Date/Time Seen: 02/10/21 12:12 no acute issues, waiting on stress test Review of Systems Review of Systems: All systems reviewed & are unremarkable except as noted in HPI and below Exam Const: General: cooperative, comfortable and no acute distress Orientation/consciousness: patient oriented x3 Resp: Auscultation: clear to auscultation bilaterally Cardio: Rate: regular rate Rhythm: regular rhythm GI: Inspection: non-distended GI Palp: No abdominal tenderness and Yes Soft to palpation Skin: Other: gluteal hidradenitis - unchanged, mod purulent drainage diffusely Objective Data Vital Signs Vital Signs: Vital Signs - 24 hr 02/09/21 13:50 02/09/21 16:00 02/09/21 19:28 Temperature 36.5 C 36.6 C Pulse Rate 85 85 72 Respiratory Rate 16 16 Blood Pressure 130/61 127/50 L Pulse Oximetry 99 98 02/09/21 19:52 02/09/21 20:00 02/10/21 00:00 Temperature Pulse Rate 75 75 81 Respiratory Rate Blood Pressure Pulse Oximetry 02/10/21 04:00 02/10/21 05:31 02/10/21 08:00 Temperature 36.2 C L Pulse Rate 81 83 86 Respiratory Rate 16 Blood Pressure 126/63 Pulse Oximetry 93 02/10/21 08:20 02/10/21 08:30 02/10/21 08:45 Temperature 36.7 C Pulse Rate 88 86 86 Respiratory Rate 18 Blood Pressure 161/80 H 158/85 H 157/81 H Pulse Oximetry 02/10/21 09:00 02/10/21 09:15 02/10/21 09:30 Temperature Pulse Rate 86 69 71 Respiratory Rate Blood Pressure 160/79 H 163/82 H 159/87 H Pulse Oximetry 02/10/21 09:45 02/10/21 10:00 02/10/21 10:15 Temperature Pulse Rate 72 72 71 Respiratory Rate Blood Pressure 163/79 H 165/85 H 167/83 H Pulse Oximetry 02/10/21 10:30 02/10/21 10:45 02/10/21 11:01 Temperature Pulse Rate 70 72 70 Respiratory Rate Blood Pressure 157/78 H 170/81 H 162/79 H Pulse Oximetry 02/10/21 11:30 02/10/21 11:48 Temperature 36.6 C Pulse Rate 73 77 Respiratory Rate 18 Blood Pressure 171/81 H 171/83 H Pulse Oximetry Intake/Output Intake/Output: Intake & Output 02/07/21 02/08/21 02/09/21 02/10/21 23:59 23:59 23:59 23:59 Intake Total 1310 2330 1575 400 Output Total 3000 3000 Balance -1690 2330 1575 -2600 Meds/Results Medications: Active Medications Generic Name Dose Route Start Last Admin Trade Name Freq PRN Reason Stop Dose Admin Acetaminophen 650 mg 01/31/21 03:42 02/09/21 18:00 Acetaminophen 325 Mg Tablet PO 650 mg Q6H PRN Administration Mild Pain (1-3) or Fever Alprazolam 0.25 mg 02/01/21 13:03 02/07/21 06:26 Alprazolam (*Crx) 0.25 Mg Tablet PO 0.25 mg BID PRN Administration Anxiety Aspirin 81 mg 02/01/21 09:00 02/09/21 09:11 Aspirin 81 Mg Enteric Tablet PO 81 mg QAM ROUMLO Administration Atorvastatin Calcium 20 mg 02/01/21 09:00 02/09/21 09:11 Atorvastatin 20 Mg Tablet PO 20 mg DAILY ROMULO Administration Carvedilol 12.5 mg 02/08/21 21:00 02/09/21 19:52 Carvedilol 12.5 Mg Tablet PO 12.5 mg Q12HR ROMULO Administration Dextrose 12.5 gm 01/31/21 00:00 Dextrose 50% 25 Gm/50 Ml Syringe IV PUSH PRN PRN Hypoglycemia Protocol Diphenhydramine HCl 50 mg 02/03/21 03:17 02/03/21 03:24 Diphenhydramine Hcl Cap 25 Mg Capsule PO 50 mg Q6H PRN Administration Itching Doxycycline Hyclate 100 mg 02/09/21 09:00 02/09/21 19:53 Doxycycline Hyclate 100 Mg Tablet PO 100 mg Q12HR ROMULO Administration Epoetin Arturo-epbx 10,000 units 02/10/21 17:00 02/10/21 09:44 Epoetin Arturo-Epbx 10,000 Units/Ml Vial IV PUSH 10,000 units [id number] ROMULO Administration Gabapentin 100 mg 02/01/21 21:00 02/09/21 19:53 Gabapentin 100 Mg Capsule PO 100 mg HS
[2021-02-10] MEDS: carvediloL 12.5 MG TABLET PO ×2 (12:15→20:37)
[2021-02-10] MEDS: lisinopriL 10 MG TABLET PO (12:16)
[2021-02-10] MEDS: NIFEdipine 30 MG TAB.ER.24 60 MG PO (12:16)
[2021-02-10] MEDS: MUPIROCIN 2% OINT 22 GM TUBE 1 APPLIC TOPICAL ×2 (12:19→18:02)
[2021-02-10 12:21] LABS: Glucose Point of Care 77 mg/dl (65-105)
[2021-02-10] MEDS: DOXYCYCLINE HYCLATE 100 MG TABLET PO ×2 (15:09→20:37)
[2021-02-10] MEDS: PANTOPRAZOLE 40 MG TABLET PO (15:09)
[2021-02-10] MEDS: SACCHAROMYCES BOULARDII 250 MG CAPSULE PO ×2 (15:09→20:37)
[2021-02-10] MEDS: ASPIRIN 81 MG ENTERIC TABLET PO (15:09)
[2021-02-10] MEDS: VITAMIN B CMPLX/VIT C/FOLIC AC 1 CAPSULE 1 CAP PO (15:09)
[2021-02-10] MEDS: ATORVASTATIN 20 MG TABLET PO (15:09)
[2021-02-10 15:11] LABS: Glucose Point of Care 106 mg/dl (65-105)
[2021-02-10] MEDS: traMADol HCL (*CRX) 25 MG TABLET PO ×2 (15:13→20:36)
--- NOTE | 2021-02-10 15:47 | PM.IMPN ---
Progress Note: A&P Assessment and Plan (1) Junctional rhythm: Code(s): I49.8 - Other specified cardiac arrhythmias Status: Acute Assessment and Plan: Telemetry shows that the patient intermittently goes into what appears to be an accelerated junctional rhythm. -results of stress test pending -hx of cardiac stents with new onset REY for the last month. -Continue coreg (dose decreased), aspirin, and lisinopril (2) Cellulitis and abscess of buttock: Code(s): L02.31 - Cutaneous abscess of buttock; L03.317 - Cellulitis of buttock Status: Acute Assessment and Plan: Patient has been on imipenem since 02/01/21 and vancomycin -white blood cell count continues to be elevated. Repeat CT shows worsening infection -she has completed vancomycin and imipenem and now on local bactroban. She might need some of these areas opened up and packed since antibiotics may not be getting to the area efficiently. -blood cultures negative -repeat wound culture with no predominant organism. slight growth of yeast in her regular culture but not fungal culture. doubt systemic yeast infection as this would be causing more symptoms. Will do local yeast treatment. (3) ESRD on dialysis: Code(s): N18.6 - End stage renal disease; Z99.2 - Dependence on renal dialysis Status: Acute Assessment and Plan: Currently undergoing dialysis -she typically goes Wednesday and Wednesday (4) Hypertension: Code(s): I10 - Essential (primary) hypertension Status: Chronic Assessment and Plan: Last blood pressure was 148/62 -continue carvedilol, nifedipine and lisinopril -BP on admission 206/89, hypertensive urgency which is resolved (chest pain resolved) (5) CHF (congestive heart failure): Code(s): I50.9 - Heart failure, unspecified Status: Chronic Assessment and Plan: Appears euvolemic at this time -Echo EF of 55% with grade 1 diastolic dysfunction -Continue with Coreg -continue aspirin and atorvastatin at discharge -patient will need to follow up with a metallurgical engineer in this area since she moved from [place] and does not have one (6) DM2 (diabetes mellitus, type 2): Code(s): E11.9 - Type 2 diabetes mellitus without complications Status: Chronic Assessment and Plan: Last glucose 106 -continue sliding scale insulin -continue Accu-Cheks (7) V-tach: Code(s): I47.2 - Ventricular tachycardia Status: Acute Assessment and Plan: Nonsustained episodes of V-tach 16 beats earlier in the stay -no episodes noted on recent telemetry but now in a junctional rhythm -continue Coreg -cardiology consulted (8) REY (dyspnea on exertion): Code(s): R06.00 - Dyspnea, unspecified Status: Acute Assessment and Plan: Persistent x 1 month -CTA without evidence of PE Additional Plan Subjective Date/time seen: 02/10/21 15:48 Interval history: Pt is a 55-year-old female here for hidradenitis with infection. Patient was seen today and feels the same as yesterday with no changes. She is tired today and has had a long day.. She has complaints of REY and pain to her bottom. No CP. She is hungry. Exam Narrative: General: Well developed well nourished patient in NAD HEENT: normocephalic, IJ to the right Neck: supple Neuro: Alert and oriented x4 CV:RRR. tele shows that she goes in and out of an accelerated junctional rhythm. currently in NSR Resp:CTA--no crackles, rhonchi or wheezing Abd: Soft, non distended. No pain to palpation. Positive bowel sounds Extremities: No swelling, erythema, or pain to palpation. Buttocks: Multiple areas of discharge with tracks. Please see wound care notes Objective Data Vital Signs Vital Signs: Vital Signs - 24 hr 02/09/21 16:00 02/09/21 19:28 02/09/21 19:52 Temperature 97.8 F Pulse Rate 85 72 75 Respiratory Rate 16 Blood Pressure 127/5
--- NOTE | 2021-02-10 19:06 | PM.PNCARD ---
Progress Note: A&P Additional Plan 55-year-old lady with: Coronary artery disease previous PCI in [facility] number of years ago. The details of this are unavailable to us. She however remains asymptomatic of chest pain and the results of today's Lexiscan stress test obviously are reassuring. This chronically ill lady who has a complex case and also end-stage renal disease clearly requires cardiology follow-up in this community and we will arrange for appropriate follow-up in our office upon discharge. No other specific cardiac recommendations today. Jensen Cardoso MD [facility] Subjective Date/time seen: 02/10/21 19:06 Interval history: Pt is a 55-year-old female here for hidradenitis with infection. Date of service 02/08/2021: Re-consulted because of abnormal rhythm. Patient is going in and out of a wider complex rhythm that has a left bundle-branch morphology. She does feel short of breath at times but otherwise is sitting in her room comfortable while in this rhythm without any complaints of chest pain. She does feel tired but she has felt tired for a month she states. Date of service 02/09/2021: Still in and out of what appears to be accelerated junctional or accelerated idioventricular rhythm. She is asymptomatic. No chest pain or shortness of breath. Date of service 02/10/2021: Follow-up visit this evening to review results of her Lexiscan stress test. The results showed no scintigraphic evidence of ischemia and a vigorous ejection fraction of 70%. She was happy to receive these findings Exam Narrative: General: Very pleasant obese female lying supine in bed, Well developed, alert and oriented x3. No apparent distress, comfortable, and cooperative. Head: atraumatic, normocephalic Eyes: EOM intact, sclerae anicteric, conjunctivae unremarkable Ears/Nose: external inspection of ears and nose were grossly normal Mouth/Throat: oral mucosa pink and moist Neck: supple, normal range of motion, no jugular venous distention or carotid bruits, thyroid nonpalpable, trachea midline. Cardiac: Regular rate and rhythm, normal S1-S2, soft early systolic murmur, no clicks, gallops, or rubs. Lungs: Clear to auscultation bilaterally, no rales, wheezes, or rhonchi. Abdomen: Obese, Soft, nontender, nondistended, positive bowel sounds throughout. No appreciable hepatosplenomegaly, no rebound guarding or rigidity noted. Abdominal aorta nonpalpable, no appreciable bruits. Extremities: No edema, clubbing, and or cyanosis. Extremities warm and well perfused. Skin: Warm and dry without ecchymoses, rashes, and/or petechiae. Musculoskeletal: Muscle strength and tone intact throughout without obvious deformities. Vascular: Carotid upstrokes 2+ bilaterally, radial pulses 2+ bilaterally, dorsalis pedis pulses 2+ bilaterally, posterior tibialis pulses palpable bilaterally. Palpable thrill and auscultated bruit left upper extremity AV fistula Neurologic: Cranial nerves 2-12 grossly intact, examination grossly nonfocal Pscyhiatric: Mood calm and appropriate. Objective Data Vital Signs Vital Signs: Vital Signs - 24 hr 02/09/21 19:28 02/09/21 19:52 02/09/21 20:00 Temperature 36.6 C Pulse Rate 72 75 75 Respiratory Rate 16 Blood Pressure 127/50 L Pulse Oximetry 98 02/10/21 00:00 02/10/21 04:00 02/10/21 05:31 Temperature 36.2 C L Pulse Rate 81 81 83 Respiratory Rate 16 Blood Pressure 126/63 Pulse Oximetry 93 02/10/21 08:00 02/10/21 08:20 02/10/21 08:30 Temperature 36.7 C Pulse Rate 86 88 86 Respiratory Rate 18 Blood Pressure 161/80 H 158/85 H Pulse Oximetry 02/10/21 08:45 02/10/21 09:00 02/10/21 09:15 Temperature Pulse Rate 86 86 69 Respiratory Rate Blood Pressure 157/81 H 160/79 H 163/82 H Pulse Oximetry 02/10/21 09:30 02/10/21 09:45 02/10/21 10:00 Temperature Pulse Rate 71 72 72 Respiratory Rate
[2021-02-10] MEDS: ALPRAZolam (*CRX) 0.25 MG TABLET PO (20:36)
[2021-02-10] MEDS: HEPARIN SODIUM 5,000 UNITS/ML VIAL 5000 UNITS SUB-Q (20:37)
[2021-02-10] MEDS: MICONAZOLE NITRATE 2% CREAM 30 GM TUBE 1 APPLIC TOPICAL (20:38)
[2021-02-10] MEDS: GABAPENTIN 100 MG CAPSULE PO (20:38)
[2021-02-10 21:13] LABS: Glucose Point of Care 107 mg/dl (65-105)
[2021-02-11] VITALS: PULSE 73
[2021-02-11 04:00] VITALS: PULSE 68
[2021-02-11 04:13] VITALS: BP 140/60; PULSE 75; RESP 18; TEMP 36.3; O2SAT 97
[2021-02-11] MEDS: CENTRAL LINE FLUSH 10 ML IV PUSH (04:25)
[2021-02-11 05:19] LABS: Basophils Absolute Auto 0.1 K/mm3 (0.0-0.1); Basophils Percent Auto 0.5 % (0.2-1.2); Eosinophils Absolute Auto 0.4 K/mm3 (0-0.3); Eosinophils Percent Auto 1.5 % (0-4.4); Hematocrit 29.4 % (37.0-47.0); Hemoglobin 9.1 g/dL (12.0-15.0); Immature Granulocyte Absolute 0.26 K/mm3 (0.00-0.031); Lymphocytes Absolute Auto 3.65 K/mm3 (0.9-3.2); Mean Corpuscular Hemoglobin 30.3 pg (26-34); Mean Platelet Volume 9.9 fl (7.4-10.4); Monocytes Absolute Auto 1.1 K/mm3 (0.1-0.6); Monocytes Percent Auto 4.3 % (2.6-8.5); Neutrophils Absolute Auto 20.6 K/mm3 (1.3-6.7); Neutrophils Percent Auto 78.7 % (45.5-73.1); Platelet Count Result 321 k/mm3 (150-375); White Blood Count 26.1 K/mm3 (4.5-10.0)
[2021-02-11 05:40] LABS: Anion Gap 5 mmol/L (8-16); Blood Urea Nitrogen 14 mg/dL (7-17); Calcium 8.5 mg/dL (8.4-10.2); Carbon Dioxide 28 mmol/L (22-30); Chloride 102 mmol/L (98-107); Estimated CRCL calculation 15 ml/min; Estimated Glomerular Filt Rate 12; Glucose 73 mg/dL (65-110); Potassium 4.1 mmol/L (3.4-5.0); Sodium 135 mmol/L (137-145)
[2021-02-11 07:44] LABS: Glucose Point of Care 72 mg/dl (65-105)
[2021-02-11 08:00] VITALS: PULSE 73
[2021-02-11 08:01] VITALS: PULSE 75
[2021-02-11] MEDS: ATORVASTATIN 20 MG TABLET PO (08:01)
[2021-02-11] MEDS: VITAMIN B CMPLX/VIT C/FOLIC AC 1 CAPSULE 1 CAP PO (08:01)
[2021-02-11] MEDS: lisinopriL 10 MG TABLET PO (08:01)
[2021-02-11] MEDS: ASPIRIN 81 MG ENTERIC TABLET PO (08:01)
[2021-02-11] MEDS: carvediloL 12.5 MG TABLET PO (08:01)
[2021-02-11] MEDS: PANTOPRAZOLE 40 MG TABLET PO (08:01)
[2021-02-11] MEDS: HEPARIN SODIUM 5,000 UNITS/ML VIAL 5000 UNITS SUB-Q (08:02)
[2021-02-11] MEDS: MICONAZOLE NITRATE 2% CREAM 30 GM TUBE 1 APPLIC TOPICAL (08:02)
[2021-02-11] MEDS: DOXYCYCLINE HYCLATE 100 MG TABLET PO (08:02)
[2021-02-11] MEDS: NIFEdipine 30 MG TAB.ER.24 60 MG PO (08:02)
[2021-02-11] MEDS: SACCHAROMYCES BOULARDII 250 MG CAPSULE PO (08:02)
[2021-02-11] MEDS: ACETAMINOPHEN 325 MG TABLET 650 MG PO (08:10)
--- NOTE | 2021-02-11 09:50 | PM.PNGS ---
Progress Note: A&P Assessment and Plan (1) Hidradenitis: Code(s): L73.2 - Hidradenitis suppurativa Status: Acute Assessment and Plan: extensive, chronic wounds, will need plastics evaluation, d/w plastics at [facility] and they will see her urgently as outpt for further workup and care, cont local wound care and abx Subjective Subjective Date/Time Seen: 02/11/21 09:50 feels ok, no acute issues Review of Systems Review of Systems: All systems reviewed & are unremarkable except as noted in HPI and below Exam Const: General: cooperative, comfortable, no acute distress and ill appearing Resp: Effort & Inspection: normal respiratory effort Auscultation: clear to auscultation bilaterally Cardio: Rate: regular rate Rhythm: regular rhythm GI: Inspection: normal to inspection GI Palp: Yes Soft to palpation, No Tenderness to palpation present (GI) and No Guarding due to palpation present (GI) Skin: Other: bilateral gluteal hidradenitis unchanged, mod drainage, mod TTP Objective Data Vital Signs Vital Signs: Vital Signs - 24 hr 02/10/21 10:00 02/10/21 10:15 02/10/21 10:30 Temperature Pulse Rate 72 71 70 Respiratory Rate Blood Pressure 165/85 H 167/83 H 157/78 H Pulse Oximetry 02/10/21 10:45 02/10/21 11:01 02/10/21 11:30 Temperature Pulse Rate 72 70 73 Respiratory Rate Blood Pressure 170/81 H 162/79 H 171/81 H Pulse Oximetry 02/10/21 11:48 02/10/21 12:00 02/10/21 12:15 Temperature 36.6 C Pulse Rate 77 77 79 Respiratory Rate 18 Blood Pressure 171/83 H Pulse Oximetry 02/10/21 14:37 02/10/21 16:00 02/10/21 20:00 Temperature 36.3 C L Pulse Rate 75 74 75 Respiratory Rate 16 Blood Pressure 148/62 H Pulse Oximetry 99 02/10/21 20:36 02/10/21 20:37 02/11/21 00:00 Temperature 36.4 C Pulse Rate 75 75 73 Respiratory Rate 20 Blood Pressure 147/63 H Pulse Oximetry 99 02/11/21 04:00 02/11/21 04:13 02/11/21 08:00 Temperature 36.3 C L Pulse Rate 68 75 73 Respiratory Rate 18 Blood Pressure 140/60 Pulse Oximetry 97 02/11/21 08:01 Temperature Pulse Rate 75 Respiratory Rate Blood Pressure Pulse Oximetry Intake/Output Intake/Output: Intake & Output 02/08/21 02/09/21 02/10/21 02/11/21 23:59 23:59 23:59 23:59 Intake Total 2330 1575 1090 0 Output Total 3000 Balance 2330 1575 -1910 0 Meds/Results Medications: Active Medications Generic Name Dose Route Start Last Admin Trade Name Freq PRN Reason Stop Dose Admin Acetaminophen 650 mg 01/31/21 03:42 02/11/21 08:10 Acetaminophen 325 Mg Tablet PO 650 mg Q6H PRN Administration Mild Pain (1-3) or Fever Alprazolam 0.25 mg 02/01/21 13:03 02/10/21 20:36 Alprazolam (*Crx) 0.25 Mg Tablet PO 0.25 mg BID PRN Administration Anxiety Aspirin 81 mg 02/01/21 09:00 02/11/21 08:01 Aspirin 81 Mg Enteric Tablet PO 81 mg QAM ROMULO Administration Atorvastatin Calcium 20 mg 02/01/21 09:00 02/11/21 08:01 Atorvastatin 20 Mg Tablet PO 20 mg DAILY ROMULO Administration Carvedilol 12.5 mg 02/08/21 21:00 02/11/21 08:01 Carvedilol 12.5 Mg Tablet PO 12.5 mg Q12HR ROMULO Administration Dextrose 12.5 gm 01/31/21 00:00 Dextrose 50% 25 Gm/50 Ml Syringe IV PUSH PRN PRN Hypoglycemia Protocol Diphenhydramine HCl 50 mg 02/03/21 03:17 02/03/21 03:24 Diphenhydramine Hcl Cap 25 Mg Capsule PO 50 mg Q6H PRN Administration Itching Doxycycline Hyclate 100 mg 02/09/21 09:00 02/11/21 08:02 Doxycycline Hyclate 100 Mg Tablet PO 100 mg Q12HR ROMULO Administration Epoetin Arturo-epbx 10,000 units 02/10/21 17:00 02/10/21 09:44 Epoetin Arturo-Epbx 10,000 Units/Ml Vial IV PUSH 10,000 units [id number] ROMULO Administration Gabapentin 100 mg 02/01/21 21:00 02/10/21 20:38 Gabapentin 100 Mg Capsule PO 100 mg HS ROMULO Administration Glucagon 1 mg 01/31/21 00:00 Glucagon For Inj 1 Mg Vial I
[2021-02-11 11:45] LABS: Glucose Point of Care 93 mg/dl (65-105)
--- NOTE | 2021-02-11 11:48 | PM.DS ---
DS: Admitting Diagnosis Discharge Date 02/11/21 Admitting Diagnosis cellulitis DS: Discharge Diagnosis Discharge Diagnosis (1) Junctional rhythm: Code(s): I49.8 - Other specified cardiac arrhythmias Status: Acute Assessment and Plan: Telemetry shows that the patient intermittently goes into what appears to be an accelerated junctional rhythm. - stress test negative -hx of cardiac stents with new onset REY for the last month. -Continue coreg (dose decreased), aspirin, and lisinopril (2) Cellulitis and abscess of buttock: Code(s): L02.31 - Cutaneous abscess of buttock; L03.317 - Cellulitis of buttock Status: Acute Assessment and Plan: Patient has been on imipenem and vancomycin and transition to oral doxy, Bactroban, and is topical antifungal -white blood cell count continues to be elevated. Wound looks like it has improved. -Plan for outpt follow up with Dr. Martínez who is going to consult her for a surgical excision -blood cultures negative -repeat wound culture with no predominant organism but shows scant growth of yeast. Topical fungal ordered. No systemic fungal infection suspected. (3) ESRD on dialysis: Code(s): N18.6 - End stage renal disease; Z99.2 - Dependence on renal dialysis Status: Acute Assessment and Plan: Currently undergoing dialysis -she typically goes Wednesday and Wednesday, continue with that. (4) Hypertension: Code(s): I10 - Essential (primary) hypertension Status: Chronic Assessment and Plan: Last blood pressure was 140/60 -continue carvedilol, nifedipine and lisinopril -BP on admission 206/89, hypertensive urgency which is resolved (chest pain resolved) (5) CHF (congestive heart failure): Code(s): I50.9 - Heart failure, unspecified Status: Chronic Assessment and Plan: Appears euvolemic at this time -Echo EF of 55% with grade 1 diastolic dysfunction -Continue with Coreg -continue aspirin and atorvastatin at discharge -follow up with cardiology outpt (6) DM2 (diabetes mellitus, type 2): Code(s): E11.9 - Type 2 diabetes mellitus without complications Status: Chronic Assessment and Plan: Last glucose 93 -continue home regimen (7) V-tach: Code(s): I47.2 - Ventricular tachycardia Status: Acute Assessment and Plan: Nonsustained episodes of V-tach 16 beats earlier in the stay -no episodes noted on recent telemetry but now in a junctional rhythm -continue Coreg -stress negative, continue BB (8) REY (dyspnea on exertion): Code(s): R06.00 - Dyspnea, unspecified Status: Acute Assessment and Plan: Persistent x 1 month -CTA without evidence of PE (9) Leukocytosis: Code(s): D72.829 - Elevated white blood cell count, unspecified Status: Acute Assessment and Plan: the patient has persistently had a leukocytosis throughout her stay. This is relatively unchanged and I do not think it is indicating the severity of her infection. Her CRP and wound has improved and she feels back to her baseline. This may be chronic but we do not have any outpatient labs to compare it to. She needs to continue oral and topical treatment for her wounds and she needs to follow up with for urgent outpatient referral. Surgery is going to set this up. She is to come back if she runs fevers, has changes to her wounds, or has any other worrisome symptom. f/u with pcp and sx about leukocytosis. DS: Summary Hospital Course Hospital Course: DOS 02/11/21 patient is a 55-year-old female with a history of end-stage renal disease and coronary artery disease who presented to the emergency room on 01/30/2021 for chest pain and buttocks infection. vitals in the ER were temperature 36.1? C, pulse 88, respiratory rate 17, blood pressure 206/89, pulse ox 100 on room air. white blood cell count on admissi
[2021-02-11 12:00] VITALS: PULSE 75
== END 2021-02-11 15:18 | disposition home or self-care (01) | DRG 638 ==
LOC: ANHED 17:46 → ANHIMU 21:13 → ANH2MED 01-31 13:28
PROVIDERS: Emergency Medicine; Internal Medicine; Internal Medicine Cardiovascular Disease; Internal Medicine Nephrology; Nurse Practitioner; Admitting Provider Internal Medicine; Emergency Provider General Practice; Visit Provider Physician Assistant
DX: E11.628 Type 2 diabetes mellitus with other skin complications (principal); I13.2 Hypertensive heart and chronic kidney disease with heart failure and with stage 5 chronic kidney disease, or end stage renal disease; L03.317 Cellulitis of buttock; L02.31 Cutaneous abscess of buttock; I50.32 Chronic diastolic (congestive) heart failure; I47.2 Ventricular tachycardia; N18.6 End stage renal disease; Z99.2 Dependence on renal dialysis; I25.10 Atherosclerotic heart disease of native coronary artery without angina pectoris; Z95.5 Presence of coronary angioplasty implant and graft; R19.7 Diarrhea, unspecified; R61 Generalized hyperhidrosis; K80.20 Calculus of gallbladder without cholecystitis without obstruction; N20.0 Calculus of kidney; L73.2 Hidradenitis suppurativa; Z79.4 Long term (current) use of insulin; E11.22 Type 2 diabetes mellitus with diabetic chronic kidney disease; R07.9 Chest pain, unspecified; Z79.82 Long term (current) use of aspirin; I49.8 Other specified cardiac arrhythmias; R07.89 Other chest pain; I16.0 Hypertensive urgency; E78.2 Mixed hyperlipidemia; E66.9 Obesity, unspecified; Z68.35 Body mass index [BMI] 35.0-35.9, adult
CPT/HCPCS: 36415; 71045; 71046; 71275; 74176; 76705; 78452; 80048; 80053; 80061; 80069; 80074; 80076; 80202; 82948; 83036; 83605; 83615; 83690; 83735; 84100; 84132; 84443; 84484; 85025; 85610; 85730; 86140; 86704; 86706; 87040; 87070; 87102; 87106; 87205; 87206; 93005; 93017; 93306; 96365; 96366; 96367; 96375; 99285; A9270; A9502; C1751; G0257; G0378; J0360; J0743; J1644; J1815; J2405; J2785; J3370; J3475; J7030; Q5105; Q9967